=== PATIENT | male | born 1990 | race Caucasian/White ===

== ENCOUNTER 2020-09-18 08:28 | Outpatient (REF) | payer OTHER, SELFPAY ==
--- NOTE | 2020-09-18 | US_ITS ---
EXAMINATION: US ABDOMEN COMPLETE CLINICAL INFORMATION: SALINAS. COMPARISON: Abdominal ultrasound dated 11/08/2019 TECHNIQUE: Real-time imaging of the abdominal viscera. FINDINGS: PANCREAS: Normal. ABDOMINAL AORTA: The proximal, mid and distal segments are normal in caliber. INFERIOR VENA CAVA: Visualized portions are normal. LIVER: The liver is normal in size. The liver contour is normal. Slight increased liver echogenicity noted. No focal hepatic lesion. There is no intrahepatic biliary duct dilatation seen. GALLBLADDER: The gallbladder is physiologically distended without evidence of stones, sludge, polyps, wall thickening, or pericholecystic fluid. There is mild adenomyomatosis. COMMON BILE DUCT: Normal in caliber measuring 0.5 cm in diameter. RIGHT KIDNEY: Normal. No hydronephrosis. No renal calculi or focal parenchymal lesions. The kidney measures 12.2 cm in maximum dimension. LEFT KIDNEY: Normal. No hydronephrosis. No renal calculi or focal parenchymal lesions. The kidney measures 12.7 cm in maximum dimension. SPLEEN: The spleen measures 14.8 cm in maximum dimension. There is mild splenomegaly. FREE FLUID: None. IMPRESSION: Fatty infiltration of liver without any focal lesion or hepatomegaly. Suspect adenomyomatosis of gallbladder wall. Mild splenomegaly. No major change compared to previous study 11/08/2019.
== END 2020-09-18 08:29 | disposition home or self-care (01) ==
LOC: HO.HMGCX 08:28
PROVIDERS: PCP Internal Medicine; Visit Provider Nurse Practitioner
DX: K75.81 Nonalcoholic steatohepatitis (NASH) (principal)
CPT/HCPCS: 76700

== ENCOUNTER 2020-12-14 07:10 | Outpatient (REF) | payer OTHER, SELFPAY ==
[2020-12-14 11:52] LABS: Hematocrit 50.8 % (42-52); Hemoglobin 17.8 g/dl (14.0-18.0); Mean Corpuscular Hemoglobin 30.3 pg (27.0-33.0); Mean Corpuscular Volume 86.4 fL (80-98); Mean Platelet Volume 11.6 fL (9.4-12.4); Platelet Count 190 X10*3/uL (160-400); Red Blood Count 5.88 X10*6/uL (4.60-5.80); White Blood Count 6.4 X10*3/uL (4.8-10.8)
[2020-12-14 12:11] LABS: Alanine Aminotransferase 61 U/L (0-40); Albumin Level 4.4 g/dL (3.5-5.0); Alkaline Phosphatase 112 U/L (39-117); Anion Gap 15 (12-20); Aspartate Amino Transferase 29 U/L (5-37); Bilirubin Total 0.8 mg/dL (0.0-1.0); Blood Urea Nitrogen 16 mg/dL (9-16); Calcium 9.2 mg/dL (8.4-10.2); Carbon Dioxide 28 mmol/L (22-29); Chloride 102 mmol/L (96-108); Cholesterol 136 mg/dL; Estimated Glomerular Filt Rate > 60; Glucose Fasting 90 mg/dL (60-99); HDL Cholesterol 35 mg/dL; LDL Cholesterol Calculated 77 mg/dl; Potassium 4.4 mmol/l (3.3-5.1); Sodium 141 mmol/L (135-145); Total Protein 6.9 g/dL (6.5-8.0); Triglycerides 121 mg/dL
[2020-12-14 14:06] LABS: Glucose Urine UA NEG (NEG); Leukocyte Esterase Urine NEG (NEG); Nitrite Urine NEG (NEG); Specific Gravity - Urine >= 1.030 (1.005-1.025); Urine Blood NEG (NEG); Urine Ketones NEG (NEG); Urine Protein NEG (NEG-TRACE)
[2020-12-14 14:19] LABS: Appearance Urine CLEAR; Color Urine YELLOW
== END 2020-12-14 07:11 | disposition home or self-care (01) ==
LOC: HO.HMGCLDS 07:10
PROVIDERS: PCP Internal Medicine; Visit Provider Internal Medicine
DX: I10 Essential (primary) hypertension (principal); E55.9 Vitamin D deficiency, unspecified
CPT/HCPCS: 36415; 80053; 80061; 81003; 85027

== ENCOUNTER 2021-02-06 08:31 | Outpatient (REF) | payer OTHER, SELFPAY ==
[2021-02-06 11:43] LABS: Alanine Aminotransferase 55 U/L (0-40); Albumin Level 4.3 g/dL (3.5-5.0); Alkaline Phosphatase 114 U/L (39-117); Anion Gap 11 (12-20); Aspartate Amino Transferase 26 U/L (5-37); Bilirubin Total 0.8 mg/dL (0.0-1.0); Blood Urea Nitrogen 19 mg/dL (9-16); Carbon Dioxide 30 mmol/L (22-29); Chloride 103 mmol/L (96-108); Estimated Glomerular Filt Rate > 60; Glucose Fasting 138 mg/dL (60-99); Potassium 4.3 mmol/L (3.3-5.1); Sodium 140 mmol/L (135-145); Total Protein 6.6 g/dL (6.5-8.0)
[2021-02-11 16:07] LABS: Testosterone, Free 65.2 pg/mL (35.0-155.0); Testosterone, Total 263 ng/dL (250-1100)
== END 2021-02-06 08:32 | disposition home or self-care (01) ==
LOC: HO.HMGCLDS 08:31
PROVIDERS: PCP Internal Medicine; Visit Provider Internal Medicine
DX: Z00.00 Encounter for general adult medical examination without abnormal findings (principal); L65.9 Nonscarring hair loss, unspecified
CPT/HCPCS: 36415; 80053; 84402; 84403

== ENCOUNTER → 2021-02-11 11:04 | Outpatient (BNVA) | payer OTHER, SELFPAY | PROVIDERS: PCP Internal Medicine; Visit Provider Nurse Practitioner ==

== ENCOUNTER 2021-02-13 08:31 | Outpatient (REF) | payer OTHER, SELFPAY ==
[2021-02-13 11:19] LABS: Estimated Average Glucose 91 mg/dL; Hemoglobin A1c % 4.8 %
[2021-02-13 11:43] LABS: Anion Gap 11 (12-20); Blood Urea Nitrogen 15 mg/dL (9-16); Carbon Dioxide 30 mmol/L (22-29); Chloride 102 mmol/L (96-108); Estimated Glomerular Filt Rate > 60; Glucose Fasting 83 mg/dL (60-99); Potassium 4.4 mmol/L (3.3-5.1); Sodium 139 mmol/L (135-145)
[2021-02-15 12:21] LABS: Alpha Fetoprotein 1.2 ng/mL (<6.1)
== END 2021-02-13 08:32 | disposition home or self-care (01) ==
LOC: HO.HMGCLDS 08:31
PROVIDERS: Nurse Practitioner; PCP Internal Medicine; Visit Provider Internal Medicine
DX: K75.81 Nonalcoholic steatohepatitis (NASH) (principal); R73.9 Hyperglycemia, unspecified
CPT/HCPCS: 36415; 80048; 82105; 83036

== ENCOUNTER 2021-02-27 08:22 | Outpatient (REF) | payer OTHER, SELFPAY ==
--- NOTE | ~2021-02-27 | US_ITS ---
EXAMINATION: US ABDOMEN LIMITED CLINICAL INFORMATION: Nonalcoholic steatohepatitis. COMPARISON: Ultrasound abdomen complete 09/18/2020 and 11/08/2019. TECHNIQUE: Real-time imaging of the right upper quadrant abdominal viscera. FINDINGS: PANCREAS: Not well visualized due to bowel gas. LIVER: The liver is normal in size. The liver contour is normal. Liver echotexture is increased probably representing fatty infiltration. There is a hypoechoic area adjacent to the gallbladder, characteristic location of focal fatty sparing. No other focal hepatic lesion. There is no intrahepatic biliary duct dilatation seen. GALLBLADDER: Normal. The gallbladder is physiologically distended without evidence of stones, sludge, polyps, wall thickening or pericholecystic fluid. COMMON BILE DUCT: Normal in caliber measuring 0.5 cm in diameter. RIGHT KIDNEY: Normal. No hydronephrosis. No renal calculi or focal parenchymal lesions. The kidney measures 11.7 cm in maximum dimension. FREE FLUID: None. US/US abdomen limited IMPRESSION: Echogenic liver suggestive of fatty infiltration. Nonvisualization of the pancreas.
== END 2021-02-27 08:23 | disposition home or self-care (01) ==
LOC: HO.US 08:22
PROVIDERS: PCP Internal Medicine; Visit Provider Nurse Practitioner
DX: K75.81 Nonalcoholic steatohepatitis (NASH) (principal)
CPT/HCPCS: 76705

== ENCOUNTER 2021-06-27 07:06 | Outpatient (REF) | payer OTHER, SELFPAY ==
[2021-06-27 11:52] LABS: Hematocrit 48.9 % (42-52); Hemoglobin 16.7 g/dl (14.0-18.0); Mean Corpuscular HGB Conc 34.2 g/dl (31.0-36.0); Mean Corpuscular Hemoglobin 29.3 pg (27.0-33.0); Mean Corpuscular Volume 85.9 fL (80-98); Mean Platelet Volume 11.5 fL (9.4-12.4); Platelet Count 163 X10*3/uL (160-400); Red Blood Count 5.69 X10*6/uL (4.60-5.80); Red Cell Distribution Width 13.2 % (11.0-16.0); White Blood Count 5.7 X10*3/uL (4.8-10.8)
[2021-06-27 12:05] LABS: Alanine Aminotransferase 70 U/L (0-40); Albumin Level 4.2 g/dL (3.5-5.0); Alkaline Phosphatase 116 U/L (39-117); Anion Gap 12 (12-20); Aspartate Amino Transferase 34 U/L (5-37); Bilirubin Total 0.6 mg/dL (0.0-1.0); Blood Urea Nitrogen 14 mg/dL (9-16); Calcium 9.1 mg/dL (8.4-10.2); Carbon Dioxide 28 mmol/L (22-29); Chloride 105 mmol/L (96-108); Cholesterol 123 mg/dL; Estimated Glomerular Filt Rate > 60; Glucose Fasting 99 mg/dL (60-99); HDL Cholesterol 31 mg/dL; LDL Cholesterol Calculated 64 mg/dl; Potassium 4.4 mmol/L (3.3-5.1); Sodium 141 mmol/L (135-145); Total Protein 6.5 g/dL (6.5-8.0); Triglycerides 141 mg/dL
== END 2021-06-27 07:07 | disposition home or self-care (01) ==
LOC: HO.HMGCLDS 07:06
PROVIDERS: PCP Internal Medicine; Visit Provider Internal Medicine
DX: Z00.00 Encounter for general adult medical examination without abnormal findings (principal); K75.81 Nonalcoholic steatohepatitis (NASH)
CPT/HCPCS: 36415; 80053; 80061; 85027

== ENCOUNTER → 2021-08-19 08:42 | Outpatient (BNVA) | payer OTHER, SELFPAY | PROVIDERS: PCP Internal Medicine; Visit Provider Nurse Practitioner ==

== ENCOUNTER 2021-09-03 08:40 | Outpatient (REF) | payer OTHER, SELFPAY ==
--- NOTE | ~2021-09-03 | US_ITS ---
EXAMINATION: US ABDOMEN LIMITED CLINICAL INFORMATION: Nonalcoholic steatohepatitis. COMPARISON: Limited abdominal ultrasound 02/27/2021. Complete abdominal ultrasound 09/18/2020. TECHNIQUE: Real-time imaging of the right upper quadrant abdominal viscera. FINDINGS: PANCREAS: Not well visualized due to bowel gas. LIVER: The liver is normal in size. The liver contour is normal. Liver echotexture is increased probably representing fatty infiltration. There are small hypoechoic areas adjacent to the gallbladder, characteristic location of focal fatty sparing. No other focal hepatic lesion. There is no intrahepatic biliary duct dilatation seen. GALLBLADDER: There is adenomyomatosis of the gallbladder wall. No gallstones are seen. The gallbladder is normal in size. COMMON BILE DUCT: Normal in caliber measuring 0.4 cm in diameter. RIGHT KIDNEY: Normal. No hydronephrosis. No renal calculi or focal parenchymal lesions. The kidney measures 11.1 cm in maximum dimension. FREE FLUID: None. US/US abdomen limited IMPRESSION: Echogenic liver probably representing fatty infiltration. Adenomyomatosis of the gallbladder wall. Limited visualization of the pancreas.
== END 2021-09-03 08:41 | disposition home or self-care (01) ==
LOC: HO.US 08:40
PROVIDERS: PCP Internal Medicine; Visit Provider Nurse Practitioner
DX: E66.3 Overweight (principal); K75.81 Nonalcoholic steatohepatitis (NASH); D13.5 Benign neoplasm of extrahepatic bile ducts
CPT/HCPCS: 76705

== ENCOUNTER 2022-01-07 07:52 | Outpatient (REF) | payer OTHER, SELFPAY ==
[2022-01-07 11:45] LABS: Estimated Average Glucose 103 mg/dL; Hemoglobin A1c % 5.2 %
[2022-01-07 12:06] LABS: TSH reflex Free T4 2.69 uIU/mL (0.32-4.0)
[2022-01-07 12:07] LABS: Alanine Aminotransferase 96 U/L (0-40); Albumin Level 4.3 g/dL (3.5-5.0); Alkaline Phosphatase 106 U/L (39-117); Anion Gap 12 (12-20); Aspartate Amino Transferase 41 U/L (5-37); Blood Urea Nitrogen 17 mg/dL (9-16); Calcium 9.7 mg/dL (8.4-10.2); Carbon Dioxide 28 mmol/L (22-29); Chloride 106 mmol/L (96-108); Cholesterol 140 mg/dL; Estimated Glomerular Filt Rate > 60; Glucose Fasting 103 mg/dL (60-99); HDL Cholesterol 31 mg/dL; LDL Cholesterol Calculated 86 mg/dl; Potassium 4.8 mmol/L (3.3-5.1); Sodium 141 mmol/L (135-145); Triglycerides 117 mg/dL
[2022-01-09 03:17] LABS: Prolactin 8.4 ng/mL (2.0-18.0)
[2022-01-13 15:55] LABS: Testosterone, Free 73.2 pg/mL (35.0-155.0); Testosterone, Total 274 ng/dL (250-1100)
== END 2022-01-07 07:53 | disposition home or self-care (01) ==
LOC: HO.HMGCLDS 07:52
PROVIDERS: Visit Provider Internal Medicine
DX: Z00.00 Encounter for general adult medical examination without abnormal findings (principal); I10 Essential (primary) hypertension; N52.9 Male erectile dysfunction, unspecified; R73.9 Hyperglycemia, unspecified
CPT/HCPCS: 36415; 80053; 80061; 83036; 84146; 84402; 84403; 84443

== ENCOUNTER → 2022-02-20 08:37 | Outpatient (BNVA) | payer OTHER, SELFPAY | PROVIDERS: PCP Internal Medicine; Visit Provider Nurse Practitioner | DX: K75.81 Nonalcoholic steatohepatitis (NASH) (principal) | CPT/HCPCS: 99212 ==

== ENCOUNTER 2022-04-16 09:01 | Outpatient (REF) | payer OTHER, SELFPAY ==
--- NOTE | ~2022-04-16 | XR_ITS ---
EXAMINATION: XR thoracic spine 2V CLINICAL INFORMATION: Reason for Exam M54.50 - Low back pain, unspecified COMPARISON: None TECHNIQUE: 3 views of the thoracic spine XR/XR thoracic spine 2V FINDINGS/IMPRESSION: * Vertebral body heights and alignment are maintained without evidence of acute fracture. * Disc space heights are maintained without significant degenerative disc disease.
--- NOTE | ~2022-04-16 | XR_ITS ---
EXAMINATION: XR lumbar spine 2-3V CLINICAL INFORMATION: Reason for Exam M54.50 - Low back pain, unspecified COMPARISON: None TECHNIQUE: 3 views of the lumbar spine XR/XR lumbar spine 2-3V FINDINGS/IMPRESSION: * Vertebral body heights and alignment are maintained without evidence of acute fracture. * Mild degenerative disc disease at the thoracolumbar junction with borderline loss of disc space height and degenerative endplate spurring.
== END 2022-04-16 09:02 | disposition home or self-care (01) ==
LOC: HO.HMGCX 09:01
PROVIDERS: PCP Internal Medicine; Visit Provider Internal Medicine
DX: M54.50 Low back pain, unspecified (principal); M54.9 Dorsalgia, unspecified
CPT/HCPCS: 72070; 72100

== ENCOUNTER → 2022-05-20 13:18 | Outpatient (BNVA) | payer OTHER, SELFPAY | PROVIDERS: PCP Internal Medicine; Visit Provider Dietitian, Registered | DX: E66.9 Obesity, unspecified (principal); Z68.37 Body mass index [BMI] 37.0-37.9, adult | CPT/HCPCS: 97802 ==

== ENCOUNTER → 2022-08-19 12:56 | Outpatient (BNVA) | payer OTHER, SELFPAY | PROVIDERS: PCP Internal Medicine; Visit Provider Dietitian, Registered | DX: E66.9 Obesity, unspecified (principal); Z68.34 Body mass index [BMI] 34.0-34.9, adult; Z71.3 Dietary counseling and surveillance | CPT/HCPCS: 97803 ==

== ENCOUNTER 2022-08-26 08:01 | Outpatient (REF) | payer OTHER, SELFPAY ==
[2022-08-26 11:54] LABS: Alanine Aminotransferase 61 U/L (0-40); Albumin Level 4.4 g/dL (3.5-5.0); Alkaline Phosphatase 108 U/L (39-117); Aspartate Amino Transferase 28 U/L (5-37); Bilirubin Direct 0.3 mg/dL (0.0-0.5); Bilirubin Total 0.6 mg/dL (0.0-1.0); C Reactive Protein 0.24 mg/dL (< or = 0.50); Gamma Glutamyl Transpeptidase 68 U/L (11-51); Total Protein 6.6 g/dL (6.5-8.0); Uric Acid 7.1 mg/dL (3.4-7.0)
[2022-08-26 12:09] LABS: Rheumatoid Factor < 15.0 IU/mL (<15.0)
[2022-08-26 12:13] LABS: Ferritin 71 ng/mL (20-250)
[2022-08-26 12:14] LABS: Erythrocyte Sedimentation Rate 2 MM/HR (0-15)
[2022-08-29 12:51] LABS: Anti Nuclear Antibody Screen POSITIVE (NEGATIVE)
[2022-08-29 13:56] LABS: Alpha Fetoprotein 1.5 ng/mL (<6.1)
[2022-08-29 17:57] LABS: Cyclic Citrullinated Peptide <16 UNITS
== END 2022-08-26 08:02 | disposition home or self-care (01) ==
LOC: HO.HMGCLDS 08:01
PROVIDERS: PCP Internal Medicine; Visit Provider Nurse Practitioner
DX: K75.81 Nonalcoholic steatohepatitis (NASH) (principal); M25.50 Pain in unspecified joint; Z82.61 Family history of arthritis
CPT/HCPCS: 36415; 80076; 82105; 82728; 82977; 84550; 85652; 86038; 86039; 86140; 86200; 86431

== ENCOUNTER 2022-10-14 08:17 | Outpatient (REF) | payer OTHER, SELFPAY ==
--- NOTE | ~2022-10-14 | US_ITS ---
EXAMINATION: US ABDOMEN LIMITED WITH LIVER ELASTOGRAPHY CLINICAL INFORMATION: SALINAS. COMPARISON: None. TECHNIQUE: Real-time imaging of the abdominal viscera. Noninvasive ultrasound liver fibrosis assessment is performed using Sonny ElastPQ point quantification shear wave elastography (2D-SWE) with a C5-2 MHz transducer. Multiple elastography samples are obtained. FINDINGS: PANCREAS: The visualized pancreatic body is normal in appearance. The remainder of the pancreas is obscured from visualization by the overlying bowel gas. LIVER: The liver demonstrates normal size, contour and increased echogenicity. There is focal fatty sparing near the gallbladder. No solid lesions seen. There is no intrahepatic nor extrahepatic ductal dilatation. The right lobe measures 14.9 cm in length. The left lobe measures 9.5 cm in length. Portal flow is hepatopedal. Shear wave liver elastography median stiffness is 1.82 m/s (reference: normal median stiffness is 1.3 m/s or less). IQR/median stiffness to assess sampling precision is 0.11 (reference: good quality data set is IQR/median stiffness of 0.15 or less). GALLBLADDER: There is nonmobile echogenic area along the inner gallbladder wall likely adenomyomatosis. No echogenic stones or wall thickening seen. COMMON BILE DUCT: Normal in caliber measuring 0.3 cm in diameter. RIGHT KIDNEY: Normal. No hydronephrosis. No renal calculi or focal parenchymal lesions. The kidney measures 11.1 cm in maximum dimension. FREE FLUID: None. US/US abdomen santos w elastography IMPRESSION: 1. Hepatic steatosis with focal area of fatty sparing near the gallbladder. 2. Liver elastography: Median liver stiffness measures 1.82 m/s which corresponds to cACLD (suggestive). REFERENCE: Society of Radiologists in Ultrasound Liver Stiffness Thresholds (2020): LIVER STIFFNESS THRESHOLDS: *Liver Stiffness equal or less than 1.3 m/s: High probability of being normal. *Liver Stiffness less than 1.7 m/s: In the absence of other known clinical signs, rules out compensated advanced chronic liver disease. *Liver Stiffness 1.7-2.1 m/s: Suggestive of compensated advanced chronic liver disease but need further test for confirmation. *Liver Stiffness over 2.1 m/s: Rules in compensated advanced chronic liver disease. *Liver Stiffness over 2.4 m/s: Suggestive of clinically significant portal hypertension. QUALITY OF DATA SET: *IQR/Median value equal or less than 0.15 implies a quality data set. *IQR/Median value over 0.15 implies a poor quality data set. SIGNIFICANT CHANGE FROM PRIOR EXAM: Significant change if liver stiffness measurement is 10% or greater from prior exam. OTHER CONSIDERATIONS: The stage of liver fibrosis may be overestimated in the setting of acute hepatitis, liver inflammation, elevated liver function tests, hepatic vascular congestion, obstructive cholestasis, non-fasting state, and infiltrative diseases such as amyloidosis and lymphoma. In some patients with NAFLD, the liver stiffness thresholds for compensated advanced chronic liver disease may be lower. In causes other than viral hepatitis and NAFLD, liver stiffness thresholds are not well established.
== END 2022-10-14 08:18 | disposition home or self-care (01) ==
LOC: HO.US 08:17
PROVIDERS: Visit Provider Nurse Practitioner
DX: K75.81 Nonalcoholic steatohepatitis (NASH) (principal)
CPT/HCPCS: 76705; 76981

== ENCOUNTER 2022-12-23 07:50 | Outpatient (REF) | payer OTHER, SELFPAY ==
[2022-12-23 11:57] LABS: Hematocrit 47.8 % (42.0-52.0); Hemoglobin 16.7 g/dl (14.0-18.0); Mean Corpuscular HGB Conc 34.9 g/dl (31.0-36.0); Mean Platelet Volume 11.4 fL (9.4-12.4); Platelet Count 183 X10*3/uL (160-400); Red Blood Count 5.56 X10*6/uL (4.60-5.80); Red Cell Distribution Width 13.9 % (11.0-16.0); White Blood Count 5.8 X10*3/uL (4.8-10.8)
[2022-12-23 12:22] LABS: Alanine Aminotransferase 91 U/L (0-40); Albumin Level 4.2 g/dL (3.5-5.0); Alkaline Phosphatase 118 U/L (39-117); Anion Gap 13 (12-20); Aspartate Amino Transferase 40 U/L (5-37); Bilirubin Total 0.9 mg/dL (0.0-1.0); Blood Urea Nitrogen 16 mg/dL (9-16); Calcium 9.7 mg/dL (8.4-10.2); Carbon Dioxide 26 mmol/L (22-29); Chloride 105 mmol/L (96-108); Cholesterol 125 mg/dL; Estimated Glomerular Filt Rate > 60; Glucose Fasting 103 mg/dL (60-99); HDL Cholesterol 31 mg/dL; LDL Cholesterol Calculated 69 mg/dl; Potassium 4.4 mmol/L (3.3-5.1); Sodium 140 mmol/L (135-145); Total Protein 6.6 g/dL (6.5-8.0); Triglycerides 127 mg/dL
== END 2022-12-23 07:51 | disposition home or self-care (01) ==
LOC: HO.HMGCLDS 07:50
PROVIDERS: PCP Internal Medicine; Visit Provider Internal Medicine
DX: Z00.00 Encounter for general adult medical examination without abnormal findings (principal); K75.81 Nonalcoholic steatohepatitis (NASH); R73.9 Hyperglycemia, unspecified; I10 Essential (primary) hypertension
CPT/HCPCS: 36415; 80053; 80061; 85027

== ENCOUNTER → 2023-01-21 08:16 | Outpatient (BNVA) | payer OTHER, SELFPAY | PROVIDERS: PCP Nurse Practitioner Family; Referring Provider Nurse Practitioner Family; Visit Provider Nurse Practitioner | DX: Z13.89 Encounter for screening for other disorder (principal) ==

== ENCOUNTER 2023-01-23 10:48 | Outpatient (REF) | payer OTHER, SELFPAY ==
[2023-01-23 14:33] LABS: Gamma Glutamyl Transpeptidase 128 U/L (11-51); Uric Acid 5.2 mg/dL (3.4-7.0)
[2023-01-23 14:42] LABS: Ferritin 110 ng/mL (20-250)
[2023-01-26 14:08] LABS: Alpha Fetoprotein 1.3 ng/mL (<6.1)
== END 2023-01-23 10:49 | disposition home or self-care (01) ==
LOC: HO.HMGCLDS 10:48
PROVIDERS: PCP Nurse Practitioner Family; Visit Provider Nurse Practitioner
DX: K75.81 Nonalcoholic steatohepatitis (NASH) (principal); R73.01 Impaired fasting glucose; E79.0 Hyperuricemia without signs of inflammatory arthritis and tophaceous disease
CPT/HCPCS: 36415; 82105; 82728; 82977; 84550

== ENCOUNTER 2023-02-26 08:29 | Outpatient (REF) | payer OTHER, SELFPAY ==
--- NOTE | ~2023-02-26 | US_ITS ---
EXAMINATION: US ABDOMEN LIMITED CLINICAL INFORMATION: Nonalcoholic steatohepatitis. COMPARISON: Limited abdominal ultrasound with elastography 10/14/2022. Limited abdominal ultrasound 09/03/2021. TECHNIQUE: Real-time imaging of the right upper quadrant abdominal viscera. FINDINGS: PANCREAS: Normal. LIVER: The liver is normal in size. The liver contour is normal. There is diffuse increased liver parenchymal echogenicity. No focal hepatic lesion. There is no intrahepatic biliary duct dilatation seen. GALLBLADDER: Normal. The gallbladder is physiologically distended without evidence of stones, sludge, polyps, wall thickening or pericholecystic fluid. COMMON BILE DUCT: Normal in caliber measuring 0.4 cm in diameter. RIGHT KIDNEY: Normal. No hydronephrosis. No renal calculi or focal parenchymal lesions. The kidney measures 11.3 cm in maximum dimension. FREE FLUID: None. US/US abdomen limited IMPRESSION: There is generalized increase in hepatic echotexture, consistent with fatty infiltration or hepatocellular disease. Please correlate clinically. Provided history of nonalcoholic steatohepatitis noted. No focal hepatic mass or intrahepatic biliary dilatation is seen.
== END 2023-02-26 08:30 | disposition home or self-care (01) ==
LOC: HO.HMGCX 08:29
PROVIDERS: PCP Nurse Practitioner Family; Visit Provider Nurse Practitioner
DX: K75.81 Nonalcoholic steatohepatitis (NASH) (principal); R73.01 Impaired fasting glucose
CPT/HCPCS: 76705

== ENCOUNTER → 2023-03-02 09:01 | Outpatient (BNVA) | payer OTHER, SELFPAY | PROVIDERS: PCP Nurse Practitioner Family; Visit Provider Dietitian, Registered | DX: E66.9 Obesity, unspecified (principal); Z71.3 Dietary counseling and surveillance | CPT/HCPCS: 97803 ==

== ENCOUNTER → 2023-03-10 13:16 | Outpatient (BNVA) | payer OTHER, SELFPAY | PROVIDERS: PCP Nurse Practitioner Family; Visit Provider Student in an Organized Health Care Education/Training Program | DX: Z13.89 Encounter for screening for other disorder (principal) ==

== ENCOUNTER 2023-03-16 08:35 | Outpatient (REF) | payer OTHER, SELFPAY ==
--- NOTE | ~2023-03-16 | XR_ITS ---
EXAMINATION: XR HAND WRIST, RIGHT XR HAND WRIST, LEFT CLINICAL INFORMATION: L40.50 - Arthropathic psoriasis, unspecified COMPARISON: None TECHNIQUE: Each hand and wrist are imaged in 3 large [id number] images. There are a total of 6 views, 3 on each side. FINDINGS: Right: Normal bony mineralization. No periarticular demineralization or appreciable focal soft tissue swelling. No fracture or dislocation or destructive process. There is slight negative ulnar variance. The carpus shows no joint narrowing or erosive change or chondrocalcinosis. The MCP and interphalangeal joints are unremarkable. Left: Normal bony mineralization. No periarticular demineralization or appreciable focal soft tissue swelling. No fracture or dislocation or destructive process. There is mild negative ulnar variance. The carpus shows no joint narrowing or erosive change or chondrocalcinosis. The MCP and interphalangeal joints are unremarkable. XR/XR hand wrist RT IMPRESSION: -No joint narrowing or erosive changes.
--- NOTE | ~2023-03-16 | XR_ITS ---
EXAMINATION: XR SACROILIAC JOINTS CLINICAL INFORMATION: L40.50 - Arthropathic psoriasis, unspecified COMPARISON: Lumbar spine radiographs 04/16/2022. TECHNIQUE: 3 views of the sacroiliac joints FINDINGS: The SI joints show no ankylosis, definite erosive changes, or subchondral sclerosis. No diastases. No spondylolysis lumbosacral junction. The pubis and hips are unremarkable. XR/XR sacroiliac joint min 3V IMPRESSION: Unremarkable SI joints.
--- NOTE | ~2023-03-16 | XR_ITS ---
EXAMINATION: XR HAND WRIST, RIGHT XR HAND WRIST, LEFT CLINICAL INFORMATION: L40.50 - Arthropathic psoriasis, unspecified COMPARISON: None TECHNIQUE: Each hand and wrist are imaged in 3 large [id number] images. There are a total of 6 views, 3 on each side. FINDINGS: Right: Normal bony mineralization. No periarticular demineralization or appreciable focal soft tissue swelling. No fracture or dislocation or destructive process. There is slight negative ulnar variance. The carpus shows no joint narrowing or erosive change or chondrocalcinosis. The MCP and interphalangeal joints are unremarkable. Left: Normal bony mineralization. No periarticular demineralization or appreciable focal soft tissue swelling. No fracture or dislocation or destructive process. There is mild negative ulnar variance. The carpus shows no joint narrowing or erosive change or chondrocalcinosis. The MCP and interphalangeal joints are unremarkable. XR/XR hand wrist LT IMPRESSION: -No joint narrowing or erosive changes.
== END 2023-03-16 08:36 | disposition home or self-care (01) ==
LOC: HO.HMGCX 08:35
PROVIDERS: PCP Nurse Practitioner Family; Visit Provider Student in an Organized Health Care Education/Training Program
DX: L40.50 Arthropathic psoriasis, unspecified (principal)
CPT/HCPCS: 72202; 73110; 73130

== ENCOUNTER 2023-03-17 08:52 | Outpatient (REF) | payer OTHER, SELFPAY ==
[2023-03-17 11:07] LABS: MANUAL DIFF FLAG NO
[2023-03-17 11:36] LABS: Basophils Percent Auto 0.1 % (0-2); Eosinophils Absolute Auto 0.1 X10*3/uL (0.0-0.4); Eosinophils Percent Auto 0.5 % (0-4); Hematocrit 49.9 % (42.0-52.0); Hemoglobin 17.5 g/dl (14.0-18.0); Imm Gran Abs Auto 0.04 X10*3/uL (0.00-0.03); Imm Gran Pct Auto 0.4 % (0.0-0.4); Lymphocytes Absolute Auto 2.9 X10*3/uL (1.2-4.9); Lymphocytes Percent Auto 27.5 % (20-40); Mean Corpuscular HGB Conc 35.1 g/dl (31.0-36.0); Mean Corpuscular Hemoglobin 30.1 pg (27.0-33.0); Mean Corpuscular Volume 85.7 fL (80.0-98.0); Mean Platelet Volume 11.4 fL (9.4-12.4); Monocytes Absolute Auto 0.5 X10*3/uL (0.1-1.2); Monocytes Percent Auto 4.3 % (2-11); Neutrophils Percent Auto 67.2 % (45-73); Platelet Count 206 X10*3/uL (160-400); Red Blood Count 5.82 X10*6/uL (4.60-5.80); Red Cell Distribution Width 13.2 % (11.0-16.0); White Blood Count 10.4 X10*3/uL (4.8-10.8)
[2023-03-17 11:46] LABS: Alanine Aminotransferase 58 U/L (0-40); Albumin Level 4.3 g/dL (3.5-5.0); Alkaline Phosphatase 115 U/L (39-117); Anion Gap 12 (12-20); Aspartate Amino Transferase 22 U/L (5-37); Bilirubin Total 1.2 mg/dL (0.0-1.0); Blood Urea Nitrogen 14 mg/dL (9-16); C Reactive Protein 0.24 mg/dL (< or = 0.50); Calcium 9.2 mg/dL (8.4-10.2); Carbon Dioxide 26 mmol/L (22-29); Chloride 106 mmol/L (96-108); Estimated Glomerular Filt Rate > 60; Glucose Random 156 mg/dL (60-115); Potassium 4.1 mmol/L (3.3-5.1); Sodium 140 mmol/L (135-145); Total Protein 6.5 g/dL (6.5-8.0)
[2023-03-17 12:10] LABS: Erythrocyte Sedimentation Rate 1 MM/HR (0-15)
[2023-03-18 07:20] LABS: HBS Num1 1.04 mIU/mL (0-7.99); HBsAGNum1 0.39 S/CO (0.00-0.99); Hepatitis A Antibody IgM 0.19 Index (0-0.79); Hepatitis B Core Antibody Nonreactive (Nonreactive); Hepatitis B Surface Antigen Negative (Negative); ~HepC Num1 0.32 S/CO (0.00-0.79); ~Hepatitis A Antibody IgM Nonreactive (Nonreactive); ~Hepatitis B Surface Antibody NONREACTIVE (Nonreactive); ~Hepatitis C Antibody Nonreactive (Nonreactive)
[2023-03-19 13:43] LABS: Prot Elec - Alpha1 0.2 g/dL (0.2-0.3); Prot Elec - Alpha2 0.5 g/dL (0.5-0.9); Prot Elec - Beta 1 0.4 g/dL (0.4-0.6); Prot Elec - Beta 2 0.3 g/dL (0.2-0.5); Prot Elec - Gamma 0.9 g/dL (0.8-1.7); Prot Elec - Total Protein 6.4 g/dL (6.1-8.1)
[2023-03-19 15:34] LABS: IgA 120 mg/dL (47-310); IgG 1027 mg/dL (600-1640); IgM 51 mg/dL (50-300)
[2023-03-19 19:53] LABS: TS Negative Control Passed; TS Panel A 1; TS Panel B 0; TS Positive Control Passed; TSpotTB Negative (Negative)
== END 2023-03-17 08:53 | disposition home or self-care (01) ==
LOC: HO.HMGCLDS 08:52
PROVIDERS: PCP Nurse Practitioner Family; Visit Provider Student in an Organized Health Care Education/Training Program
DX: L40.50 Arthropathic psoriasis, unspecified (principal); Z11.7 Encounter for testing for latent tuberculosis infection; Z11.59 Encounter for screening for other viral diseases; Z72.89 Other problems related to lifestyle
CPT/HCPCS: 36415; 80053; 82784; 84165; 85025; 85652; 86140; 86334; 86481; 86704; 86706; 86709; 86803; 87340

== ENCOUNTER → 2023-04-13 09:08 | Outpatient (BNVA) | payer OTHER, SELFPAY | PROVIDERS: PCP Nurse Practitioner Family; Visit Provider Dietitian, Registered | DX: E66.9 Obesity, unspecified (principal); Z68.37 Body mass index [BMI] 37.0-37.9, adult; Z71.3 Dietary counseling and surveillance | CPT/HCPCS: 97803 ==

== ENCOUNTER 2023-06-25 09:20 | Outpatient (AMB) | payer OTHER, SELFPAY ==
--- NOTE | 2023-06-25 09:28 | A.OFFVIS_ITS ---
Intake Vital Signs 06/25/23 09:31 Height 6 ft 4 in Weight 312 lb BMI 38.0 BP 132/84 Blood Pressure Location Rt brachial Position Sitting Pulse 91 Pulse Source Pulse Oximeter Pulse Oximetry (%) 98 Oxygen Delivery Method Room Air Intake Visit Reasons: [id number] Intake Note: Patient presents for evaluation for polyneuropathy Allergies acetaminophen [ACETAMINOPHEN] Allergy (Severe, Verified 06/25/23 09:34) HIVES, SWOLLEN LIPS Sulfa (Sulfonamide Antibiotics) [SULFA (SULFONAMIDE ANTIBIOTICS)] Allergy (Intermediate, Verified 06/25/23 09:34) RASH chlorthalidone Adverse Reaction (Unknown, Verified 06/25/23 09:34) impotence Medication List - Last Reconciled 06/25/23 by Tanika Burkett MD allopurinol 300 mg PO DAILY apremilast (Otezla) 30 mg PO BID ibuprofen 600 mg PO Q6H PRN losartan 100 mg PO DAILY tadalafil 10 mg PO DAILY PRN triamcinolone acetonide 0.025% 1 appl topical BID HPI HPI Comments History of Present Illness Details 33y/o male for psoriatic arthritis comes for evaluation of neuropathy. In PAri2022 he was diagnosed with Psoriasis. He reports sensory symptoms in his legs since childhood with worsening in the past 5 years. The symptoms are mostly at night and while driving or at rest. He describes the sensation as tingling, vibration , inability to sit still, feels like band around his feet, cramps. He usually feel better if he walks arou nd or rubs his legs or move his legs walks around . His sleep is disrupted because of these symptoms. when he wakes up in the middle of the night he also feels his arms and shoulders have discomfort as well.He also has leg jerks at night. He has snoring, excessive daytime fatigue.He had home sleep test in 2018 and was inconclusive.He gained 40 lbs since then . He has family h/o Crohns disease [facility] Medical History (Updated 06/25/23 @ 09:59 by Tanika Burkett MD) Alopecia Annual physical exam Depression Erectile dysfunction HTN (hypertension) Hypersomnia Lower back pain Mid back pain on right side Nocturnal leg cramps Overweight Snoring Vitamin D deficiency Surgical History History of wisdom tooth extraction Family History Father Diverticulitis Arthritis Mother Bipolar disorder HTN (hypertension) Maternal Grandmother No problems noted. Maternal Grandfather Stroke Unknown family medical history Paternal Grandmother No problems noted. Paternal Grandfather Unknown family medical history Brother No problems noted. 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/hazards: No Cognitive needs: No Hearing needs: No Vision needs: Yes Review of Systems Const Reports fatigue and Reports weight gain ENT Reports tinnitus Musc Reports arthralgias, Reports joint swelling and Reports stiffness Skin/Breast Reports alopecia and Reports rash Endo Reports fatigue Physical Exam Vital Signs: Last Vital Signs Pulse 91 06/25/23 09:31 BP 132/84 06/25/23 09:31 Pulse Ox 98 06/25/23 09:31 Oxygen Delivery Method Room Air 06/25/23 09:31 BMI result Body Mass Index 38.0 Assessment & Plan Assessment & Plan (1) Restless legs syndrome (RLS): Code(s): G25.81 - Restless legs syndrome (2) Snoring: Code(s): R06.83 - Snoring (3) Hypersomnia: Code(s): G47.10 - Hypersomnia, unspecified (4) Nocturnal leg cramps: Code(s): G47.62 - Sleep related leg cramps Plan I will evaluate him with home sleep test to r/o sleep apnea. Check his thyroid levels, Vit B 12 and Vit D levels to r/o reversible causes of RLS I will trial him on ropinirole XR 2mg qhs and will consider EMG Orders: Orders TSH reflex Free T4 Today G62.9 - Polyneuropathy, unspecified Vitamin B12 and Folate Today G62.9 - Polyneuropathy, unspecified Vitamin D 25-OH (D2 and D3) Today G62.9 - Polyneuropathy, unspecified RT home sleep study Today G47.10 - Hypersomnia, unspecified, G47.62 - Sleep related leg cramps, G62.9 - Polyneuropathy, unspecified, R06.83 - Snoring Medications: New ropinirole ER 2 mg PO BEDTIME 30 tabs 6RF Coding Level of Care Code New Pt Level 4 (72148) Diagnoses Restless legs syndrome (RLS) G25.81 Snoring R06.83 Hypersomnia G47.10 Nocturnal leg cramps G47.62
[2023-06-25 09:31] VITALS: BP 132/84; PULSE 91; O2SAT 98; BMI 38.0
== END 2023-06-25 10:00 | disposition home or self-care (01) ==
PROVIDERS: Visit Provider Psychiatry & Neurology Neurology
DX: G25.81 Restless legs syndrome (principal); R06.83 Snoring; G47.10 Hypersomnia, unspecified; G47.62 Sleep related leg cramps
CPT/HCPCS: 99204

== ENCOUNTER → 2023-06-25 09:20 | Outpatient (BNVA) | payer OTHER, SELFPAY | PROVIDERS: Visit Provider Psychiatry & Neurology Neurology ==

== ENCOUNTER 2023-07-10 08:07 | Outpatient (REF) | payer OTHER, SELFPAY ==
[2023-07-10 13:34] LABS: TSH reflex Free T4 2.58 uIU/mL (0.32-4.0)
[2023-07-10 13:52] LABS: Folate 8.2 ng/mL (> or = 4.0); Vitamin B12 1063 pg/mL (200-900)
[2023-07-15 14:34] LABS: Vitamin D 25-OH, D2 <4 ng/mL; Vitamin D 25-OH, D3 28 ng/mL; Vitamin D 25-OH, Total 28 ng/mL (30-100)
== END 2023-07-10 08:08 | disposition home or self-care (01) ==
LOC: HO.HMGCLDS 08:07
PROVIDERS: Psychiatry & Neurology Neurology; PCP Nurse Practitioner Family; Visit Provider Nurse Practitioner Family
DX: G62.9 Polyneuropathy, unspecified (principal)
CPT/HCPCS: 36415; 82306; 82607; 82746; 84443

== ENCOUNTER 2023-07-21 07:55 | Outpatient (AMB) | payer OTHER, SELFPAY ==
--- NOTE | 2023-07-21 08:06 | A.OFFVIS_ITS ---
Intake Vital Signs 07/21/23 08:08 Height 6 ft 4 in Weight 311 lb 11.738 oz BMI 37.9 BP 141/74 H Blood Pressure Location Lt brachial Position Sitting Pulse 85 Intake Visit Reasons: 6 month fu Intake Note: Cheko presents in office as a est.patient for a 6month f/u PT CC: pt reports having Diarrhea pt denies any other GI Issues Barrel Bung Remover And Dumper Required: No Accompanied by: Self / Same As Patient Allergies acetaminophen [ACETAMINOPHEN] Allergy (Severe, Verified 07/21/23 08:09) HIVES, SWOLLEN LIPS Sulfa (Sulfonamide Antibiotics) [SULFA (SULFONAMIDE ANTIBIOTICS)] Allergy (Intermediate, Verified 07/21/23 08:09) RASH chlorthalidone Adverse Reaction (Unknown, Verified 07/21/23 08:09) impotence HPI 6 month fu HPI Details Assessment & Plan (1) SALINAS (nonalcoholic steatohepatitis): ?Comment: BASELINE LABS:? 05/2018 liver functions normal, 06/2018 autoimmune workup and hepatitis screening negative, initial alpha fetoprotein 1.1, 2. Elevated bilirubin - R17, Gilbert's syndrome, direct bili is normal CURRENT LABS 12/23/22 Plt Count 183 Total Bilirubin 0.9 AST 40 H ALT 91 H Alkaline Phosphatase 118 H 12/23/22 Fasting Glucose 103 H US OF THE ABD 10/16/22 IMPRESSION: 1. Hepatic steatosis with focal area of fatty sparing near the gallbladder. ? 2. Liver elastography: Median liver stiffness measures 1.82 m/s? which corresponds to cACLD (suggestive). ?Code(s): K75.81 - Nonalcoholic steatohepatitis (SALINAS) ?Plan: His wt is down 2 lbs! He has been really trying to walk every day and track his calories to 1600/day. We discuss the rising blood glucose and the risk of diabetes. He continues on the allopurinol and has a rheum appt in February. He may be looking for a new PCP due to Staff changes in scheduling issues at his current office. He is agreeable to having labs today including AFP and uric acid.? He has an upcoming appointment in February with Rheumatology for his joint aches and pains.? Again, his father has a history of psoriatic arthritis. ROV 6 mos. (2) Overweight: ?Code(s): E66.3 - Overweight (3) Impaired fasting glucose: ?Code(s): R73.01 - Impaired fasting glucose (4) Elevated uric acid in blood: ?Code(s): E79.0 - Hyperuricemia without signs of inflammatory arthritis and tophaceous disease ? ? ? Orders: Orders Alpha Fetoprotein Today K75.81 - Nonalcoho lic steatohepatiti s (SALINAS), R73.01 - Impaired fasting glucose ? Ferritin Today K75.81 - Nonalcoho lic steatohepatiti s (SALINAS), R73.01 - Impaired fasting glucose ? Gamma Glutamyl Tra nspeptidase Today K75.81 - Nonalcoho lic steatohepatiti s (SALINAS), R73.01 - Impaired fasting glucose ? Uric Acid Today E79.0 - Hyperurice randolph without signs of inflammatory ar thritis and tophac eous disease ? US abdomen limited Today K75.81 - Nonalcoho lic steatohepatiti s (SALINAS), R73.01 - Impaired fasting glucose ? LABS: not obtained (?? lab error as orders are missing) ULTRASOUND OF THE ABDOMEN 03/03/23? IMPRESSION: There is generalized increase in hepatic echotexture, consistent with fatty infiltration or hepatocellular disease. Please correlate clinically. Provided history of nonalcoholic steatohepatitis noted. No focal hepatic mass or intrahepatic biliary dilatation is seen. ? 03/03/23? TODAY'S VISIT It was decided that he has psoriatic arthritis and he was started on Otezla. His hands are hurting worse. He does experience diarrhea with the medication, dick because he had a gap in insurance and missed some dosing. He was started on ropinerole for RLS by neurology and now he is sleeping better. He has an upcoming sleep study. He admits he is snacking more r/t s/e of above and has gained some weight. Willing to repeat labs, re ordered. I encouraged him to keep his eye on the long-term goal of controlling his weight as he ages to best protect his liver. I understand he is going through a lot of changes and adjustments with the medications and he is eating more carbs because he finds it is settling to his stomach. We discussed options such as perhaps taking care its with him to snack on to keep some fiber in his stomach to see if this will be helpful. ROV 6 mos. PFSH Medical History Alopecia Annual physical exam Depression Erectile dysfunction HTN (hypertension) Hypersomnia Lower back pain Mid back pain on right side Nocturnal leg cramps Overweight Snoring Vitamin D deficiency Surgical History History of wisdom tooth extraction Family History Father Diverticulitis Arthritis Mother Bipolar disorder HTN (hypertension) Maternal Grandmother No problems noted. Maternal Grandfather Stroke Unknown family medical history Paternal Grandmother No problems noted. Paternal Grandfather Unknown family medical history Brother No problems noted. 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/hazards: No Cognitive needs: No Hearing needs: No Vision needs: Yes Review of Systems Const Denies fatigue, Denies fever(s), Denies night sweats, Denies poor appetite, Reports weight gain and Denies weight loss Eyes Details: glasses Reports requires corrective lenses ENT Reports Normal hearing present, Denies dental pain, Denies dysphagia, Denies hearing loss, Denies mouth pain, Denies odynophagia, Denies throat swelling, Denies tongue swelling and Reports other (Dentition adequate) Card Reports no additional complaints Resp Reports no additional complaints GI Denies abdominal pain, Denies melena, Denies bloating, Denies hematochezia, Denies constipation, Denies GI cramping, Denies dysphagia, Denies excessive flatus, Denies early satiety, Denies heartburn, Reports diarrhea, Reports nausea, Denies odynophagia, Denies vomiting and Denies hematemesis Musc Reports arthralgias and Reports joint swelling Skin/Breast Denies pruritus, Denies lesions, Denies rash and Denies jaundice Neuro Reports Normal hearing present and Denies Abnormal speech present Endo Denies fatigue Aller/Immun Denies throat swelling and Denies tongue swelling Physical Exam Vital Signs: Last Vital Signs Pulse 85 07/21/23 08:08 BP 141/74 H 07/21/23 08:08 BMI result Body Mass Index 37.9 Const General: cooperative, no acute distress, well developed and well groomed Nutritional Appearance: well nourished and obese centrally obese Orientation/consciousness: oriented to person, oriented to place and oriented to time Limitations: No language barrier HEENT Head: Yes normocephalic and Yes atraumatic Eyes General: appearance normal, both eyes and all related structures Pupils: Equal, round and reactive pupils present Neck Neck: Yes normal visual inspection and Yes no lymphadenopathy Thyroid: Thyroid normal Resp Effort & Inspection: normal respiratory effort and able to speak in complete s entences Auscultation: clear to auscultation bilaterally Cardio Rate: regular rate Rhythm: regular rhythm Heart sounds: Normal, physiologic split S2 sound present Peripheral pulses: radial pulses present and posterior tibial pulses present GI Inspection: No distended, No Abdominal panniculus present and Yes obesity Palpation (GI): Soft to palpation, nontender, no guarding, not rigid and No hepatosplenomegaly present Percussion: Yes normal to percussion Auscultation: normal bowel sounds Rectal Exam - Male: Yes deferred Skin Other: New colorful tattoo left upper arm General skin exam: no rashes or lesions noted, turgor normal, skin not dry, no jaundice, No spider nevi and no striae Rashes: no rashes Nails: normal Neuro General: oriented to person, oriented to place and oriented to time Cranial nerves: Yes Equal, round and reactive pupils present and Yes Normal hearing present Speech: No Abnormal speech present Extrem General: Yes normal to inspection, No clubbing, No cyanosis and No edema Psych Appearance: grossly normal and well kempt Mental Status: mental status grossly normal Speech and movement: Normal speech and movement present Affect: normal affect Attitude: cooperative Thought process: Normal thought process present and not confabulating Thought content: Normal thought content present Insight: Good insight present (Psych) Judgement: Good judgement present (Psych) Assessment & Plan Assessment & Plan (1) SALINAS (nonalcoholic steatohepatitis): Comment: BASELINE LABS: 05/2018 liver functions normal, 06/2018 autoimmune workup and hepatitis screening negative, initial alpha fetoprotein 1.1, 2. Elevated bilirubin - R17, Gilbert's syndrome, direct bili is normal CURRENT LABS 12/23/22 Plt Count 183 Total Bilirubin 0.9 AST 40 H ALT 91 H Alkaline Phosphatase 118 H 12/23/22 Fasting Glucose 103 H US OF THE ABD 10/16/22 IMPRESSION: 1. Hepatic steatosis with focal area of fatty sparing near the gallbladder. ? 2. Liver elastography: Median liver stiffness measures 1.82 m/s? which corresponds to cACLD (suggestive). Code(s): K75.81 - Nonalcoholic steatohepatitis (SALINAS) Plan: It was decided that he has psoriatic arthritis and he was started on Otezla. His hands are hurting worse. He does experience diarrhea with the medication, dick because he had a gap in insurance and missed some dosing. He was started on ropinerole for RLS by neurology and now he is sleeping better. He has an upcoming sleep study. He admits he is snacking more r/t s/e of above and has gained some weight. Willing to repeat labs, re ordered. I encouraged him to keep his eye on the long-term goal of controlling his weight as he ages to best protect his liver. I understand he is going through a lot of changes and adjustments with the medications and he is eating more carbs because he finds it is settling to his stomach. We discussed options such as perhaps taking care its with him to snack on to keep some fiber in his stomach to see if this will be helpful. ROV 6 mos. (2) Transaminitis: Code(s): R74.01 - Elevation of levels of liver transaminase levels (3) Gout: Code(s): M10.9 - Gout, unspecified Orders: Orders Ferritin Today R74.01 - Elevation of levels of liver transaminase levels Gamma Glutamyl Transpeptidase Today R74.01 - Elevation of levels of liver transaminase levels Uric Acid Today M10.9 - Gout, unspecified Coding Level of Care Code Est Pt Level 3 (46723) Diagnoses SALINAS (nonalcoholic steatohepatitis) K75.81 Transaminitis R74.01 Gout M10.9
[2023-07-21 08:08] VITALS: BP 141/74; PULSE 85; BMI 37.9
== END 2023-07-21 08:31 | disposition home or self-care (01) ==
PROVIDERS: Visit Provider Nurse Practitioner
DX: K75.81 Nonalcoholic steatohepatitis (NASH) (principal); R74.01 Elevation of levels of liver transaminase levels; M10.9 Gout, unspecified
CPT/HCPCS: 99213

== ENCOUNTER → 2023-07-21 07:55 | Outpatient (BNVA) | payer OTHER, SELFPAY | PROVIDERS: Visit Provider Nurse Practitioner ==

== ENCOUNTER 2023-07-23 11:35 | Outpatient (AMB) | payer OTHER, SELFPAY ==
[2023-07-23 11:37] VITALS: BP 136/72; PULSE 101; TEMP 36.7; O2SAT 97; BMI 37.7
--- NOTE | 2023-07-23 11:37 | MHC.OFFVIS ---
Intake Vital Signs 07/23/23 11:37 Height 6 ft 4 in Weight 309 lb 15.519 oz BMI 37.7 BP 136/72 Blood Pressure Location Rt brachial Position Sitting Pulse 101 H Pulse Source Pulse Oximeter Temp 98.1 F Temp Source Skin Pulse Oximetry (%) 97 Intake Visit Reasons: PsA Intake Note: Pt seen today for PsA follow up. Direct Chill Caster Required: No Accompanied by: Self / Same As Patient Allergies acetaminophen [ACETAMINOPHEN] Allergy (Severe, Verified 07/23/23 11:42) HIVES, SWOLLEN LIPS Sulfa (Sulfonamide Antibiotics) [SULFA (SULFONAMIDE ANTIBIOTICS)] Allergy (Intermediate, Verified 07/23/23 11:42) RASH chlorthalidone Adverse Reaction (Unknown, Verified 07/23/23 11:42) impotence Medication List - Last Reconciled 07/23/23 by Isidra Rivera MD allopurinol 300 mg PO DAILY apremilast (Otezla) 30 mg PO BID ibuprofen 600 mg PO Q6H PRN levocetirizine (Xyzal) 5 mg PO DAILY losartan 100 mg PO DAILY ropinirole ER 2 mg PO BEDTIME tadalafil 10 mg PO DAILY PRN HPI HPI Comments History of Present Illness Details This is a 33-year-old male with psoriatic arthritis who returns for follow-up. Patient took the Otezla consistently for 2 months, then there was a gap in his insurance for about 2 weeks then resumed Otezla. He states that he does not feel any difference with regards to his joint and muscle pain. He mentions however that the Otezla causes GI upset and intermittent diarrhea. Feels about the same otherwise. States that he was recently started on ropinirole for restless leg syndrome which is helping. Initial history: This is a 33-year-old male with past medical history of natural is referred for evaluation of psoriatic arthritis. Patient's father has psoriatic arthritis. Patient states that over the last year he has noticed pain swelling and stiffness of his hands, fingers, wrists, toes. He can no longer wear his ring. He currently has a rubbery ring. States that Aleve provides moderate relief. He also brought paraffin wax machine and using it provides temporary relief. He is unaware of a history of psoriasis. He is on allopurinol prescribed by GI for SALINAS. is not for gout. He states that his fingers change color to pale white and sometimes to red in the cold. He has mid back pain. Sometimes wakes him up from sleep. Improves with adjusting his position. [facility] Medical History Alopecia Annual physical exam Depression Erectile dysfunction HTN (hypertension) Hypersomnia Lower back pain Mid back pain on right side Nocturnal leg cramps Overweight Snoring Vitamin D deficiency Surgical History History of wisdom tooth extraction Family History Father Diverticulitis Arthritis Mother Bipolar disorder HTN (hypertension) Maternal Grandmother No problems noted. Maternal Grandfather Stroke Unknown family medical history Paternal Grandmother No problems noted. Paternal Grandfather Unknown family medical history Brother No problems noted. 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/hazards: No Cognitive needs: No Hearing needs: No Vision needs: Yes Review of Systems GI Reports dyspepsia and Reports diarrhea Musc Reports arthralgias Physical Exam Vital Signs: Last Vital Signs Temp 98.1 F 07/23/23 11:37 Pulse 101 H 07/23/23 11:37 BP 136/72 07/23/23 11:37 Pulse Ox 97 07/23/23 11:37 BMI result Body Mass Index 37.7 Const General: cooperative and healthy appearing Nutritional Appearance: obese morbidly obese Orientation/consciousness: patient oriented x3 Limitations: no limitations HEENT Head: Yes normocephalic and Yes atraumatic Resp Effort & Inspection: normal respiratory effort and able to speak in complete sentences Neuro General: patient oriented x3 Extrem Other: Bilateral wrist pain with full flexion and extension with no tenderness or swelling Right hand diffuse 2nd through 5th MCP tenderness Tender PIPs bilaterally Left hand 4th and 5th MCP tenderness Multiple fibromyalgia tender points No nail pitting Varicose veins both legs Assessment & Plan Assessment & Plan (1) Psoriatic arthritis: Code(s): L40.50 - Arthropathic psoriasis, unspecified Plan: This is a 33-year-old male with psoriatic arthritis who presents for follow-up. Patient took Otezla for the last 2-3 months without much improvement but caused GI upset and intermittent diarrhea. Upon evaluation I do not see any swollen or tender joints. He has multiple fibromyalgia tender points. Labs showed normal inflammatory markers, x-rays are unremarkable. I believe patient's symptoms are likely more attributed to fibromyalgia rather than inflammatory arthritis. Discontinue Otezla. Patient might still develop overt psoriatic arthritis down the road. Will continue to follow him. Discussed management of fibromyalgia with patient. Is a noninflammatory, non-autoimmune central afferent processing disorder leading to a diffuse pain syndrome. Patient follows up regularly with a psychotherapist. I suggested evaluation by psychiatrist. Patient is scheduled for a sleep study evaluate for obstructive sleep apnea. He was evaluated by Neurology and was started on ropinirole for restless leg syndrome. Try to follow sleep hygiene practices. Discuss CBT for sleep with psychotherapist. Patient recently started an exercise program that includes body weight exercises 4 days a week which is helping his symptoms. Advised patient to remain consistent with physical exercise. Follow-up in 9 months Plan I spent 28 minutes reviewing patient's chart, evaluating patient, counseling patient and documenting in the chart Medications: Discontinued apremilast (Otezla) Discontinued Reason: Doctor's Order 30 mg PO BID 60 tabs 2RF Coding Level of Care Code Est Pt Level 4 (41926) Diagnoses Psoriatic arthritis L40.50
== END 2023-07-23 12:06 | disposition home or self-care (01) ==
PROVIDERS: PCP Nurse Practitioner Family; Visit Provider Student in an Organized Health Care Education/Training Program
DX: L40.50 Arthropathic psoriasis, unspecified (principal)
CPT/HCPCS: 99214

== ENCOUNTER → 2023-07-23 11:35 | Outpatient (BNVA) | payer OTHER, SELFPAY | PROVIDERS: Visit Provider Student in an Organized Health Care Education/Training Program ==

== ENCOUNTER 2023-07-27 08:53 | Outpatient (AMB) | payer OTHER, SELFPAY ==
[2023-07-27 09:09] VITALS: BMI 38.0
--- NOTE | 2023-07-27 09:09 | A.OFFVIS_ITS ---
Intake VS Expanded 07/27/23 09:09 Height 6 ft 4 in Weight 311 lb 15.265 oz BMI 38.0 Intake Visit Reasons: Obesity Allergies acetaminophen [ACETAMINOPHEN] Allergy (Severe, Verified 07/23/23 11:42) HIVES, SWOLLEN LIPS Sulfa (Sulfonamide Antibiotics) [SULFA (SULFONAMIDE ANTIBIOTICS)] Allergy (Intermediate, Verified 07/23/23 11:42) RASH chlorthalidone Adverse Reaction (Unknown, Verified 07/23/23 11:42) impotence HPI Nutrition Presentation Details Pt presents for MNT for obesity. Pt has hx of psoriatic arthritis, see radio mechanic. Pt reports working on reducing on processed meats. Today will review reducing foods that can increase inflammation Most Recent Diabetes Results: Creatinine 1.05 mg/dL (0.5-1.4) 03/17/23 Blood Urea Nitrogen 14 mg/dL (9-16) 03/17/23 Sodium 140 mmol/L (135-145) 03/17/23 Potassium 4.1 mmol/L (3.3-5.1) 03/17/23 Chloride 106 mmol/L (96-108) 03/17/23 Carbon Dioxide 26 mmol/L (22-29) 03/17/23 Calcium 9.2 mg/dL (8.4-10.2) 03/17/23 AST 22 U/L (5-37) 03/17/23 ALT 58 U/L (0-40) H 03/17/23 Total Protein 6.5 g/dL (6.5-8.0) 03/17/23 Albumin 4.3 g/dL (3.5-5.0) 03/17/23 [facility] Medical History Alopecia Annual physical exam Depression Erectile dysfunction HTN (hypertension) Hypersomnia Lower back pain Mid back pain on right side Nocturnal leg cramps Overweight Snoring Vitamin D deficiency Surgical History History of wisdom tooth extraction Family History Father Diverticulitis Arthritis Mother Bipolar disorder HTN (hypertension) Maternal Grandmother No problems noted. Maternal Grandfather Stroke Unknown family medical history Paternal Grandmother No problems noted. Paternal Grandfather Unknown family medical history Brother No problems noted. 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 Pt's set goal (Date: 05/20/22 ): reduce calories by 500 per day (from high fat foods and reducing portion of starches in the evening) at follow up (Date:03/02/23 ): Per Pt met 100% (reports calories range from 0509-5426 as per recorded on phone rasta) Used wt : 140 kg Est kcal as per MSJ: 2927-500 = 2427 (40% carb, 30% fat/prot) Est fluid needs: 3500 ml/d (25 ml/kg bw) Rec fiber: increase to 8-10 g per day and gradually increase to 35 g or as tolerated Rec Na: < 2000 mg /d Educate patient on: (R= Reviewed, V = verbalizes understanding N/R= Needs review N/A= not applicable) * Food sources of carbohydrates and serving adequate serving sizes : R V * Difference between complex carbohydrates and simple carbohydrates, role of fiber: R V * Differences between fats (MUFA/PUFA/saturated fats, trans fats) and food sources of various fats: V * Food sources of sodium and salt and healthy modifications for heart health and kidney health: N/R * Vitamins and minerals: N/R * How to interpret food labels: R V * Healthy Plate method concept: R V * Physical activity: benefits and precaution: R V * REVIEWED: measuring food portions, reducing calories from empty calorie foods (those higher in fat/sugars) * Discuss following gluten free diet and reducing food coloring to lessen inflammation Patient Instructions: Continue working on choosing low fat choices, reduce foods with artificial colors, re try gluten free meal planing -see ideas keep with physical activity as tolerated goal 150 min per week keep hydrated by having water with meals/snacks Coding Level of Care Code Nutr Indiv Subseq (61544) Diagnoses Obesity (BMI 30-39.9) E66.9 Time Spent (min) 30
== END 2023-07-27 09:35 | disposition home or self-care (01) ==
PROVIDERS: PCP Nurse Practitioner Family; Visit Provider Dietitian, Registered
DX: E66.9 Obesity, unspecified (principal)

== ENCOUNTER → 2023-07-27 13:01 | Outpatient (REF) | payer OTHER, SELFPAY | LOC: HO.SL 13:01 | PROVIDERS: PCP Nurse Practitioner Family; Visit Provider Psychiatry & Neurology Neurology | DX: G47.10 Hypersomnia, unspecified (principal); G47.62 Sleep related leg cramps; G62.9 Polyneuropathy, unspecified; R06.83 Snoring; E66.9 Obesity, unspecified; Z13.6 Encounter for screening for cardiovascular disorders | CPT/HCPCS: 95806; 97803 ==

== ENCOUNTER → 2023-07-27 13:19 | Outpatient (BNV) | payer OTHER, SELFPAY | PROVIDERS: PCP Nurse Practitioner Family; Visit Provider Psychiatry & Neurology Neurology | DX: R06.83 Snoring (principal) | CPT/HCPCS: 95806 ==

== ENCOUNTER 2023-07-31 08:02 | Outpatient (REF) | payer OTHER, SELFPAY ==
[2023-07-31 12:25] LABS: Ferritin 61 ng/mL (20-250); Gamma Glutamyl Transpeptidase 74 U/L (11-51); Uric Acid 4.4 mg/dL (3.4-7.0)
== END 2023-07-31 08:03 | disposition home or self-care (01) ==
LOC: HO.HMGCLDS 08:02
PROVIDERS: PCP Nurse Practitioner Family; Visit Provider Nurse Practitioner
DX: R74.01 Elevation of levels of liver transaminase levels (principal); M10.9 Gout, unspecified
CPT/HCPCS: 36415; 82728; 82977; 84550

== ENCOUNTER → 2023-08-21 19:30 | Outpatient (REF) | payer OTHER, SELFPAY | LOC: HO.SL 19:30 | PROVIDERS: PCP Nurse Practitioner Family; Visit Provider Psychiatry & Neurology Neurology | DX: G47.33 Obstructive sleep apnea (adult) (pediatric) (principal); G47.10 Hypersomnia, unspecified; R06.83 Snoring | CPT/HCPCS: 95810 ==

== ENCOUNTER → 2023-08-21 21:57 | Outpatient (BNV) | payer OTHER, SELFPAY | PROVIDERS: PCP Nurse Practitioner Family; Visit Provider Psychiatry & Neurology Neurology | DX: R06.83 Snoring (principal) | CPT/HCPCS: 95810 ==

== ENCOUNTER 2023-12-02 08:57 | Outpatient (AMB) | payer OTHER, SELFPAY ==
--- NOTE | 2023-12-02 09:07 | MHC.OFFVIS ---
Intake Vital Signs 12/02/23 09:08 Height 6 ft 4 in Weight 319 lb 8 oz BMI 38.9 BP 138/88 Blood Pressure Location Lt brachial Position Sitting Respiration 17 Pulse 105 H Pulse Source Pulse Oximeter Pulse Oximetry (%) 98 Oxygen Delivery Method Room Air Intake Visit Reasons: 4m follow up Polyneuropathy-Confirmed Intake Note: Pt presents for 4 month follow up polyneuropathy. Slide Machine Tender Required: No Allergies acetaminophen [ACETAMINOPHEN] Allergy (Severe, Verified 12/02/23 09:08) HIVES, SWOLLEN LIPS Sulfa (Sulfonamide Antibiotics) [SULFA (SULFONAMIDE ANTIBIOTICS)] Allergy (Intermediate, Verified 12/02/23 09:08) RASH chlorthalidone Adverse Reaction (Unknown, Verified 12/02/23 09:08) impotence Medication List - Last Reconciled 12/02/23 by Tanika Burkett MD allopurinol 300 mg PO DAILY ibuprofen 600 mg PO Q6H PRN levocetirizine (Xyzal) 5 mg PO DAILY losartan 100 mg PO DAILY ropinirole ER 2 mg PO BEDTIME tadalafil 10 mg PO DAILY PRN HPI HPI Comments History of Present Illness Details 33y/o male comes for follow up . He is doing well on ropinirole XR 2mg qhs He had a sleep study which was c/w sleep apnea AHI 9 REM AHI 30 O2 etta 81%.He is on AUtoPAP 5-20 cm and is having difficulty using it . He is using nasal pillows as he has a cornejo and the full face or nasal mask lange snot fit right. He feels it is hard to exhale and wakes up a lot. [facility] Medical History (Updated 12/02/23 @ 09:24 by Tanika Burkett MD) ELINA on CPAP Nocturnal leg cramps Hypersomnia Snoring Mid back pain on right side Lower back pain Erectile dysfunction Overweight Alopecia Annual physical exam HTN (hypertension) Vitamin D deficiency Depression Surgical History History of wisdom tooth extraction Family History Father Diverticulitis Arthritis Mother Bipolar disorder HTN (hypertension) Maternal Grandmother No problems noted. Maternal Grandfather Stroke Unknown family medical history Paternal Grandmother No problems noted. Paternal Grandfather Unknown family medical history Brother No problems noted. 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/hazards: No Cognitive needs: No Hearing needs: No Vision needs: Yes Questionnaire Restless Legs Rating Scale Overall, how would you rate the RLS discomfort in your legs or arms?: Moderate Overall, how would you rate the need to move around because of your RLS symptoms?: Moderate Overall, how much relief of your RLS arm or leg discomfort do you get from moving around?: Moderate Relief Overall, how severe is your sleep disturbance from your RLS symptoms?: Moderate How severe is your tiredness or sleepiness from your RLS symptoms?: Moderate Overall, how severe is your RLS as a whole?: Moderate How often do you get RLS symptoms?: Severe (This means 4 to 5 days a week.) When you have RLS symptoms, how severe are they on an average day?: Moderate (This means 1 to 3 hour per 24 hour day.) Overall, how severe is the impact of your RLS symptoms on your ability to carry out your daily affairs, for example carrying out a satisfactory family, home, social, school, or work life?: Moderate How severe is your mood disturbance from your RLS symptoms-for example angry, depressed, sad, anxious, or irritable?: None Total Score: 19 Rate your symptoms severity for the preceding week overall.: Mild Physical Exam Vital Signs: Last Vital Signs Pulse 105 H 12/02/23 09:08 Resp 17 12/02/23 09:08 BP 138/88 12/02/23 09:08 Pulse Ox 98 12/02/23 09:08 Oxygen Delivery Method Room Air 12/02/23 09:08 BMI result Body Mass Index 38.9 Const General: cooperative and healthy appearing Nutritional Appearance: obese morbidly obese Orientation/consciousness: oriented to person and patient oriented x3 Limitations: no limitations HEENT Head: Yes normocephalic and Yes atraumatic Neuro General: oriented to person, patient oriented x3, gait normal, moves all extremities and no focal motor deficits Assessment & Plan Assessment & Plan (1) Restless legs syndrome (RLS): Code(s): G25.81 - Restless legs syndrome (2) ELINA on CPAP: Code(s): G47.33 - Obstructive sleep apnea (adult) (pediatric) Plan Continue ropinirole XR 2mg qhs I will trial him on gabapentin 300mg qhs to help with RLS and arousals Medications: New gabapentin 300 mg PO BEDTIME 30 caps 6RF Coding Level of Care Code Est Pt Level 4 (73816) Diagnoses Restless legs syndrome (RLS) G25.81 ELINA on CPAP G47.33
[2023-12-02 09:08] VITALS: BP 138/88; PULSE 105; RESP 17; O2SAT 98; BMI 38.9
== END 2023-12-02 09:29 | disposition home or self-care (01) ==
PROVIDERS: PCP Nurse Practitioner Family; Visit Provider Psychiatry & Neurology Neurology
DX: G25.81 Restless legs syndrome (principal); G47.33 Obstructive sleep apnea (adult) (pediatric)
CPT/HCPCS: 99214

== ENCOUNTER → 2023-12-02 08:57 | Outpatient (BNVA) | payer OTHER, SELFPAY | PROVIDERS: PCP Nurse Practitioner Family; Visit Provider Psychiatry & Neurology Neurology | DX: G62.9 Polyneuropathy, unspecified (principal); R06.83 Snoring; G47.10 Hypersomnia, unspecified; G47.62 Sleep related leg cramps ==

== ENCOUNTER 2023-12-23 07:51 | Outpatient (REF) | payer OTHER, SELFPAY ==
[2023-12-23 11:15] LABS: MANUAL DIFF FLAG NO
[2023-12-23 11:17] LABS: Appearance Urine Clear; Color Urine Yellow; Glucose Urine UA Negative (Negative); Leukocyte Esterase Urine Negative (Negative); Nitrite Urine Negative (Negative); PH 5.5 (5.0-9.0); Specific Gravity - Urine 1.015 (1.005-1.025); Urine Blood Negative (Negative); Urine Ketones Negative (Negative); Urine Protein Negative (Neg-Trace)
[2023-12-23 11:27] LABS: Basophils Percent Auto 0.1 % (0-2); Eosinophils Absolute Auto 0.1 X10*3/uL (0.0-0.4); Eosinophils Percent Auto 1.5 % (0-4); Hematocrit 48.6 % (42.0-52.0); Hemoglobin 17.1 g/dl (14.0-18.0); Imm Gran Abs Auto 0.03 X10*3/uL (0.00-0.03); Imm Gran Pct Auto 0.4 % (0.0-0.4); Lymphocytes Absolute Auto 2.6 X10*3/uL (1.2-4.9); Lymphocytes Percent Auto 33.7 % (20-40); Mean Corpuscular HGB Conc 35.2 g/dl (31.0-36.0); Mean Corpuscular Hemoglobin 30.5 pg (27.0-33.0); Mean Corpuscular Volume 86.6 fL (80.0-98.0); Mean Platelet Volume 11.5 fL (9.4-12.4); Monocytes Absolute Auto 0.5 X10*3/uL (0.1-1.2); Monocytes Percent Auto 6.6 % (2-11); Neutrophils Absolute Auto 4.5 x10*3/uL (2.0-8.3); Neutrophils Percent Auto 57.7 % (45-73); Platelet Count 186 X10*3/uL (160-400); Red Blood Count 5.61 X10*6/uL (4.60-5.80); Red Cell Distribution Width 13.1 % (11.0-16.0); White Blood Count 7.8 X10*3/uL (4.8-10.8)
[2023-12-23 12:09] LABS: Alanine Aminotransferase 133 U/L (0-40); Albumin Level 4.2 g/dL (3.5-5.0); Alkaline Phosphatase 112 U/L (39-117); Anion Gap 10 (12-20); Aspartate Amino Transferase 60 U/L (5-37); Bilirubin Total 0.9 mg/dL (0.0-1.0); Blood Urea Nitrogen 20 mg/dL (9-16); Calcium 9.6 mg/dL (8.4-10.2); Carbon Dioxide 27 mmol/L (22-29); Chloride 103 mmol/L (96-108); Cholesterol 142 mg/dL (<200); Estimated Glomerular Filt Rate > 60; Glucose Fasting 107 mg/dL (60-99); HDL Cholesterol 38 mg/dL (>40); LDL Cholesterol Calculated 77 mg/dL (<100); Potassium 4.3 mmol/L (3.3-5.1); Sodium 136 mmol/L (135-145); Total Protein 6.8 g/dL (6.5-8.0); Triglycerides 138 mg/dL (<150)
[2023-12-23 12:28] LABS: TSH reflex Free T4 2.42 uIU/mL (0.32-4.0)
== END 2023-12-23 07:52 | disposition home or self-care (01) ==
LOC: HO.HMGCLDS 07:51
PROVIDERS: PCP Nurse Practitioner Family; Visit Provider Nurse Practitioner Family
DX: I10 Essential (primary) hypertension (principal); E79.0 Hyperuricemia without signs of inflammatory arthritis and tophaceous disease
CPT/HCPCS: 36415; 80053; 80061; 81003; 84443; 85025

== ENCOUNTER 2023-12-30 07:56 | Outpatient (AMB) | payer OTHER, SELFPAY ==
[2023-12-30 08:01] VITALS: BP 130/88; PULSE 85; O2SAT 98; BMI 39.0
--- NOTE | 2023-12-30 08:01 | MHC.PC.OV ---
Vital Signs 12/30/23 08:01 Height 6 ft 4 in Weight 320 lb 8 oz BMI 39.0 BP 130/88 Blood Pressure Location Lt brachial Position Sitting Pulse 85 Pulse Source Pulse Oximeter Pulse Oximetry (%) 98 Oxygen Delivery Method Room Air Intake Visit Reasons: PE Intake Note: Pt is here for his Annual PE Allergies acetaminophen [ACETAMINOPHEN] Allergy (Severe, Verified 12/30/23 08:04) HIVES, SWOLLEN LIPS Sulfa (Sulfonamide Antibiotics) [SULFA (SULFONAMIDE ANTIBIOTICS)] Allergy (Intermediate, Verified 12/30/23 08:04) RASH chlorthalidone Adverse Reaction (Unknown, Verified 12/30/23 08:04) impotence Tobacco use date assessed: 12/30/23 Dental Screening Dental Screen Date: 12/30/23 Did you have a dental visit in the last 12 months?: Yes Did you have a dental problem in the last 6 months where you did not have access to dental care?: No Was dental information given to patient?: Patient has dentist HPI PE HPI Details Pt is here for a PE. Will order labs. pt uses a CPAP. pt follows up with gastro as well. ED reported, will check T levels and refer to urology. [facility], [facility] Medical History ELINA on CPAP Nocturnal leg cramps Hypersomnia Snoring Mid back pain on right side Lower back pain Erectile dysfunction Overweight Alopecia Annual physical exam HTN (hypertension) Vitamin D deficiency Depression Surgical History History of wisdom tooth extraction Family History Father Diverticulitis Arthritis Mother Bipolar disorder HTN (hypertension) Maternal Grandmother No problems noted. Maternal Grandfather Stroke Unknown family medical history Paternal Grandmother No problems noted. Paternal Grandfather Unknown family medical history Brother No problems noted. Maternal Aunt Multiple sclerosis Social History Housing: House Alcohol intake: current Alcohol intake frequency: a few times a week Patient Tobacco Use Status: Never used Tobacco e-Cigarette/Vaping Use: Never Used service: No Current occupational status: employed Current occupation: Current occupational exposures/hazards: No Cognitive needs: No Hearing needs: No Vision needs: Yes Questionnaire PHQ-9 Over the last 2 weeks, how often have you been bothered by any of the following problems? 1. Little interest or pleasure in doing things: several days 2. Feeling down, depressed, or hopeless: several days 3. Trouble falling or staying asleep, or sleeping too much: nearly every day 4. Feeling tired or having little energy: nearly every day 5. Poor appetite or overeating: several days 6. Feeling bad about yourself - or that you are a failure or have let yourself or your family down: several days 7. Trouble concentrating on things, such as reading the newspaper or watching television: more than half the days 8. Moving or speaking so slowly that other people could have noticed. Or the opposite - being so fidgety or restless that you have been moving around a lot more than usual: not at all 9. Thoughts that you would be better off or of hurting yourself in some way: not at all Total score: 12 Depression Screening Interpretation: Positive (pt has a therapist) Depression Screening Follow-up: Existing condition and In treatment Depression Screening Done: Yes 04382 - PHQ-9 Billing: Yes Source: Developed by Drs. Seamus Dickerson, Tiana Balbuena, Aki Prater and colleagues, with an educational perico from [employer]. Thrive Questionnaire Date Thrive assessed: 12/30/23 I am a: Patient What is your living situation today?: I have a steady place to live Within the past 12 months, did the food you bought not last and you didn't have the money to get more?: Never true Within the past 12 months, did you worry whether your food would run out before you got money to buy more?: Never true Do you have trouble getting transportation to medical appointments?: No Do you have trouble paying your heating and electricity bill?: No Do you have trouble taking care of your child, family member or friend?: No Do you have trouble with day-to-day activities such as bathing, preparing meals, shopping, managing finances, etc.?: No Are you currently unemployed and looking for a job?: No Are you interested in more education?: No Currently or been in a relationship where the following occur: no concerns reported THRIVE Score: 0 AUDIT C Alcohol Use Questionnaire (AUDIT-C) 1. How often do you have a drink containing alcohol?: 2-4 times a month 2. How many drinks containing alcohol do you have on a typical day when you are drinking?: 1 or 2 3. How often do you have six or more drinks on one occasion?: Never Total Score: 2 Score Reviewed/Action Taken: Yes RANDY-7 AMB Questionnaire RANDY-7 Date RANDY - 7 assessed: 12/30/23 Feeling nervous, anxious, or on edge: 1 = Several days Not being able to stop or control worryin = Not at all Worrying too much about different things: 1 = Several days Trouble relaxin = More than half the days Being so restless that it is hard to sit still: 1 = Several days Becoming easily annoyed or irritable: 0 = Not at all Feeling afraid as if something awful might happen: 0 = Not at all Total RANDY-7 score (0-4 normal; 5-9 mild; 10-14 moderate; 15-21 severe): 5 Source: Developed by Drs. Seamus Dickerson, Tiana Balbuena, Aki Prater and colleagues, with an educational perico from [employer]. RANDY-7 Assessment Billing RANDY-7 Assessment Tool: RANDY-7 Assessment 25144 Review of Systems Const Denies chills and Denies fever(s) Eyes Denies blurry vision ENT Denies vertigo, Denies dizziness and Denies sore throat Card Denies chest pain at rest, Denies chest pain with activity, Denies diaphoresis, Denies dyspnea and Denies dyspnea on exertion Resp Denies cough, Denies dyspnea, Denies dyspnea on exertion and Denies wheezing GI Denies abdominal pain, Denies melena, Denies hematochezia, Denies constipation, Denies diarrhea and Denies loose stools Denies hematuria Musc Denies numbness and Denies tingling Skin/Breast Denies lesions Neuro Denies vertigo, Denies dizziness, Denies numbness and Denies tingling Psych Denies anxiety, Denies depression, Denies homicidal ideation, Denies suicidal ideation and Denies other (substance abuse) Aller/Immun Denies wheezing Physical exam (Primary Care) Vital Signs: Last Vital Signs Pulse 85 01/31/24 08:01 BP 130/88 12/30/23 08:01 Pulse Ox 98 12/30/23 08:01 Oxygen Delivery Method Room Air 12/30/23 08:01 BMI result Body Mass Index 39.0 Tobacco/Smoking Status: Tobacco use Status Tobacco use date assessed 12/30/23 12/30/23 08:07 Patient Tobacco Use Status Never used Tobacco 12/30/23 08:07 e-Cigarette/Vaping Use Never Used 12/30/23 08:07 PHQ-9: PHQ-9 Score PHQ-9: Total score 12 12/30/23 08:12 Depression Screening Interpretation: Positive (pt has a therapist) Depression Screening Follow-up: Existing condition and In treatment Thrive Assessment: Date of Thrive Assessment Date Thrive assessed 12/30/23 12/30/23 08:09 Currently or been in a relationship where the following occur: no concerns reported Const General: cooperative Nutritional Appearance: obese Orientation/consciousness: patient oriented x3 HENMT Head: Yes normal to inspection, Yes normocephalic and Yes atraumatic Ears: TM's normal bilaterally Eyes General: appearance normal, both eyes and all related structures Alignment and Position: alignment normal and position normal Neck Neck: Yes normal visual inspection and Yes no lymphadenopathy Thyroid: Thyroid normal Resp Effort & Inspection: normal respiratory effort Auscultation: clear to auscultation bilaterally Cardio Rate: regular rate Rhythm: regular rhythm Heart sounds: S1 normal heart sound present, S2 normal heart sound present and no murmurs GI Palpation (GI): Soft to palpation and nontender Auscultation: normal bowel sounds Male General Exam: Yes normal external exam Penis: normal penis Scrotum: scrotum normal, testes descended bilaterally and no inguinal hernias Testes: no testicular mass Skin Other: left lower extrem varicose veins noted Rashes: no rashes Neuro General: patient oriented x3, moves all extremities, no focal motor deficits and deep tendon reflexes 2+ bilaterally Romberg Test: Negative Psych Appearance: grossly normal Mental Status: mental status grossly normal Speech and movement: Normal speech and movement present Affect: normal affect Attitude: cooperative Thought process: Normal thought process present Thought content: Normal thought content present Insight: Good insight present (Psych) Judgement: Good judgement present (Psych) Assessment and Plan Assessment & Plan (1) Annual physical exam: Code(s): Z00.00 - Encounter for general adult medical examination without abnormal findings Plan: Labs ordered (2) Erectile dysfunction: Code(s): N52.9 - Male erectile dysfunction, unspecified Plan: Checking T levels, referred to urology Plan The patient agreed to the use of a durable medical equipment technician for this encounter. Scribed for KENYETTA Paris- by Anika Leiva durable medical equipment technician, on 12/30/2023 at 08:15 EST. Orders: Orders UA CC w/rflx Micro + Cult Today Z00.00 - Encounter for general adult medical examination without abnormal findings Lutenizing Hormone Today N52.9 - Male erectile dysfunction, unspecified Follicle Stimulating Hormone Today N52.9 - Male erectile dysfunction, unspecified Complete Blood Count Auto Diff Today Z00.00 - Encounter for general adult medical examination without abnormal findings Comprehensive [place]. Panel Fast Today Z00.00 - Encounter for general adult medical examination without abnormal findings TSH reflex Free T4 Today Z00.00 - Encounter for general adult medical examination without abnormal findings Lipid Panel Today Z00.00 - Encounter for general adult medical examination without abnormal findings Testosterone, Free/Total Today N52.9 - Male erectile dysfunction, unspecified Referrals Urology Referral N52.9 - Male erectile dysfunction, unspecified Coding Level of Care Code Est Pt Prev Care 18-39y(82702) Diagnoses Annual physical exam Z00.00 Erectile dysfunction N52.9 Additional Codes RANDY-7 Assessment Billing - RANDY-7 Assessment Tool: RANDY-7 Assessment 58013 ([id number])
== END 2023-12-30 08:29 | disposition home or self-care (01) ==
PROVIDERS: Visit Provider Nurse Practitioner Family
DX: Z00.00 Encounter for general adult medical examination without abnormal findings (principal); N52.9 Male erectile dysfunction, unspecified
CPT/HCPCS: 99395

== ENCOUNTER 2024-01-28 13:00 | Outpatient (AMB) | payer OTHER, SELFPAY ==
--- NOTE | 2024-01-28 13:02 | A.OFFVIS_ITS ---
Intake Vital Signs 01/28/24 13:07 Height 6 ft 4 in Weight 315 lb BMI 38.3 BP 137/82 Blood Pressure Location Lt brachial Position Sitting Pulse 98 Intake Visit Reasons: 6 month follow up Intake Note: Cheko presents in the office as a 6 month follow up. CC: He states that he is feeling good and not having any concerns just to go over lab results. Public Health Teacher Required: No Allergies acetaminophen [ACETAMINOPHEN] Allergy (Severe, Verified 01/28/24 13:07) HIVES, SWOLLEN LIPS Sulfa (Sulfonamide Antibiotics) [SULFA (SULFONAMIDE ANTIBIOTICS)] Allergy (Intermediate, Verified 01/28/24 13:07) RASH chlorthalidone Adverse Reaction (Unknown, Verified 01/28/24 13:07) impotence HPI 6 month follow up HPI Details Assessment & Plan (1) SALINAS (nonalcoholic steatohepatitis): Comment: BASELINE LABS: 05/2018 liver functions normal, 06/2018 autoimmune workup and hepatitis screening negative, initial alpha fetoprotein 1.1, 2. Elevated bilirubin - R17, Gilbert's s yndrome, direct bili is normal CURRENT LABS 12/23/22 Plt Count 183 Total Bilirubin 0.9 AST 40 H ALT 91 H Alkaline Phosphatase 118 H 12/23/22 Fasting Glucose 103 H US OF THE ABD 10/16/22 IMPRESSION: 1. Hepatic steatosis with focal area of fatty sparing near the gallbladder. ? 2. Liver elastography: Median liver stif fness measures 1.82 m/s? which corresponds to cACLD (suggestive). Code(s): K75.81 - Nonalcoholic steatohepatitis (SALINAS) Plan: It was decided that he has psoriatic arthritis and he was started on Otezla. His hands are hurting worse. He does experience diarrhea with the medication, dick because he had a gap in insurance and missed some dosing. He was started on ropinerole for RLS by neurology and now he is sleeping better. [facility]. He admits he is snacking more r/t s/e of above and has gained some weight. Willing to repeat labs, re ordered. I encouraged him to keep his eye on the long-term goal of controlling his weight as he ages to best protect his liver. I understand he is going through a lot of changes and adjustments with the medications and he is eating more carbs because he finds it is settling to his stomach. We discussed options such as perhaps taking care its with him to snack on to keep some fiber in his stomach to see if this will be helpful. ROV 6 mos. (2) Transaminitis: Code(s): R74.01 - Elevation of levels of liver transaminase levels (3) Gout: Code(s): M10.9 - Gout, unspecified Orders: Orders Ferritin Today R74.01 - Elevation of levels of live r transaminase lev els Gamma Glutamyl Tra nspeptidase Today R74.01 - Elevation of levels of live r transaminase lev els Uric Acid Today M10.9 - Gout, unsp ecified LABS: Laboratory Tests 07/31/23 12/23/23 08:08 07:55 Ferritin 61 Total Bilirubin 0.9 GGT 74 H AST 60 H ALT 133 H Alkaline Phosphata se 112 TSH 2.42 Laboratory Tests 07/31/23 08:08 Uric Acid 4.4 TODAY'S VISIT He is avoiding gluten as this seem to be helping his joints. His wt has been stable after a period of gain, and this despite dieting which has been frustrating for him. Trans are up from last measure, but GGT trending down. Ferritin is normal, so doubt hemachromatosis. His TSH is creeping up, so this may bear watching. Him mother had thyroid disease. He continues to struggle to lose weight. He now is experimenting with CPAP, but he seems to wake up with if off and does not remember taking it off. He has had an improvement in sleep with the ropinerol for RLS. He continues on alopurinol. Ordering US as this is overdue. ROV 6 mos. [facility] Medical History ELINA on CPAP Nocturnal leg cramps Hypersomnia Snoring Mid back pain on right side Lower back pain Erectile dysfunction Overweight Alopecia Annual physical exam HTN (hypertension) Vitamin D deficiency Depression Surgical History History of wisdom tooth extraction Family History Father Diverticulitis Arthritis Mother Bipolar disorder HTN (hypertension) Maternal Grandmother No problems noted. Maternal Grandfather Stroke Unknown family medical history Paternal Grandmother No problems noted. Paternal Grandfather Unknown family medical history Brother No problems noted. 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/hazards: No Cognitive needs: No Hearing needs: No Vision needs: Yes Review of Systems Const Denies fatigue, Denies fever(s), Denies night sweats, Denies poor appetite and Denies weight loss Eyes Details: glasses Reports requires corrective lenses ENT Reports Normal hearing present, Denies dental pain, Denies dysphagia, Denies hearing loss, Denies mouth pain, Denies odynophagia, Denies throat swelling, Denies tongue swelling and Reports other (Dentition adequate) Card Reports no additional complaints Resp Reports no additional complaints GI Details: Denies abdominal pain, Denies melena, Denies bloating, Denies hematochezia, Denies constipation, Denies GI cramping, Denies dysphagia, Denies excessive flatus, Denies early satiety, Denies heartburn, Denies diarrhea, Denies nausea, Denies odynophagia, Denies vomiting and Denies hematemesis Skin/Breast Denies pruritus, Denies lesions, Denies rash and Denies jaundice Neuro Reports Normal hearing present and Denies Abnormal speech present Endo Denies fatigue Aller/Immun Denies throat swelling and Denies tongue swelling Physical Exam Vital Signs: Last Vital Signs Pulse 98 01/28/24 13:07 BP 137/82 01/28/24 13:07 BMI result Body Mass Index 38.3 Const General: cooperative, no acute distress, well developed and well groomed Nutritional Appearance: well nourished and obese Orientation/consciousness: oriented to person, oriented to place and oriented to time Limitations: No language barrier HEENT Head: Yes normocephalic and Yes atraumatic Eyes General: appearance normal, both eyes and all related structures Pupils: Equal, round and reactive pupils present Neck Neck: Yes normal visual inspection and Yes no lymphadenopathy Thyroid: Thyroid normal Resp Effort & Inspection: normal respiratory effort and able to speak in complete sentences Auscultation: clear to auscultation bilaterally Cardio Rate: regular rate Rhythm: regular rhythm Heart sounds: Normal, physiologic split S2 sound present Peripheral pulses: radial pulses present and posterior tibial pulses present GI Inspection: No distended, No Abdominal panniculus present and Yes obesity Palpation (GI): Soft to palpation, nontender, no guarding, not rigid and No hepatosplenomegaly present Percussion: Yes normal to percussion Auscultation: normal bowel sounds Rectal Exam - Male: Yes deferred Skin General skin exam: no rashes or lesions noted, turgor normal, skin not dry, no jaundice, No spider nevi and no striae Rashes: no rashes Nails: normal Neuro General: oriented to person, oriented to place and oriented to time Cranial nerves: Yes Equal, round and reactive pupils present and Yes Normal hearing present Speech: No Abnormal speech present Extrem General: Yes normal to inspection, No clubbing, No cyanosis and No edema Psych Appearance: grossly normal and well kempt Mental Status: mental status grossly normal Speech and movement: Normal speech and movement present Affect: normal affect Attitude: cooperative Thought process: Normal thought process present and not confabulating Thought content: Normal thought content present Insight: Good insight present (Psych) Judgement: Good judgement present (Psych) Assessment & Plan Assessment & Plan (1) Gout: Code(s): M10.9 - Gout, unspecified (2) SALINAS (nonalcoholic steatohepatitis): Comment: BASELINE LABS: 05/2018 liver functions normal, 06/2018 autoimmune workup and hepatitis screening negative, initial alpha fetoprotein 1.1, 2. Elevated bilirubin - R17, Gilbert's syndrome, direct bili is normal CURRENT LABS 12/23/22 Plt Count 183 Total Bilirubin 0.9 AST 40 H ALT 91 H Alkaline Phosphatase 118 H 12/23/22 Fasting Glucose 103 H US OF THE ABD 10/16/22 IMPRESSION: 1. Hepatic steatosis with focal area of fatty sparing near the gallbladder. ? 2. Liver elastography: Median liver stiffness measures 1.82 m/s? which corresponds to cACLD (suggestive). Code(s): K75.81 - Nonalcoholic steatohepatitis (SALINAS) Plan He is avoiding gluten as this seem to be helping his joints. His wt has been stable after a period of gain, and this despite dieting which has been frustrating for him. Trans are up from last measure, but GGT trending down. Ferritin is normal, so doubt hemachromatosis. His TSH is creeping up, so this may bear watching. Him mother had thyroid disease. He continues to struggle to lose weight. He now is experimenting with CPAP, but he seems to wake up with if off and does not remember taking it off. He has had an improvement in sleep with the ropinerol for RLS. He continues on alopurinol. Ordering US as this is overdue. ROV 6 mos. Orders: Orders US abdomen complete Today K75.81 - Nonalcoholic steatohepatitis (SALINAS) Coding Level of Care Code Est Pt Level 3 (01152) Diagnoses Gout M10.9 SALINAS (nonalcoholic steatohepatitis) K75.81
[2024-01-28 13:07] VITALS: BP 137/82; PULSE 98; BMI 38.3
== END 2024-01-28 13:41 | disposition home or self-care (01) ==
PROVIDERS: PCP Nurse Practitioner Family; Visit Provider Nurse Practitioner
DX: M10.9 Gout, unspecified (principal); K75.81 Nonalcoholic steatohepatitis (NASH)
CPT/HCPCS: 99213

== ENCOUNTER → 2024-01-28 13:00 | Outpatient (BNVA) | payer OTHER, SELFPAY | PROVIDERS: PCP Nurse Practitioner Family; Visit Provider Nurse Practitioner | DX: E66.9 Obesity, unspecified (principal); Z68.39 Body mass index [BMI] 39.0-39.9, adult; Z71.3 Dietary counseling and surveillance; M10.9 Gout, unspecified; K75.81 Nonalcoholic steatohepatitis (NASH) | CPT/HCPCS: 97803 ==

== ENCOUNTER 2024-01-28 13:45 | Outpatient (AMB) | payer OTHER, SELFPAY ==
[2024-01-28 13:59] VITALS: BMI 39.5
--- NOTE | 2024-01-28 13:59 | A.OFFVIS_ITS ---
Intake VS Expanded 01/28/24 13:59 Height 6 ft 4 in Weight 324 lb 8.327 oz BMI 39.5 Intake Visit Reasons: Obesity Allergies acetaminophen [ACETAMINOPHEN] Allergy (Severe, Verified 01/28/24 13:07) HIVES, SWOLLEN LIPS Sulfa (Sulfonamide Antibiotics) [SULFA (SULFONAMIDE ANTIBIOTICS)] Allergy (Intermediate, Verified 01/28/24 13:07) RASH chlorthalidone Adverse Reaction (Unknown, Verified 01/28/24 13:07) impotence HPI Nutrition Presentation Details Pt presents for MNT for obesity. Pt has hx of SALINAS, IFG Pt reports choosing gluten free foods related to inflammation and reports noticing improvement, not following gluten free diet 100% of the time but reports noticing improvements thus far. Pt also reports keeping track of calories but not losing weight and become frustrated, today will discuss distribution of calories and accuracy in portion sizes Most Recent Diabetes Results: Cholesterol 142 mg/dL (<200) 12/23/23 HDL Cholesterol 38 mg/dL (>40) L 12/23/23 Triglycerides 138 mg/dL (<150) 12/23/23 Creatinine 1.03 mg/dL (0.5-1.4) 12/23/23 Blood Urea Nitrogen 20 mg/dL (9-16) H 12/23/23 Sodium 136 mmol/L (135-145) 12/23/23 Potassium 4.3 mmol/L (3.3-5.1) 12/23/23 Chloride 103 mmol/L (96-108) 12/23/23 Carbon Dioxide 27 mmol/L (22-29) 12/23/23 Calcium 9.6 mg/dL (8.4-10.2) 12/23/23 AST 60 U/L (5-37) H 12/23/23 ALT 133 U/L (0-40) H 12/23/23 Total Protein 6.8 g/dL (6.5-8.0) 12/23/23 Albumin 4.2 g/dL (3.5-5.0) 12/23/23 [facility] Medical History ELINA on CPAP Nocturnal leg cramps Hypersomnia Snoring Mid back pain on right side Lower back pain Erectile dysfunction Overweight Alopecia Annual physical exam HTN (hypertension) Vitamin D deficiency Depression Surgical History History of wisdom tooth extraction Family History Father Diverticulitis Arthritis Mother Bipolar disorder HTN (hypertension) Maternal Grandmother No problems noted. Maternal Grandfather Stroke Unknown family medical history Paternal Grandmother No problems noted. Paternal Grandfather Unknown family medical history Brother No problems noted. 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/hazards: No Cognitive needs: No Hearing needs: No Vision needs: Yes Assessment & Plan Assessment & Plan (1) Obesity (BMI 30-39.9): Code(s): E66.9 - Obesity, unspecified Plan: Used wt : 140 kg, 147 kg ( 12/2023) Est kcal as per MSJ: 2927-500 = 2427 (40% carb, 30% fat/prot) Est fluid needs: 3500 ml/d (25 ml/kg bw) Rec fiber: increase to 8-10 g per day and gradually increase to 35 g or as tolerated Rec Na: < 2000 mg /d Educate patient on: (R= Reviewed, V = verbalizes understanding N/R= Needs review N/A= not applicable) * Food sources of carbohydrates and serving adequate serving sizes : R V * Difference between complex carbohydrates and simple carbohydrates, role of fiber: R V * Differences between fats (MUFA/PUFA/saturated fats, trans fats) and food sources of various fats: V * Food sources of sodium and salt and healthy modifications for heart health and kidney health: N/R * Vitamins and minerals: N/R * How to interpret food labels: R V * Healthy Plate method concept: R V * Physical activity: benefits and precaution: R V * REVIEWED: measuring food portions, reducing calories from empty calorie foods (those higher in fat/sugars) * Discuss following gluten free diet and reducing food coloring to lessen inflammation * choosing meal replacement once a day consistently to promote weight loss Patient Instructions: Distribute your calorie to 40% carb, 30% prot/30% fat Measure your food portion sizes for accuracy, keep in mind ingredients with calories added to the foods (butter, oils, olives, dips, as example, beverages Engage in walking consistently 30 minutes at least 3 times a week Coding Level of Care Code Nutr Indiv Subseq (02318) Diagnoses Obesity (BMI 30-39.9) E66.9 Time Spent (min) 30
== END 2024-01-28 14:24 | disposition home or self-care (01) ==
PROVIDERS: PCP Nurse Practitioner Family; Visit Provider Dietitian, Registered
DX: E66.9 Obesity, unspecified (principal)

== ENCOUNTER 2024-02-11 08:52 | Outpatient (AMB) | payer OTHER, SELFPAY ==
--- NOTE | 2024-02-11 08:58 | MHC.OFFVIS ---
Intake Vital Signs 02/11/24 08:59 Height 6 ft 4 in Weight 325 lb BMI 39.6 BP 118/82 Blood Pressure Location Rt brachial Position Sitting Respiration 16 Pulse 83 Pulse Source Pulse Oximeter Pulse Oximetry (%) 98 Oxygen Delivery Method Room Air Intake Visit Reasons: Follow up-conf Intake Note: Pt presents for a 2 month follow up for ELINA. 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 Allergies acetaminophen [ACETAMINOPHEN] Allergy (Severe, Verified 02/11/24 08:58) HIVES, SWOLLEN LIPS Sulfa (Sulfonamide Antibiotics) [SULFA (SULFONAMIDE ANTIBIOTICS)] Allergy (Intermediate, Verified 02/11/24 08:58) RASH chlorthalidone Adverse Reaction (Unknown, Verified 02/11/24 08:58) impotence Medication List - Last Reconciled 02/11/24 by Tanika Burkett MD albuterol sulfate 90 mcg/actuation inhalation allopurinol 300 mg PO DAILY gabapentin 300 mg PO BEDTIME ibuprofen 600 mg PO Q6H PRN levocetirizine (Xyzal) 5 mg PO DAILY losartan 100 mg PO DAILY ropinirole ER 2 mg PO BEDTIME tadalafil 10 mg PO DAILY PRN HPI HPI Comments History of Present Illness Details 33y/o male comes for follow up . He is doing well on ropinirole XR 2mg qhs and gabapentin 300mg qhs . sometime she wakes up groggy so takes gabapentin only on weekends . He had a sleep study which was c/w sleep apnea AHI 9 REM AHI 30 O2 etta 81%.He is on AUtoPAP 5-20 cm and is having some difficulty His average use has been 2.4 hrs He is using nasal pillows as he has a cornejo and the full face or nasal mask does not fit right. [facility] Medical History ELINA on CPAP Nocturnal leg cramps Hypersomnia Snoring Mid back pain on right side Lower back pain Erectile dysfunction Overweight Alopecia Annual physical exam HTN (hypertension) Vitamin D deficiency Depression Surgical History History of wisdom tooth extraction Family History Father Diverticulitis Arthritis Mother Bipolar disorder HTN (hypertension) Maternal Grandmother No problems noted. Maternal Grandfather Stroke Unknown family medical history Paternal Grandmother No problems noted. Paternal Grandfather Unknown family medical history Brother No problems noted. 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/hazards: No Cognitive needs: No Hearing needs: No Vision needs: Yes Physical Exam Vital Signs: Last Vital Signs Pulse 83 02/11/24 08:59 Resp 16 02/11/24 08:59 BP 118/82 02/11/24 08:59 Pulse Ox 98 02/11/24 08:59 Oxygen Delivery Method Room Air 02/11/24 08:59 BMI result Body Mass Index 39.6 Const General: cooperative and healthy appearing Nutritional Appearance: obese morbidly obese Orientation/consciousness: oriented to person and patient oriented x3 Limitations: no limitations HEENT Head: Yes normocephalic and Yes atraumatic Neuro General: oriented to person, patient oriented x3, gait normal, moves all extremities and no focal motor deficits Assessment & Plan Assessment & Plan (1) Restless legs syndrome (RLS): Code(s): G25.81 - Restless legs syndrome (2) ELINA on CPAP: Code(s): G47.33 - Obstructive sleep apnea (adult) (pediatric) Plan Continue ropinirole XR 2mg qhs change gabapentin 100mg 1-3 caps qhs CPAP compliance stressed Medications: Changed From gabapentin 300 mg PO BEDTIME 30 caps 6RF To gabapentin 300 mg (3 x 100 mg) PO BEDTIME 90 caps 6RF Coding Level of Care Code Est Pt Level 4 (54568) Diagnoses Restless legs syndrome (RLS) G25.81 ELINA on CPAP G47.33
[2024-02-11 08:59] VITALS: BP 118/82; PULSE 83; RESP 16; O2SAT 98; BMI 39.6
== END 2024-02-11 09:28 | disposition home or self-care (01) ==
PROVIDERS: PCP Nurse Practitioner Family; Visit Provider Psychiatry & Neurology Neurology
DX: G25.81 Restless legs syndrome (principal); G47.33 Obstructive sleep apnea (adult) (pediatric)
CPT/HCPCS: 99214

== ENCOUNTER → 2024-02-11 08:52 | Outpatient (BNVA) | payer OTHER, SELFPAY | PROVIDERS: PCP Nurse Practitioner Family; Visit Provider Psychiatry & Neurology Neurology ==

== ENCOUNTER 2024-02-17 08:23 | Outpatient (REF) | payer OTHER, SELFPAY ==
--- NOTE | ~2024-02-17 | US_ITS ---
EXAMINATION: US ABDOMEN COMPLETE CLINICAL INFORMATION: Nonalcoholic steatohepatitis. COMPARISON: Limited abdominal ultrasound 02/26/2023. Limited abdominal ultrasound with elastography 10/14/2022. TECHNIQUE: Real-time imaging of the abdominal viscera. Today's examination is mildly limited secondary to overlying bowel gas. FINDINGS: PANCREAS: Visualized portions of pancreas are normal in appearance. ABDOMINAL AORTA: The proximal, mid, and distal segments are normal in caliber. INFERIOR VENA CAVA: Visualized portions are normal. LIVER: The liver is normal in size. The liver contour is normal. Diffusely increased echogenicity of the liver. No focal hepatic lesion. There is no intrahepatic biliary duct dilatation seen. GALLBLADDER: The gallbladder is physiologically distended. No gallstones are identified. Small echogenic foci are noted along the gallbladder wall most suggestive of adenomyomatosis. No definitive gallstones identified. Negative sonographic Cintron's sign. COMMON BILE DUCT: Normal in caliber measuring 0.3 cm in diameter. RIGHT KIDNEY: Normal. No hydronephrosis. No renal calculi or focal parenchymal lesions. The kidney measures 11.2 cm in maximum dimension. LEFT KIDNEY: Normal. No hydronephrosis. No renal calculi or focal parenchymal lesions. The kidney measures 12.1 cm in maximum dimension. SPLEEN: The spleen measures 13.7 cm in maximum dimension. FREE FLUID: None. US/US abdomen complete IMPRESSION: 1. Diffusely increased echogenicity of the liver. This is a nonspecific finding but most suggestive of hepatic steatosis. Correlation with liver enzymes recommended. 2. Suspected adenomyomatosis of the gallbladder. No definitive gallstones identified. 3. Mild splenomegaly.
== END 2024-02-17 08:24 | disposition home or self-care (01) ==
LOC: HO.US 08:23
PROVIDERS: PCP Nurse Practitioner Family; Visit Provider Nurse Practitioner
DX: K75.81 Nonalcoholic steatohepatitis (NASH) (principal)
CPT/HCPCS: 76700

== ENCOUNTER 2024-02-26 14:20 | Outpatient (AMB) | payer OTHER, SELFPAY ==
--- NOTE | 2024-02-26 15:04 | MHC.OFFVIS ---
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 Required: No Accompanied by: Self / Same As Patient Allergies acetaminophen [ACETAMINOPHEN] Allergy (Severe, Verified 02/26/24 15:19) HIVES, SWOLLEN LIPS Sulfa (Sulfonamide Antibiotics) [SULFA (SULFONAMIDE ANTIBIOTICS)] Allergy (Intermediate, Verified 02/26/24 15:19) RASH chlorthalidone Adverse Reaction (Unknown, Verified 02/26/24 15:19) impotence Medication List - Last Reconciled 02/26/24 by José Mcdonough MD albuterol sulfate 90 mcg/actuation inhalation allopurinol 300 mg PO DAILY gabapentin 300 mg (3 x 100 mg) PO BEDTIME ibuprofen 600 mg PO Q6H PRN levocetirizine (Xyzal) 5 mg PO DAILY losartan 100 mg PO DAILY ropinirole ER 2 mg PO BEDTIME tadalafil 10 mg PO DAILY PRN tadalafil (Cialis) 5 mg PO DAILY HPI HPI Comments History of Present Illness Details Erectile dysfunction, states started about 2 or 3 years ago he was having hair loss was prescribed Proscar Tried sildenafil the headaches is taking tadalafil 10 mg with mild improvement Plan check hormone levels, Cialis 5 mg daily PFSH Medical History ELINA on CPAP Nocturnal leg cramps Hypersomnia Snoring Mid back pain on right side Lower back pain Erectile dysfunction Overweight Alopecia Annual physical exam HTN (hypertension) Vitamin D deficiency Depression Surgical History History of wisdom tooth extraction Family History Father Diverticulitis Arthritis Mother Bipolar disorder HTN (hypertension) Maternal Grandmother No problems noted. Maternal Grandfather Stroke Unknown family medical history Paternal Grandmother No problems noted. Paternal Grandfather Unknown family medical history Brother No problems noted. 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/hazards: No Cognitive needs: No Hearing needs: No Vision needs: Yes Review of Systems Const All systems reviewed & are unremarkable except as noted in HPI and below Reports no additional complaints Eyes Reports no additional complaints ENT Reports no additional complaints Card Reports no additional complaints Resp Reports no additional complaints GI Reports no additional complaints Reports as per HPI Musc Reports no additional complaints Skin/Breast Reports system reviewed and no additional complaints, except as documented Neuro Reports no additional complaints Psych Reports no additional complaints Endo Reports no additional complaints David/Lymph Reports no additional complaints Aller/Immun Reports no additional complaints Physical Exam Const General: healthy appearing, no acute distress and well developed Nutritional Appearance: overweight Orientation/consciousness: patient oriented x3 HEENT Head: Yes normocephalic and Yes atraumatic Eyes Conjunctivae: conjunctivae normal Neck Neck: Yes normal visual inspection Chest Chest palpation & inspection: normal inspection of the chest Resp Effort & Inspection: normal respiratory effort Cardio Rate: regular rate GI Inspection: Yes normal to inspection Skin General skin exam: no rashes or lesions noted Neuro General: patient oriented x3 Extrem General: No pedal edema Psych Appearance: grossly normal Affect: normal affect Results AMB Urinalysis, Automated UA Leukoctes 0 Ben/uL Last Edit by Angela Urias [facility] on 02/26/24 15:21 UA Nitrite Negative Last Edit by Angela Uriaswilda Urias [facility] on 02/26/24 15:21 UA Urobilinogen 0.2 mg/dL Last Edit by Angela Urias [facility] on 02/26/24 15:21 UA Protein 0 mg/dL Last Edit by Angela Urias [facility] on 02/26/24 15:21 UA pH 6.0 Last Edit by Angela Urias [facility] on 02/26/24 15:21 UA Blood 0 Damien/uL Last Edit by Anglea Urias [facility] on 02/26/24 15:21 UA Specific [place] 1.015 Last Edit by Angela Urias [facility] on 02/26/24 15:21 UA Ketone Negative Last Edit by Angeal Urias [facility] on 02/26/24 15:21 UA Bilirubin 0 mg/dL Last Edit by Angela Urias CMA on 02/26/24 15:21 UA Glucose 0 mg/dL Last Edit by Angela Urias CMA on 02/26/24 15:21 Results Reviewed Results Reviewed: Laboratory Last Values Urine pH (Auto) 6.0 02/26/24 15:20 Specific [place] (Auto) 1.015 02/26/24 15:20 Urine Protein (Auto) 0 mg/dL 02/26/24 15:20 Glucose (UA)(Auto) 0 mg/dL 02/26/24 15:20 Urine Ketones (Auto) Negative 02/26/24 15:20 Urine Blood (Auto) 0 Damien/uL 02/26/24 15:20 Urine Nitrite (Auto) Negative 02/26/24 15:20 Urine Bilirubin (Auto) 0 mg/dL 02/26/24 15:20 Urine Urobilinogen (Auto) 0.2 mg/dL 02/26/24 15:20 Leukocyte Esterase (Auto) 0 Ben/uL 02/26/24 15:20 Assessment & Plan Assessment & Plan (1) Overweight: Code(s): E66.3 - Overweight (2) Erectile dysfunction: Code(s): N52.9 - Male erectile dysfunction, unspecified (3) Screening PSA (prostate specific antigen): Code(s): Z12.5 - Encounter for screening for malignant neoplasm of prostate (4) Overweight: Code(s): E66.3 - Overweight (5) Erectile dysfunction: Code(s): N52.9 - Male erectile dysfunction, unspecified Plan check hormone levels, Cialis 5 mg daily Orders: Orders AMB Urinalysis Automated 02/26/24 R33.9 - Retention of urine, unspecified Medications: New tadalafil (Cialis) 5 mg PO DAILY 30 tabs 5RF Patient Instructions: The patient had an opportunity to ask questions regarding treatment plan. All questions were answered. No major barriers to understanding were identified. The patient expressed understanding and agreement with the above treatment plan. The patient is aware they should contact our office by phone for worsening of their current condition or the appearance of new symptoms. Compliance is encouraged with any medications and followup testing that is ordered. It is a privilege to be allowed the opportunity to participate in the urologic care of your patient. If you have any questions or concerns regarding treatment for the above conditions please do not hesitate to contact me. The office telephone contact is [phone]. This note is constructed in part using voice recognition software. While every effort has been made to ensure accuracy real estate manager errors may have been included. Yours sincerely, José Mcdonough MD Coding Level of Care Code New Pt Level 4 (50562) Diagnoses Overweight E66.3 Erectile dysfunction N52.9 Screening PSA (prostate specific antigen) Z12.5
== END 2024-02-26 15:32 | disposition home or self-care (01) ==
PROVIDERS: PCP Nurse Practitioner Family; Visit Provider Urology
DX: E66.3 Overweight (principal); N52.9 Male erectile dysfunction, unspecified; Z12.5 Encounter for screening for malignant neoplasm of prostate
CPT/HCPCS: 99204

== ENCOUNTER → 2024-02-26 14:20 | Outpatient (BNVA) | payer OTHER, SELFPAY | PROVIDERS: PCP Nurse Practitioner Family; Visit Provider Urology | DX: N52.9 Male erectile dysfunction, unspecified (principal); E66.3 Overweight; R33.9 Retention of urine, unspecified | CPT/HCPCS: 81003 ==

== ENCOUNTER 2024-04-11 08:09 | Outpatient (REF) | payer OTHER, SELFPAY ==
[2024-04-11 10:21] LABS: Appearance Urine Clear; Color Urine Yellow; Glucose Urine UA Negative (Negative); Leukocyte Esterase Urine Negative (Negative); Nitrite Urine Negative (Negative); PH 5.5 (5.0-9.0); Specific Gravity - Urine 1.025 (1.005-1.025); Urine Blood Negative (Negative); Urine Ketones Negative (Negative); Urine Protein Negative (Neg-Trace)
[2024-04-11 10:22] LABS: MANUAL DIFF FLAG NO
[2024-04-11 10:31] LABS: Eosinophils Absolute Auto 0.1 X10*3/uL (0.0-0.4); Eosinophils Percent Auto 1.7 % (0-4); Hematocrit 46.5 % (42.0-52.0); Hemoglobin 16.2 g/dl (14.0-18.0); Imm Gran Abs Auto 0.02 X10*3/uL (0.00-0.03); Imm Gran Pct Auto 0.4 % (0.0-0.4); Lymphocytes Absolute Auto 2.1 X10*3/uL (1.2-4.9); Lymphocytes Percent Auto 38.4 % (20-40); Mean Corpuscular HGB Conc 34.8 g/dl (31.0-36.0); Mean Corpuscular Hemoglobin 29.7 pg (27.0-33.0); Mean Corpuscular Volume 85.2 fL (80.0-98.0); Mean Platelet Volume 11.3 fL (9.4-12.4); Monocytes Absolute Auto 0.4 X10*3/uL (0.1-1.2); Monocytes Percent Auto 8.2 % (2-11); Neutrophils Absolute Auto 2.8 x10*3/uL (2.0-8.3); Neutrophils Percent Auto 51.3 % (45-73); Platelet Count 154 X10*3/uL (160-400); Red Blood Count 5.46 X10*6/uL (4.60-5.80); Red Cell Distribution Width 13.2 % (11.0-16.0); White Blood Count 5.4 X10*3/uL (4.8-10.8)
[2024-04-11 11:03] LABS: Alanine Aminotransferase 102 U/L (0-40); Albumin Level 4.2 g/dL (3.5-5.0); Alkaline Phosphatase 104 U/L (39-117); Anion Gap 12 (12-20); Aspartate Amino Transferase 50 U/L (5-37); Bilirubin Total 1.2 mg/dL (0.0-1.0); Blood Urea Nitrogen 18 mg/dL (9-16); Calcium 9.5 mg/dL (8.4-10.2); Carbon Dioxide 26 mmol/L (22-29); Chloride 106 mmol/L (96-108); Cholesterol 116 mg/dL (<200); Estimated Glomerular Filt Rate > 60; Glucose Fasting 103 mg/dL (60-99); HDL Cholesterol 31 mg/dL (>40); LDL Cholesterol Calculated 57 mg/dL (<100); Potassium 4.3 mmol/L (3.3-5.1); Sodium 140 mmol/L (135-145); Total Protein 6.8 g/dL (6.5-8.0); Triglycerides 143 mg/dL (<150)
[2024-04-11 11:10] LABS: TSH reflex Free T4 2.79 uIU/mL (0.32-4.0)
[2024-04-11 11:12] LABS: PSA,Total (Free>4and<10) 0.44 ng/mL (0.00-4.00)
[2024-04-12 10:19] LABS: Follicle Stimulating Hormone 2.1 mIU/mL (1.4-12.8); Lutenizing Hormone 2.8 mIU/mL (1.5-9.3); Prolactin 8.4 ng/mL (2.0-18.0)
[2024-04-16 19:53] LABS: Testosterone, Total 280 ng/dL (250-1100)
== END 2024-04-11 08:10 | disposition home or self-care (01) ==
LOC: HO.HMGCLDS 08:09
PROVIDERS: PCP Nurse Practitioner Family; Referring Provider Urology; Visit Provider Nurse Practitioner Family
DX: Z00.00 Encounter for general adult medical examination without abnormal findings (principal); N52.9 Male erectile dysfunction, unspecified; E66.3 Overweight; Z12.5 Encounter for screening for malignant neoplasm of prostate
CPT/HCPCS: 36415; 80053; 80061; 81003; 83001; 83002; 84146; 84153; 84402; 84403; 84443; 85025

== ENCOUNTER 2024-04-13 09:49 | Outpatient (AMB) | payer OTHER, SELFPAY ==
--- NOTE | 2024-04-13 10:00 | MHC.OFFVIS ---
Vital Signs 04/13/24 10:06 Height 6 ft 4 in Weight 327 lb 9.71 oz BMI 39.9 BP 138/82 Blood Pressure Location Rt brachial Position Sitting Pulse 86 Pulse Source Pulse Oximeter Pulse Oximetry (%) 99 Oxygen Delivery Method Room Air Intake Visit Reasons: FMS Intake Note: Patient last seen 07/23/23 presents today for follow up. Reports gluten free diet has made a positive difference in terms of joint pain/achiness. 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 Required: No Accompanied by: Self / Same As Patient Allergies acetaminophen [ACETAMINOPHEN] Allergy (Severe, Verified 04/13/24 10:08) HIVES, SWOLLEN LIPS Sulfa (Sulfonamide Antibiotics) [SULFA (SULFONAMIDE ANTIBIOTICS)] Allergy (Intermediate, Verified 04/13/24 10:08) RASH chlorthalidone Adverse Reaction (Unknown, Verified 04/13/24 10:08) impotence Medication List - Last Reconciled 04/13/24 by Isidra Rivera MD albuterol sulfate 90 mcg/actuation inhalation allopurinol 300 mg PO DAILY gabapentin 300 mg (3 x 100 mg) PO BEDTIME ibuprofen 600 mg PO Q6H PRN levocetirizine (Xyzal) 5 mg PO DAILY losartan 100 mg PO DAILY ropinirole ER 2 mg PO BEDTIME tadalafil (Cialis) 5 mg PO DAILY HPI Comments Details: This is a 33-year-old male with mild inflammatory arthritis who returns for follow-up. States that since November he has been doing a gluten free diet consistently. Since then he has noticed improved joint pains, stiffness and improved stability. Continues to have very mild intermittent psoriasis. Overall doing very well. Has no complaints today Initial history: This is a 33-year-old male with past medical history of natural is referred for evaluation of psoriatic arthritis. Patient's father has psoriatic arthritis. Patient states that over the last year he has noticed pain swelling and stiffness of his hands, fingers, wrists, toes. He can no longer wear his ring. He currently has a rubbery ring. States that Aleve provides moderate relief. He also brought paraffin wax machine and using it provides temporary relief. He is unaware of a history of psoriasis. He is on allopurinol prescribed by GI for SALINAS. is not for gout. He states that his fingers change color to pale white and sometimes to red in the cold. He has mid back pain. Sometimes wakes him up from sleep. Improves with adjusting his position. [facility] Medical History ELINA on CPAP Nocturnal leg cramps Hypersomnia Snoring Mid back pain on right side Lower back pain Erectile dysfunction Overweight Alopecia Annual physical exam HTN (hypertension) Vitamin D deficiency Depression Surgical History History of wisdom tooth extraction Family History Father Diverticulitis Arthritis Mother Bipolar disorder HTN (hypertension) Maternal Grandmother No problems noted. Maternal Grandfather Stroke Unknown family medical history Paternal Grandmother No problems noted. Paternal Grandfather Unknown family medical history Brother No problems noted. 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/hazards: No Cognitive needs: No Hearing needs: No Vision needs: Yes Review of Systems Musc Denies arthralgias and Denies stiffness Physical Exam Vital Signs: Last Vital Signs Pulse 86 04/13/24 10:06 BP 138/82 04/13/24 10:06 Pulse Ox 99 04/13/24 10:06 Oxygen Delivery Method Room Air 04/13/24 10:06 BMI result Body Mass Index 39.9 Const General: cooperative and healthy appearing Nutritional Appearance: obese morbidly obese Orientation/consciousness: patient oriented x3 Limitations: no limitations HEENT Head: Yes normocephalic and Yes atraumatic Resp Effort & Inspection: normal respiratory effort and able to speak in complete sentences Neuro General: patient oriented x3 Extrem Other: Minimal finger puffiness bilaterally but no tenderness No MCP swelling or tenderness bilaterally Few fibromyalgia tender points No nail pitting Varicose veins both legs Assessment & Plan Assessment & Plan (1) Psoriatic arthritis: Code(s): L40.50 - Arthropathic psoriasis, unspecified Category: Medical Plan: This is a 34-year-old male with mild inflammatory arthritis who presents for follow-up. Has history of psoriasis for many years. There was some suspicion of inflammatory arthritis on previous visits. He took Otezla few months without much improvement and it was discontinued due to GI upset and diarrhea. Over the last 4 months patient has been following a gluten free diet with significantly improved abdominal bloating, joint pains stiffness and has been noticing increased flexibility. He might have an element of gluten sensitivity. Not recall getting an endoscopy. At some point patient can be tested for celiac disease however checking his antibodies while he has on a gluten free diet can be false negative. Since patient is doing well currently off gluten. I do not see a need for further testing. Follow-up as needed Plan I spent 16 minutes reviewing patient's chart, evaluating patient, counseling patient and documenting in the chart Coding Level of Care Code Est Pt Level 3 (47374) Diagnoses Psoriatic arthritis L40.50
[2024-04-13 10:06] VITALS: BP 138/82; PULSE 86; O2SAT 99; BMI 39.9
== END 2024-04-13 10:16 | disposition home or self-care (01) ==
PROVIDERS: PCP Nurse Practitioner Family; Visit Provider Student in an Organized Health Care Education/Training Program
DX: L40.50 Arthropathic psoriasis, unspecified (principal)
CPT/HCPCS: 99213

== ENCOUNTER → 2024-04-13 09:49 | Outpatient (BNVA) | payer OTHER, SELFPAY | PROVIDERS: PCP Nurse Practitioner Family; Visit Provider Student in an Organized Health Care Education/Training Program ==

== ENCOUNTER 2024-04-18 08:19 | Outpatient (AMB) | payer OTHER, SELFPAY ==
--- NOTE | 2024-04-18 08:25 | A.OFFVIS_ITS ---
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 Accompanied by: Self / Same As Patient Allergies acetaminophen [ACETAMINOPHEN] Allergy (Severe, Verified 04/18/24 08:35) HIVES, SWOLLEN LIPS Sulfa (Sulfonamide Antibiotics) [SULFA (SULFONAMIDE ANTIBIOTICS)] Allergy (Intermediate, Verified 04/18/24 08:35) RASH chlorthalidone Adverse Reaction (Unknown, Verified 04/18/24 08:35) impotence Medication List - Last Reconciled 04/18/24 by José Mcdonough MD albuterol sulfate 90 mcg/actuation inhalation allopurinol 300 mg PO DAILY gabapentin 300 mg (3 x 100 mg) PO BEDTIME ibuprofen 600 mg PO Q6H PRN levocetirizine (Xyzal) 5 mg PO DAILY losartan 100 mg PO DAILY ropinirole ER 2 mg PO BEDTIME tadalafil (Cialis) 5 mg PO DAILY HPI Comments Details: 04/18/2024--Sumit is being evaluated for erectile dysfunction. He states that he feels the problem started 2-3 years ago after he has a Proscar for hair loss. He was prescribed Cialis 5 mg daily. He was sent for hormone levels and PSA. I have reviewed results with him. Testosterone level is low normal. The patient states he has been using the Cialis 5 mg daily and has noticeable improvement in erections. He is satisfied with the results. At this time we will not prescribe testosterone replacement. Follow-up in 1 year Labs: PSA-04/11/2024-0.44 ng/mL, FSH 2.1 and LH 2.8, prolactin 8.4 within normal limits Total testosterone 280 ng/dL, free testosterone 58pg/mL. Review of chart: 02/26/2024--Erectile dysfunction, states started about 2 or 3 years ago he was having hair loss was prescribed Proscar Tried sildenafil the headaches is taking tadalafil 10 mg with mild improvement. Plan check hormone levels, Cialis 5 mg daily PFSH Medical History ELINA on CPAP Nocturnal leg cramps Hypersomnia Snoring Mid back pain on right side Lower back pain Erectile dysfunction Overweight Alopecia Annual physical exam HTN (hypertension) Vitamin D deficiency Depression Surgical History History of wisdom tooth extraction Family History (Reviewed 04/18/24 @ 09: by José Mcdonough MD) Father Diverticulitis Arthritis Mother Bipolar disorder HTN (hypertension) Maternal Grandmother No problems noted. Maternal Grandfather Stroke Unknown family medical history Paternal Grandmother No problems noted. Paternal Grandfather Unknown family medical history Brother No problems noted. 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/hazards: No Cognitive needs: No Hearing needs: No Vision needs: Yes Review of Systems Const All systems reviewed & are unremarkable except as noted in HPI and below Reports no additional complaints Eyes Reports no additional complaints ENT Reports no additional complaints Card Reports no additional complaints Resp Reports no additional complaints GI Reports no additional complaints Reports as per HPI Musc Reports no additional complaints Skin/Breast Reports system reviewed and no additional complaints, except as documented Neuro Reports no additional complaints Psych Reports no additional complaints Endo Reports no additional complaints David/Lymph Reports no additional complaints Aller/Immun Reports no additional complaints Assessment & Plan Assessment & Plan (1) Overweight: Code(s): E66.3 - Overweight Category: Medical (2) Erectile dysfunction: Code(s): N52.9 - Male erectile dysfunction, unspecified Category: Medical (3) Screening PSA (prostate specific antigen): Code(s): Z12.5 - Encounter for screening for malignant neoplasm of prostate Category: Medical (4) Overweight: Code(s): E66.3 - Overweight Category: Medical (5) Erectile dysfunction: Code(s): N52.9 - Male erectile dysfunction, unspecified Category: Medical Plan Continue Cialis 5 mg daily. Follow-up in 1 year Patient Instructions: The patient had an opportunity to ask questions regarding treatment plan. The patient expressed understanding and agreement with the above treatment plan. The patient is aware they should contact our office by phone for worsening of their current condition or the appearance of new symptoms. Compliance is encouraged with any medications and followup testing that is ordered. It is a privilege to be allowed the opportunity to participate in the urologic care of your patient. If you have any questions or concerns regarding treatment for the above conditions please do not hesitate to contact me. The office telephone contact is [phone]. This note is constructed in part using voice recognition software. While every effort has been made to ensure accuracy small machine bindery operator errors may have been included. Yours sincerely, José Mcdonough MD Coding Level of Care Code Est Pt Level 3 (04969) Diagnoses Overweight E66.3 Erectile dysfunction N52.9 Screening PSA (prostate specific antigen) Z12.5
== END 2024-04-18 09:23 | disposition home or self-care (01) ==
PROVIDERS: PCP Nurse Practitioner Family; Visit Provider Urology
DX: E66.3 Overweight (principal); N52.9 Male erectile dysfunction, unspecified; Z12.5 Encounter for screening for malignant neoplasm of prostate
CPT/HCPCS: 99213

== ENCOUNTER → 2024-04-18 08:19 | Outpatient (BNVA) | payer OTHER, SELFPAY | PROVIDERS: PCP Nurse Practitioner Family; Visit Provider Urology ==

== ENCOUNTER 2024-08-03 09:40 | Outpatient (AMB) | payer BC, SELFPAY ==
--- NOTE | 2024-08-03 09:43 | MHC.OFFVIS ---
Vital Signs 08/03/24 09:44 Height 6 ft 4 in Weight 320 lb BMI 38.9 BP 140/64 H Blood Pressure Location Lt brachial Position Sitting Pulse 85 Intake Visit Reasons: Follow up 6 months. Intake Note: Patient follow up for GOUT and US results. Patient denies any GI issues just diarrhea on and off. Social Professionals Required: No Accompanied by: Self / Same As Patient Allergies acetaminophen [ACETAMINOPHEN] Allergy (Severe, Verified 08/03/24 09:42) HIVES, SWOLLEN LIPS Sulfa (Sulfonamide Antibiotics) [SULFA (SULFONAMIDE ANTIBIOTICS)] Allergy (Intermediate, Verified 08/03/24 09:42) RASH chlorthalidone Adverse Reaction (Unknown, Verified 08/03/24 09:42) impotence HPI HPI Follow up 6 months.: Details: Assessment & Plan (1) Gout: Code(s): M10.9 - Gout, unspecified (2) SALINAS (nonalcoholic steatohepatitis): Comment: BASELINE LABS: 05/2018 liver functions normal, 06/2018 autoimmune workup and hepatitis screening negative, initial alpha fetoprotein 1.1, 2. Elevated bilirubin - R17, Gilbert's syndrome, direct bili is normal CURRENT LABS 12/23/22 Plt Count 183 Total Bilirubin 0.9 AST 40 H ALT 91 H Alkaline Phosphatase 118 H 12/23/22 Fasting Glucose 103 H US OF THE ABD 10/16/22 IMPRESSION: 1. Hepatic steatosis with focal area of fatty sparing near the gallbladder. ? 2. Liver elastography: Median liver stiffness measures 1.82 m/s? which corresponds to cACLD (suggestive). Code(s): K75.81 - Nonalcoholic steatohepatitis (SALINAS) Plan He is avoiding gluten as this seem to be helping his joints. His wt has been stable after a period of gain, and this despite dieting which has been frustrating for him. Trans are up from last measure, but GGT trending down. Ferritin is normal, so doubt hemachromatosis. His TSH is creeping up, so this may bear watching. Him mother had thyroid disease. He continues to struggle to lose weight. He now is experimenting with CPAP, but he seems to wake up with if off and does not remember taking it off. He has had an improvement in sleep with the ropinerol for RLS. He continues on alopurinol. Ordering US as this is overdue. ROV 6 mos. Orders: Orders US abdomen complete Today K75.81 - Nonalcoholic steatohepatitis (SALINAS) LABS: Laboratory Tests 04/11/24 08:35 WBC 5.4 Hgb 16.2 Hct 46.5 Plt Count 154 L Estimated GFR > 60 Fasting Glucose 103 H Total Bilirubin 1.2 H AST 50 H ALT 102 H Alkaline Phosphatase 104 TSH 2.79 ULTRASOUND OF THE ABDOMEN 02/19/24 FINDINGS: PANCREAS: Visualized portions of pancreas are normal in appearance. ABDOMINAL AORTA: The proximal, mid, and distal segments are normal in caliber. INFERIOR VENA CAVA: Visualized portions are normal. LIVER: The liver is normal in size. The liver contour is normal. Diffusely increased echogenicity of the liver. No focal hepatic lesion. There is no intrahepatic biliary duct dilatation seen. GALLBLADDER: The gallbladder is physiologically distended. No gallstones are identified. Small echogenic foci are noted along the gallbladder wall most suggestive of adenomyomatosis. No definitive gallstones identified. Negative sonographic Cintron's sign. COMMON BILE DUCT: Normal in caliber measuring 0.3 cm in diameter. RIGHT KIDNEY: Normal. No hydronephrosis. No renal calculi or focal parenchymal lesions. The kidney measures 11.2 cm in maximum dimension. LEFT KIDNEY: Normal. No hydronephrosis. No renal calculi or focal parenchymal lesions. The kidney measures 12.1 cm in maximum dimension. SPLEEN: The spleen measures 13.7 cm in maximum dimension. FREE FLUID: None. US/US abdomen complete IMPRESSION: 1. Diffusely increased echogenicity of the liver. This is a nonspecific finding but most suggestive of hepatic steatosis. Correlation with liver enzymes recommended. 2. Suspected adenomyomatosis of the gallbladder. No definitive gallstones identified. 3. Mild splenomegaly. TODAY'S VISIT He continues to do well. Took up Pilates as a form of exercise and is enjoying it. His weight is down a little bit which is good for his overall health in his liver health. He has no new health concerns to report. He is aware that he is due for more screening and will go for the lab work soon and the ultrasound will be scheduled. We review his last labs and ultrasound from January and he was trending down probably reflecting the weight loss and there were no suspicious findings on his ultrasound. Return office visit in 6 months [facility] Medical History (Updated 08/03/24 @ 10:13 by GURWINDER Rodriguez) Annual physical exam ELINA on CPAP Nocturnal leg cramps Hypersomnia Snoring Mid back pain on right side Lower back pain Erectile dysfunction Overweight Alopecia HTN (hypertension) Vitamin D deficiency Depression Surgical History History of wisdom tooth extraction Family History Father Diverticulitis Arthritis Mother Bipolar disorder HTN (hypertension) Maternal Grandmother No problems noted. Maternal Grandfather Stroke Unknown family medical history Paternal Grandmother No problems noted. Paternal Grandfather Unknown family medical history Brother No problems noted. 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/hazards: No Cognitive needs: No Hearing needs: No Vision needs: Yes Review of Systems Const Denies fatigue, Denies fever(s), Denies night sweats, Denies poor appetite and Reports weight loss Eyes Details: glasses Reports requires corrective lenses ENT Reports Normal hearing present, Denies dental pain, Denies dysphagia, Denies hearing loss, Denies mouth pain, Denies odynophagia, Denies throat swelling, Denies tongue swelling and Reports other (Dentition adequate) Card Reports no additional complaints Resp Reports no additional complaints GI Details: Denies abdominal pain, Denies melena, Denies bloating, Denies hematochezia, Denies constipation, Denies GI cramping, Denies dysphagia, Denies excessive flatus, Denies early satiety, Denies heartburn, Denies diarrhea, Denies nausea, Denies odynophagia, Denies vomiting and Denies hematemesis Skin/Breast Denies pruritus, Denies lesions, Denies rash and Denies jaundice Neuro Reports Normal hearing present and Denies Abnormal speech present Endo Denies fatigue Aller/Immun Denies throat swelling and Denies tongue swelling Physical Exam Vital Signs: Last Vital Signs Pulse 85 08/03/24 09:44 BP 140/64 H 08/03/24 09:44 BMI result Body Mass Index 38.9 Const General: cooperative, no acute distress, well developed and well groomed Nutritional Appearance: well nourished and obese Orientation/consciousness: oriented to person, oriented to place and oriented to time Limitations: No language barrier HEENT Head: Yes normocephalic and Yes atraumatic Eyes General: appearance normal, both eyes and all related structures Pupils: Equal, round and reactive pupils present Neck Neck: Yes normal visual inspection and Yes no lymphadenopathy Thyroid: Thyroid normal Resp Effort & Inspection: normal respiratory effort and able to speak in complete sentences Auscultation: clear to auscultation bilaterally Cardio Rate: regular rate Rhythm: regular rhythm Heart sounds: Normal, physiologic split S2 sound present Peripheral pulses: radial pulses present and posterior tibial pulses present GI Inspection: No distended, No Abdominal panniculus present and Yes obesity Palpation (GI): Soft to palpation, nontender, no guarding, not rigid and No hepatosplenomegaly present Percussion: Yes normal to percussion Auscultation: normal bowel sounds Rectal Exam - Male: Yes deferred Skin General skin exam: no rashes or lesions noted, turgor normal, skin not dry, no jaundice, No spider nevi and no striae Rashes: no rashes Nails: normal Neuro General: oriented to person, oriented to place and oriented to time Cranial nerves: Yes Equal, round and reactive pupils present and Yes Normal hearing present Speech: No Abnormal speech present Extrem General: Yes normal to inspection, No clubbing, No cyanosis and No edema Psych Appearance: grossly normal and well kempt Mental Status: mental status grossly normal Speech and movement: Normal speech and movement present Affect: normal affect Attitude: cooperative Thought process: Normal thought process present and not confabulating Thought content: Normal thought content present Insight: Good insight present (Psych) Judgement: Good judgement present (Psych) Assessment & Plan Assessment & Plan (1) SALINAS (nonalcoholic steatohepatitis): Comment: BASELINE LABS: 05/2018 liver functions normal, 06/2018 autoimmune workup and hepatitis screening negative, initial alpha fetoprotein 1.1, 2. Elevated bilirubin - R17, Gilbert's syndrome, direct bili is normal CURRENT LABS 12/23/22 Plt Count 183 Total Bilirubin 0.9 AST 40 H ALT 91 H Alkaline Phosphatase 118 H 12/23/22 Fasting Glucose 103 H US OF THE ABD 10/16/22 IMPRESSION: 1. Hepatic steatosis with focal area of fatty sparing near the gallbladder. ? 2. Liver elastography: Median liver stiffness measures 1.82 m/s? which corresponds to cACLD (suggestive). Code(s): K75.81 - Nonalcoholic steatohepatitis (SALINAS) Category: Medical Plan He continues to do well. Took up Pilates as a form of exercise and is enjoying it. His weight is down a little bit which is good for his overall health in his liver health. He has no new health concerns to report. He is aware that he is due for more screening and will go for the lab work soon and the ultrasound will be scheduled. We review his last labs and ultrasound from January and he was trending down probably reflecting the weight loss and there were no suspicious findings on his ultrasound. Return office visit in 6 months Orders: Orders Comprehensive Met. Panel Today K75.81 - Nonalcoholic steatohepatitis (SALINAS) TSH reflex Free T4 Today K75.81 - Nonalcoholic steatohepatitis (SALINAS) US abdomen complete Today K75.81 - Nonalcoholic steatohepatitis (SALINAS) Coding Level of Care Code Est Pt Level 3 (63397) Diagnoses SALINAS (nonalcoholic steatohepatitis) K75.81
[2024-08-03 09:44] VITALS: BP 140/64; PULSE 85; BMI 38.9
== END 2024-08-03 10:16 | disposition home or self-care (01) ==
PROVIDERS: PCP Nurse Practitioner Family; Visit Provider Nurse Practitioner
DX: K75.81 Nonalcoholic steatohepatitis (NASH) (principal)
CPT/HCPCS: 99213

== ENCOUNTER → 2024-08-03 09:40 | Outpatient (BNVA) | payer SELFPAY | PROVIDERS: PCP Nurse Practitioner Family; Visit Provider Nurse Practitioner ==

== ENCOUNTER 2024-08-09 08:26 | Outpatient (AMB) | payer BC, SELFPAY ==
--- NOTE | 2024-08-09 08:35 | A.OFFVIS_ITS ---
VS Expanded 08/09/24 09:09 Height 6 ft 4 in Weight 318 lb 5.56 oz BMI 38.7 Intake Visit Reasons: Obesity/CONFIRMED Allergies acetaminophen [ACETAMINOPHEN] Allergy (Severe, Verified 08/03/24 09:42) HIVES, SWOLLEN LIPS Sulfa (Sulfonamide Antibiotics) [SULFA (SULFONAMIDE ANTIBIOTICS)] Allergy (Intermediate, Verified 08/03/24 09:42) RASH chlorthalidone Adverse Reaction (Unknown, Verified 08/03/24 09:42) impotence Nutrition Presentation Details: Pt presents for MNT f/u for obesity Pt reports working on keeping track of total caloric intake using phone rasta, measuring portion sizes . Pt reports this is helping him the most. Now working on reducing on snacks and mindful of fats. Reports including fiber in diet via vegetables, fruits and having fiber gummies (3-6 = 5-10 g fiber) fluid: water, electrolytes, diet beverages BS Monitoring Most Recent Diabetes Results: Cholesterol 116 mg/dL (<200) 04/11/24 HDL Cholesterol 31 mg/dL (>40) L 04/11/24 Triglycerides 143 mg/dL (<150) 04/11/24 Creatinine 0.99 mg/dL (0.5-1.4) 04/11/24 Blood Urea Nitrogen 18 mg/dL (9-16) H 04/11/24 Sodium 140 mmol/L (135-145) 04/11/24 Potassium 4.3 mmol/L (3.3-5.1) 04/11/24 Chloride 106 mmol/L (96-108) 04/11/24 Carbon Dioxide 26 mmol/L (22-29) 04/11/24 Calcium 9.5 mg/dL (8.4-10.2) 04/11/24 AST 50 U/L (5-37) H 04/11/24 ALT 102 U/L (0-40) H 04/11/24 Total Protein 6.8 g/dL (6.5-8.0) 04/11/24 Albumin 4.2 g/dL (3.5-5.0) 04/11/24 [facility] Medical History (Updated 08/03/24 @ 10:13 by GURWINDER Rodriguez) Annual physical exam ELINA on CPAP Nocturnal leg cramps Hypersomnia Snoring Mid back pain on right side Lower back pain Erectile dysfunction Overweight Alopecia HTN (hypertension) Vitamin D deficiency Depression Surgical History History of wisdom tooth extraction Family History Father Diverticulitis Arthritis Mother Bipolar disorder HTN (hypertension) Maternal Grandmother No problems noted. Maternal Grandfather Stroke Unknown family medical history Paternal Grandmother No problems noted. Paternal Grandfather Unknown family medical history Brother No problems noted. 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/hazards: No Cognitive needs: No Hearing needs: No Vision needs: Yes Assessment & Plan Assessment & Plan (1) Obesity (BMI 30-39.9): Code(s): E66.9 - Obesity, unspecified Category: Medical Plan: Used wt : 140 kg, 147 kg ( 12/2023), 144 kg (07/2024) Est kcal as per MSJ: 2927-500 = 2427 (40% carb, 30% fat/prot) Est fluid needs: 3500 ml/d (25 ml/kg bw) Rec fiber: increase to 8-10 g per day and gradually increase to 35 g or as tolerated Rec Na: < 2000 mg /d Educate patient on: (R= Reviewed, V = verbalizes understanding N/R= Needs review N/A= not applicable) * Food sources of carbohydrates and serving adequate serving sizes : R V * Difference between complex carbohydrates and simple carbohydrates, role of f iber: R V * Differences between fats (MUFA/PUFA/saturated fats, trans fats) and food sources of various fats: V * Food sources of sodium and salt and healthy modifications for heart health and kidney health: R * Vitamins and minerals: R * How to interpret food labels: R V * Healthy Plate method concept: R V * Physical activity: benefits and precaution: R V * REVIEWED: measuring food portions, reducing calories from empty calorie foods (those higher in fat/sugars)- continue to monitor total caloric intake * REVIEWED: Choosing lower fat food options and lower sodium food options * Discussed following gluten free diet and reducing food coloring to lessen inflammation * choosing meal replacement once a day consistently to promote weight loss Coding Level of Care Code Nutr Indiv Subseq (63861) Diagnoses Obesity (BMI 30-39.9) E66.9 Time Spent (min) 30
[2024-08-09 09:09] VITALS: BMI 38.7
== END 2024-08-09 09:10 | disposition home or self-care (01) ==
PROVIDERS: PCP Nurse Practitioner Family; Visit Provider Dietitian, Registered
DX: E66.9 Obesity, unspecified (principal)

== ENCOUNTER → 2024-08-09 08:26 | Outpatient (BNVA) | payer OTHER, SELFPAY | PROVIDERS: PCP Nurse Practitioner Family; Visit Provider Dietitian, Registered | DX: E66.9 Obesity, unspecified (principal); Z68.38 Body mass index [BMI] 38.0-38.9, adult; Z71.3 Dietary counseling and surveillance | CPT/HCPCS: 97803 ==

== ENCOUNTER 2024-08-22 07:57 | Outpatient (AMB) | payer BC, SELFPAY ==
--- NOTE | 2024-08-22 07:57 | MHC.OFFVIS ---
Vital Signs 08/22/24 07:59 Height 6 ft 4 in Weight 318 lb BMI 38.7 BP 136/76 Blood Pressure Location Rt brachial Position Sitting Respiration 16 Pulse 88 Pulse Source Palpation Pulse Oximetry (%) 96 Oxygen Delivery Method Room Air Intake Visit Reasons: 6 Month F/U Intake Note: Pt presents for 6 month follow up for ELINA. Director Telehealth Required: No Allergies acetaminophen [ACETAMINOPHEN] Allergy (Severe, Verified 08/22/24 07:58) HIVES, SWOLLEN LIPS Sulfa (Sulfonamide Antibiotics) [SULFA (SULFONAMIDE ANTIBIOTICS)] Allergy (Intermediate, Verified 08/22/24 07:58) RASH chlorthalidone Adverse Reaction (Unknown, Verified 08/22/24 07:58) impotence Medication List - Last Reconciled 08/22/24 by Tanika Burkett MD albuterol sulfate 90 mcg/actuation inhalation allopurinol 300 mg PO DAILY gabapentin 300 mg (3 x 100 mg) PO BEDTIME ibuprofen 600 mg PO Q6H PRN levocetirizine (Xyzal) 5 mg PO DAILY losartan 100 mg PO DAILY ropinirole ER 2 mg PO BEDTIME tadalafil (Cialis) 5 mg PO DAILY HPI Comments Details: 34y/o male comes for follow up . He is doing well on ropinirole XR 2mg qhs and gabapentin 300mg qhs . He had a sleep study which was c/w sleep apnea AHI 9 REM AHI 30 O2 etta 81%.He is on AUtoPAP 5-20 cm and is having some difficulty His average use has been 1.5 hrs Usage 57% AHI less than 1 he says his mask falls off and he lange snot put it on and on some days he sleep before he can put on his CPAP. He is using nasal pillows as he has a cornejo and the full face or nasal mask does not fit right. [facility] Medical History Annual physical exam ELINA on CPAP Nocturnal leg cramps Hypersomnia Snoring Mid back pain on right side Lower back pain Erectile dysfunction Overweight Alopecia HTN (hypertension) Vitamin D deficiency Depression Surgical History History of wisdom tooth extraction Family History Father Diverticulitis Arthritis Mother Bipolar disorder HTN (hypertension) Maternal Grandmother No problems noted. Maternal Grandfather Stroke Unknown family medical history Paternal Grandmother No problems noted. Paternal Grandfather Unknown family medical history Brother No problems noted. 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/hazards: No Cognitive needs: No Hearing needs: No Vision needs: Yes Physical Exam Vital Signs: Last Vital Signs Pulse 88 08/22/24 07:59 Resp 16 08/22/24 07:59 BP 136/76 08/22/24 07:59 Pulse Ox 96 08/22/24 07:59 Oxygen Delivery Method Room Air 08/22/24 07:59 BMI result Body Mass Index 38.7 Const General: cooperative and healthy appearing Nutritional Appearance: obese morbidly obese Orientation/consciousness: oriented to person and patient oriented x3 Limitations: no limitations HEENT Head: Yes normocephalic and Yes atraumatic Neuro General: oriented to person, patient oriented x3, gait normal, moves all extremities and no focal motor deficits Assessment & Plan Assessment & Plan (1) Restless legs syndrome (RLS): Code(s): G25.81 - Restless legs syndrome Category: Medical (2) ELINA on CPAP: Code(s): G47.33 - Obstructive sleep apnea (adult) (pediatric) Category: Medical Plan Continue ropinirole XR 2mg qhs change gabapentin 100mg 1-3 caps qhs CPAP compliance stressed will refer to sleep dentistry for oral device He would be a good candidate for [facility] . will consider during next visit Orders: Referrals Dentistry Referral G47.33 - Obstructive sleep apnea (adult) (pediatric) Medications: Refilled gabapentin 300 mg (3 x 100 mg) PO BEDTIME 90 caps 6RF ropinirole ER 2 mg PO BEDTIME 30 tabs 6RF Coding Level of Care Code Est Pt Level 4 (58470) Diagnoses Restless legs syndrome (RLS) G25.81 ELINA on CPAP G47.33
[2024-08-22 07:59] VITALS: BP 136/76; PULSE 88; RESP 16; O2SAT 96; BMI 38.7
== END 2024-08-22 08:16 | disposition home or self-care (01) ==
PROVIDERS: PCP Nurse Practitioner Family; Visit Provider Psychiatry & Neurology Neurology
DX: G25.81 Restless legs syndrome (principal); G47.33 Obstructive sleep apnea (adult) (pediatric)
CPT/HCPCS: 99214

== ENCOUNTER → 2024-08-22 07:57 | Outpatient (BNVA) | payer BC, SELFPAY | PROVIDERS: PCP Nurse Practitioner Family; Visit Provider Psychiatry & Neurology Neurology ==

== ENCOUNTER 2024-08-30 07:32 | Outpatient (REF) | payer BC, SELFPAY ==
[2024-08-30 10:38] LABS: Alanine Aminotransferase 97 U/L (0-40); Albumin Level 4.2 g/dL (3.5-5.0); Alkaline Phosphatase 119 U/L (39-117); Anion Gap 10 (12-20); Aspartate Amino Transferase 45 U/L (5-37); Bilirubin Total 0.8 mg/dL (0.0-1.0); Blood Urea Nitrogen 15 mg/dL (9-16); Calcium 9.4 mg/dL (8.4-10.2); Carbon Dioxide 28 mmol/L (22-29); Chloride 106 mmol/L (96-108); Estimated Glomerular Filt Rate > 60; Glucose Random 114 mg/dL (60-115); Potassium 4.4 mmol/L (3.3-5.1); Sodium 140 mmol/L (135-145); Total Protein 6.7 g/dL (6.5-8.0)
[2024-08-30 10:39] LABS: TSH reflex Free T4 1.94 uIU/mL (0.32-4.0)
== END 2024-08-30 07:33 | disposition home or self-care (01) ==
LOC: HO.HMGCLDS 07:32
PROVIDERS: PCP Nurse Practitioner Family; Visit Provider Nurse Practitioner
DX: K75.81 Nonalcoholic steatohepatitis (NASH) (principal)
CPT/HCPCS: 36415; 80053; 84443

== ENCOUNTER 2024-08-31 08:23 | Outpatient (REF) | payer BC, SELFPAY ==
--- NOTE | ~2024-08-31 | US_ITS ---
EXAMINATION: US ABDOMEN COMPLETE CLINICAL INFORMATION: Nonalcoholic steatohepatitis. COMPARISON: Ultrasound abdomen complete 02/17/2024. Limited abdominal ultrasound 02/26/2023. TECHNIQUE: Real-time imaging of the abdominal viscera. FINDINGS: PANCREAS: The visualized pancreas appears unremarkable but the pancreatic tail is obscured by bowel gas. ABDOMINAL AORTA: The proximal, mid, and distal segments are normal in caliber. INFERIOR VENA CAVA: Visualized portions are normal. LIVER: Liver is enlarged measuring over 17.5 cm in greatest length and demonstrates increased echogenicity consistent with hepatic steatosis. The liver contour is normal. No focal hepatic lesion. There is no intrahepatic biliary duct dilatation seen. GALLBLADDER: The gallbladder is physiologically distended without evidence of stones, sludge, polyps, wall thickening or pericholecystic fluid. There is some comet-tail shadowing with findings consistent with adenomyomatosis. COMMON BILE DUCT: Normal in caliber measuring 0.3 cm in diameter. RIGHT KIDNEY: Normal. No hydronephrosis. No renal calculi or focal parenchymal lesions. The kidney measures 12.2 cm in maximum dimension. LEFT KIDNEY: Normal. No hydronephrosis. No renal calculi or focal parenchymal lesions. The kidney measures 12.1 cm in maximum dimension. SPLEEN: The spleen is enlarged measuring 15.5 cm in maximum dimension. FREE FLUID: None. US/US abdomen complete IMPRESSION: 1. Enlarged fatty liver with splenomegaly. 2. Adenomyomatosis of the gallbladder. Electronically signed by: Gabriel Hickey MD 10/07/2024 04:48 PM [facility]
== END 2024-08-31 08:24 | disposition home or self-care (01) ==
LOC: HO.HMGCX 08:23
PROVIDERS: PCP Nurse Practitioner Family; Visit Provider Nurse Practitioner
DX: K75.81 Nonalcoholic steatohepatitis (NASH) (principal)
CPT/HCPCS: 76700

== ENCOUNTER 2025-01-11 08:16 | Outpatient (REF) | payer BC, SELFPAY ==
[2025-01-11 10:41] LABS: MANUAL DIFF FLAG NO
[2025-01-11 10:43] LABS: Color Urine Yellow; Glucose Urine UA Negative (Negative); Leukocyte Esterase Urine Negative (Negative); Nitrite Urine Negative (Negative); Specific Gravity - Urine 1.015 (1.005-1.025); Urine Blood Negative (Negative); Urine Ketones Negative (Negative); Urine Protein Negative (Neg-Trace)
[2025-01-11 10:44] LABS: Appearance Urine Clear
[2025-01-11 10:58] LABS: Basophils Percent Auto 0.1 % (0-2); Eosinophils Absolute Auto 0.2 X10*3/uL (0.0-0.4); Eosinophils Percent Auto 2.2 % (0-4); Imm Gran Abs Auto 0.02 X10*3/uL (0.00-0.03); Imm Gran Pct Auto 0.3 % (0.0-0.4); Lymphocytes Absolute Auto 2.4 X10*3/uL (1.2-4.9); Lymphocytes Percent Auto 36.2 % (20-40); Mean Corpuscular HGB Conc 34.7 g/dl (31.0-36.0); Mean Corpuscular Hemoglobin 29.7 pg (27.0-33.0); Mean Corpuscular Volume 85.5 fL (80.0-98.0); Monocytes Absolute Auto 0.5 X10*3/uL (0.1-1.2); Monocytes Percent Auto 7.6 % (2-11); Neutrophils Absolute Auto 3.6 x10*3/uL (2.0-8.3); Neutrophils Percent Auto 53.6 % (45-73); Platelet Count 201 X10*3/uL (160-400); Red Blood Count 5.73 X10*6/uL (4.60-5.80); Red Cell Distribution Width 12.9 % (11.0-16.0); White Blood Count 6.7 X10*3/uL (4.8-10.8)
[2025-01-11 11:30] LABS: Alanine Aminotransferase 62 U/L (0-40); Albumin Level 4.3 g/dL (3.5-5.0); Alkaline Phosphatase 112 U/L (39-117); Anion Gap 10 (12-20); Aspartate Amino Transferase 39 U/L (5-37); Bilirubin Total 0.8 mg/dL (0.0-1.0); Blood Urea Nitrogen 18 mg/dL (9-16); Calcium 9.1 mg/dL (8.4-10.2); Carbon Dioxide 27 mmol/L (22-29); Chloride 105 mmol/L (96-108); Cholesterol 145 mg/dL (<200); Estimated Glomerular Filt Rate > 60; Glucose Fasting 101 mg/dL (60-99); HDL Cholesterol 31 mg/dL (>40); LDL Cholesterol Calculated 87 mg/dL (<100); Potassium 4.4 mmol/L (3.3-5.1); Sodium 138 mmol/L (135-145); Total Protein 7.1 g/dL (6.5-8.0); Triglycerides 136 mg/dL (<150)
[2025-01-11 11:31] LABS: TSH reflex Free T4 2.47 uIU/mL (0.32-4.0)
== END 2025-01-11 08:17 | disposition home or self-care (01) ==
LOC: HO.HMGCLDS 08:16
PROVIDERS: PCP Nurse Practitioner Family; Visit Provider Nurse Practitioner Family
DX: Z00.00 Encounter for general adult medical examination without abnormal findings (principal); Z13.6 Encounter for screening for cardiovascular disorders
CPT/HCPCS: 36415; 80053; 80061; 81003; 82306; 84443; 85025

== ENCOUNTER 2025-01-19 10:49 | Outpatient (AMB) | payer BC, SELFPAY ==
[2025-01-19 10:50] VITALS: BP 126/80; PULSE 86; O2SAT 98; BMI 40.7
--- NOTE | 2025-01-19 10:50 | A.OFFPC_ITS ---
Vital Signs 01/19/25 10:50 Height 6 ft 4 in Weight 334 lb BMI 40.7 BP 126/80 Blood Pressure Location Rt brachial Position Sitting Pulse 86 Pulse Source Pulse Oximeter Pulse Oximetry (%) 98 Intake Visit Reasons: PE Accompanied by: Self / Same As Patient Allergies acetaminophen [ACETAMINOPHEN] Allergy (Severe, Verified 01/19/25 10:50) HIVES, SWOLLEN LIPS Sulfa (Sulfonamide Antibiotics) [SULFA (SULFONAMIDE ANTIBIOTICS)] Allergy (Intermediate, Verified 01/19/25 10:50) RASH chlorthalidone Adverse Reaction (Unknown, Verified 01/19/25 10:50) impotence Medication List - Last Reconciled 01/19/25 by ANAMIKA KeatingP- albuterol sulfate 90 mcg/actuation inhalation allopurinol 300 mg PO DAILY gabapentin 300 mg (3 x 100 mg) PO BEDTIME ibuprofen 600 mg PO Q6H PRN levocetirizine (Xyzal) 5 mg PO DAILY losartan 100 mg PO DAILY ropinirole ER 2 mg PO BEDTIME tadalafil (Cialis) 5 mg PO DAILY Tobacco use date assessed: 01/19/25 Dental Screening Dental Screen Date: 01/19/25 Did you have a dental visit in the last 12 months?: Yes Did you have a dental problem in the last 6 months where you did not have access to dental care?: No Was dental information given to patient?: Patient has dentist HPI PE HPI Details Chief Complaint The patient requests removal of an irritated skin tag. History of Present Illness The patient is a 34-year-old male presenting with a request for the removal of a skin tag in the right inguinal fold. The skin tag is located where his groin region meets the thigh and causes irritation. He denies any chest pain, shortness of breath, anxiety, depression, suicidal ideation, homicidal ideation, or abdominal pain. His liver enzymes are trending in the right direction as he is actively working on his diet and exercise regimen. Previous labs have been completed. Social History - The patient is making efforts toward d ietary changes and increased physical activity as part of his weight management plan. Health Maintenance - Discussion on lifestyle modifications including diet and exercise - Plan to enroll the patient in medical weight management Review of Systems - Cardiovascular: Denies chest pain - Respiratory: Denies shortness of breat h - Psychiatric: Denies anxiety, depressio n, suicidal ideation, and homicidal landon ation - Gastrointestinal: Denies abdominal vi n Physical Exam General: Cooperative, healthy appearing, comfortable, no acute distress and well developed Orientation: Patient oriented x3 Limitations: No limitations Head: Normal to inspection Ears: Hearing grossly normal bilaterally Nose: Normal external nose present Face and sinus: Normal facial exam Eyes: Appearance normal, both eyes and all related structures Neck: Normal visual inspection and Yes full ROM Respiratory: Normal respiratory effort and able to speak in complete sentences. Clear to auscultation bilaterally Cardiovascular: Regular rate and rhythm. Normal S1 and S2 GI: Normal to inspection. Soft to palpation and nontender Skin: No rashes or lesions noted, but a skin tag present in the right inguinal fold/crease region Neuro: Patient oriented x3 Extremities: Normal to inspection Results - Labs: Liver enzymes are improving Plan - Remove the skin tag located in the rig ht inguinal fold - Plan for follow-up in one year for a p hysical examination - Engage the patient in medical weight m anagement program Discussion Notes I discussed with the patient the procedure for removing the skin tag in the right inguinal fold. We reviewed the minor risks and benefits associated with the procedure, and the patient expressed understanding and consented to proceed. I also provided guidance on lifestyle improvements, emphasizing dietary and exercise modifications, and discussed plans to involve him in medical weight management. A follow-up physical exam is scheduled for one year, and I indicated that laboratories show progress in his liver enzyme levels. Patient Instructions - Follow through with the removal of the skin tag today - Continue with dietary and exercise mod ifications as discussed - Participate in a medical weight manage ment program - Return for a follow-up physical examin ation in one year - Monitor for any significant changes in health and return sooner if necessary [facility] Medical History (Updated 01/19/25 @ 11:37 by Gerald Dunaway [facility]) Annual physical exam ELINA on CPAP Nocturnal leg cramps Hypersomnia Snoring Mid back pain on right side Lower back pain Erectile dysfunction Overweight Alopecia HTN (hypertension) Vitamin D deficiency Depression Surgical History History of wisdom tooth extraction Family History Father Diverticulitis Arthritis Mother Bipolar disorder HTN (hypertension) Maternal Grandmother No problems noted. Maternal Grandfather Stroke Unknown family medical history Paternal Grandmother No problems noted. Paternal Grandfather Unknown family medical history Brother No problems noted. 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 1. Little interest or pleasure in doing things: several days 2. Feeling down, depressed, or hopeless: several days 3. Trouble falling or staying asleep, or sleeping too much: several days 4. Feeling tired or having little energy: more than half the days 5. Poor appetite or overeating: several days 6. Feeling bad about yourself - or that you are a failure or have let yourself or your family down: several days 7. Trouble concentrating on things, such as reading the newspaper or watching television: several days 8. Moving or speaking so slowly that other people could have noticed. Or the opposite - being so fidgety or restless that you have been moving around a lot more than usual: several days 9. Thoughts that you would be better off or of hurting yourself in some way: not at all Total score: 9 Depression Screening Interpretation: Positive Depression Screening Done: Yes 27852 - PHQ-9 Billing: Yes Source: Developed by Drs. Seamus Dickerson, Tiana Balbuena, Aki Prater and colleagues, with an educational perico from [employer]. Thrive Questionnaire Date Thrive assessed: 01/19/25 I am a: Patient What is your living situation today?: I have a steady place to live Within the past 12 months, did the food you bought not last and you didn't have the money to get more?: Never true Within the past 12 months, did you worry whether your food would run out before you got money to buy more?: Never true Do you have trouble paying for medicines?: No Do you have trouble getting transportation to medical appointments?: No Do you have trouble paying your heating and electricity bill?: No Do you have trouble taking care of your child, family member or friend?: No Do you have trouble with day-to-day activities such as bathing, preparing meals, shopping, managing finances, etc.?: No Are you currently unemployed and looking for a job?: No Are you interested in more education?: No Please select the resources that you would like help with: None Currently or been in a relationship where the following occur: No concerns reported THRIVE Score: 0 AUDIT C Alcohol Use Questionnaire (AUDIT-C) 1. How often do you have a drink containing alcohol?: 2-4 times a month 2. How many drinks containing alcohol do you have on a typical day when you are drinking?: 1 or 2 3. How often do you have six or more drinks on one occasion?: Never Total Score: 2 Score Reviewed/Action Taken: Yes RANDY-7 AMB Questionnaire RANDY-7 Date RANDY - 7 assessed: 01/19/25 Feeling nervous, anxious, or on edge: 1 = Several days Not being able to stop or control worryin = Several days Worrying too much about different things: 1 = Several days Trouble relaxin = Several days Being so restless that it is hard to sit still: 1 = Several days Becoming easily annoyed or irritable: 1 = Several days Feeling afraid as if something awful might happen: 0 = Not at all Total RANDY-7 score (0-4 normal; 5-9 mild; 10-14 moderate; 15-21 severe): 6 Source: Developed by Drs. Seamus Dickerson, Tiana Balbuena, Aki Prater and colleagues, with an educational perico from [employer]. RANDY-7 Assessment Billing RANDY-7 Assessment Tool: RANDY-7 Assessment 37090 Physical exam (Primary Care) Vital Signs: Last Vital Signs Pulse 86 01/19/25 10:50 BP 126/80 01/19/25 10:50 Pulse Ox 98 01/19/25 10:50 BMI result Body Mass Index 40.7 Tobacco/Smoking Status: Tobacco use Status Tobacco use date assessed 01/19/25 01/19/25 10:52 Patient Tobacco Use Status Never used Tobacco 01/19/25 10:52 e-Cigarette/Vaping Use Never Used 01/19/25 10:52 PHQ-9: PHQ-9 Score PHQ-9: Total score 9 01/19/25 10:52 Depression Screening Interpretation: Positive Thrive Assessment: Date of Thrive Assessment Date Thrive assessed 01/19/25 01/19/25 10:52 Currently or been in a relationship where the following occur: No concerns reported Office Procedures Skin Tag Removal Skin tag removal performed by: Gerald Dunaway Informed consent given: Yes Consent signed: No Location: inguinal crease Preparation: alcohol and iodine Hemostasis: pressure Patient tolerated procedure: well Complications: No Additional details: pt educated on monitoring for any s/s of infection, pt tolerated the procedure very well Coding Level of Care Code Est Pt Prev Care 18-39y(56991) Diagnoses Overweight E66.3 Annual physical exam Z00.00 Skin tag L91.8 Additional Codes RANDY-7 Assessment Billing - RANDY-7 Assessment Tool: RANDY-7 Assessment 33797 ([id number]) PHQ-9 - 42549 - PHQ-9 Billing: Yes ([id number]) Assessment & Plan Assessment & Plan (1) Overweight: Code(s): E66.3 - Overweight Category: Medical (2) Annual physical exam: Code(s): Z00.00 - Encounter for general adult medical examination without abnormal findings Category: Medical (3) Skin tag: Code(s): L91.8 - Other hypertrophic disorders of the skin Category: Medical Plan . Orders: Referrals Medical Weight Management Referral E66.3 - Overweight
== END 2025-01-19 11:34 | disposition home or self-care (01) ==
PROVIDERS: PCP Nurse Practitioner Family; Visit Provider Nurse Practitioner Family
DX: E66.3 Overweight (principal); Z00.00 Encounter for general adult medical examination without abnormal findings; L91.8 Other hypertrophic disorders of the skin

== ENCOUNTER → 2025-01-19 10:49 | Outpatient (BNVA) | payer BC, SELFPAY | PROVIDERS: PCP Nurse Practitioner Family; Visit Provider Nurse Practitioner Family | DX: Z00.00 Encounter for general adult medical examination without abnormal findings (principal); E66.3 Overweight; Z68.41 Body mass index [BMI] 40.0-44.9, adult; L91.8 Other hypertrophic disorders of the skin | CPT/HCPCS: 96127 ==

== ENCOUNTER 2025-02-01 09:57 | Outpatient (AMB) | payer BC, SELFPAY ==
--- NOTE | 2025-02-01 11:11 | A.OFFVIS_ITS ---
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 [facility] *SEE COMMENTS* Allergies acetaminophen [ACETAMINOPHEN] Allergy (Severe, Verified 02/01/25 11:11) HIVES, SWOLLEN LIPS Sulfa (Sulfonamide Antibiotics) [SULFA (SULFONAMIDE ANTIBIOTICS)] Allergy (Intermediate, Verified 02/01/25 11:11) RASH chlorthalidone Adverse Reaction (Unknown, Verified 02/01/25 11:11) impotence Medication List - Last Reconciled 02/01/25 by Min Mobley MD albuterol sulfate 90 mcg/actuation inhalation allopurinol 300 mg PO DAILY ibuprofen 600 mg PO Q6H PRN levocetirizine (Xyzal) 5 mg PO DAILY losartan 100 mg PO DAILY ropinirole ER 2 mg PO BEDTIME tadalafil (Cialis) 5 mg PO DAILY HPI HPI 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 [facility] *SEE COMMENTS*: Details: Start time: 10.55am, End time: 11.55am ?I spent 50 minutes speaking with the patient on the phone plus an additional 10 minutes reviewing and updating records for a total of 60 minutes HPI Comments Details: Previous weight loss efforts: [facility] [place] (lost 25lbs) Wakes up: 6.45am, Sleeps: 10pm Breakfast: 8am (Premier preamade protein shake, or cereal) Lunch: 11-12pm (Pure or Roberts or Fit Crunch protein bar, or beef jerky) Dinner: 6pm (chicken tenders, turkey, sausages, beef with vegetables) Snacks: 2-3pm (chips, crackers, fruits), Exercise: Has home [employer] Fluids: Coffee (3-4 cups/day with skim milk and Stevia), tea: (3 cups per day with honey), soda: Coke zero, juice: rarely, ETOH: 1-2 drinks per week PFSH Medical History (Updated 02/01/25 @ 11:17 by Min Mobley MD) Anxiety DJD (degenerative joint disease) Hyperuricemia Morbid obesity Annual physical exam ELINA on CPAP Nocturnal leg cramps Hypersomnia Snoring Mid back pain on right side Lower back pain Erectile dysfunction Overweight Alopecia HTN (hypertension) Vitamin D deficiency Depression Surgical History History of wisdom tooth extraction Family History (Updated 02/01/25 @ 08:15 by Tonie Dozier [facility]) Father Diverticulitis Arthritis Mother Bipolar disorder HTN (hypertension) Maternal Grandmother No problems noted. Maternal Grandfather Stroke Unknown family medical history Paternal Grandmother Stroke Paternal Grandfather Unknown family medical history Brother No problems noted. 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/hazards: No Cognitive needs: No Hearing needs: No Vision needs: Yes Telehealth Telehealth Telehealth Platform: Telephone Location of provider rendering services: practice address Location of patient: address on file Patient Identification confirmed using: Name, : Yes Telehealth method: voice only Patient verbally consented to treatment: Yes Patient verbally consented to billing insurance company: Yes Patient informed of any privacy concerns related to visit: Yes Minutes spent on Phone/Video with Pt.: 60 Assessment & Plan Assessment & Plan (1) Morbid obesity: Code(s): E66.01 - Morbid (severe) obesity due to excess calories Category: Medical Plan: 1. You will receive a link of our software rasta to generate an individualized nutritional and exercise plan specific for you. Please send me a screenshot of the plans you will generate Meal to include lean meat (beef, fish, pork, turkey, chicken), or luxembourgish yogurt, or egg whites, or beans with a salad with olive oil and fruits (berries, pears, apples, kiwi). Avoid salt, breads, potatoes, rice, pasta, desserts. ?2. If you choose shakes, each shake would be drunk slowly, like coffee in a period of 2 hours. ?3. If you choose bars, cut each bar in 4 pieces and eat each piece in 30min ?to make each bar last 2 hours. ?4. I emphasized the importance of measuring accurately the food portion and measure it when serving the food in plate ?5. The meal portions include a specific number of forks of meat and salad. You always eat the meat portion but you can replace up to half of salad/vegetables portion with rice, potatoes or pasta, or a fruit ?if you like. The less you do it the better weight loss will be. ?6. One full-size fork is what it can be scooped on the fork without falling aside and not what can be bit with the fork. Use regular forks like those you find in a typical restaurant. ?7.? Please buy the body composition scale we discussed and send me weight measurements as soon as possible and then once a week. Always include your diet and exercise plan. ?8. Goal is to lose at least 1.5-2lbs per week ?9. Goal to lose at least 10% of your weight, which is about 34lbs. Minimum weight goal: 303lbs before surgery 10. Please follow the diet plan exactly without any change. If you don't like something about the plan or you feel hungry you need to communicate with me so I can help you revise the plan through the rasta. You should not change the plan yourself.
== END 2025-02-01 11:55 | disposition home or self-care (01) ==
LOC: HO.HBS 09:57
PROVIDERS: PCP Nurse Practitioner Family; Visit Provider Surgery
DX: E66.01 Morbid (severe) obesity due to excess calories (principal)
CPT/HCPCS: 99205

== ENCOUNTER 2025-02-06 08:30 | Outpatient (AMB) | payer BC, SELFPAY ==
--- NOTE | 2025-02-06 08:37 | A.OFFVIS_ITS ---
VS Expanded 02/06/25 08:38 02/06/25 08:49 Height 6 ft 4 in 6 ft 4 in Weight 324 lb 8.327 oz 324 lb BMI 39.5 39.4 Intake Visit Reasons: obesity Allergies acetaminophen [ACETAMINOPHEN] Allergy (Severe, Verified 02/01/25 11:11) HIVES, SWOLLEN LIPS Sulfa (Sulfonamide Antibiotics) [SULFA (SULFONAMIDE ANTIBIOTICS)] Allergy (Intermediate, Verified 02/01/25 11:11) RASH chlorthalidone Adverse Reaction (Unknown, Verified 02/01/25 11:11) impotence Nutrition Presentation Details: Pt presents for 6 m MNT f/u for obesity Pt reports following meal replacement diet rx by weight management program , to reset , started it last week 2 prot shakes, 1/2 protein bar and 1 meal consisting of 6 oz protein/non starchy veg Drinks 16-24 oz of water + tea/coffee denies constipation /diarrhea Reports taking a daily multivitamin Pros: structured meal pattern challenges: eating slowly/weekend routine BS Monitoring Most Recent Diabetes Results: Cholesterol 145 mg/dL (<200) 01/11/25 HDL Cholesterol 31 mg/dL (>40) L 01/11/25 Triglycerides 136 mg/dL (<150) 01/11/25 Creatinine 1.12 mg/dL (0.5-1.4) 01/11/25 Blood Urea Nitrogen 18 mg/dL (9-16) H 01/11/25 Sodium 138 mmol/L (135-145) 01/11/25 Potassium 4.4 mmol/L (3.3-5.1) 01/11/25 Chloride 105 mmol/L (96-108) 01/11/25 Carbon Dioxide 27 mmol/L (22-29) 01/11/25 Calcium 9.1 mg/dL (8.4-10.2) 01/11/25 AST 39 U/L (5-37) H 01/11/25 ALT 62 U/L (0-40) H 01/11/25 Total Protein 7.1 g/dL (6.5-8.0) 01/11/25 Albumin 4.3 g/dL (3.5-5.0) 01/11/25 IYC-Xqrrrec-Mh.Jeor Equation Height: 6 ft 4 in Weight: 324 lb Resting Metabolic Rate: 2502.55 Calculated Activity Level: Sedentary Calories Needed to Maintain Weight: 3003.06 [facility] Medical History (Updated 02/01/25 @ 11:17 by Min Mobley MD) Anxiety DJD (degenerative joint disease) Hyperuricemia Morbid obesity Annual physical exam ELINA on CPAP Nocturnal leg cramps Hypersomnia Snoring Mid back pain on right side Lower back pain Erectile dysfunction Overweight Alopecia HTN (hypertension) Vitamin D deficiency Depression Surgical History History of wisdom tooth extraction Family History (Updated 02/01/25 @ 08:15 by Tonie Dozier [facility]) Father Diverticulitis Arthritis Mother Bipolar disorder HTN (hypertension) Maternal Grandmother No problems noted. Maternal Grandfather Stroke Unknown family medical history Paternal Grandmother Stroke Paternal Grandfather Unknown family medical history Brother No problems noted. 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/hazards: No Cognitive needs: No Hearing needs: No Vision needs: Yes Assessment & Plan Assessment & Plan (1) Obesity (BMI 30-39.9): Code(s): E66.9 - Obesity, unspecified Category: Medical Plan: Used wt : 140 kg, 147 kg ( 12/2023), 144 kg (07/2024), 147 kg (01/2025 Est kcal as per MSJ: 2500- 3000 (40% carb, 30% fat/prot) Est fluid needs: 3500 ml/d (25 ml/kg bw) Rec fiber: increase to 8-10 g per day and gradually increase to 35 g or as tolerated Rec Na: < 2000 mg /d Educate patient on: (R= Reviewed, V = verbalizes understanding N/R= Needs review N/A= not applicable) * Food sources of carbohydrates and serving adequate serving sizes : R V * Difference between complex carbohydrates and simple carbohydrates, role of fiber: R V * Differences between fats (MUFA/PUFA/saturated fats, trans fats) and food sources of various fats: V * Food sources of sodium and salt and healthy modifications for heart health and kidney health: R * Vitamins and minerals: R * How to interpret food labels: R V * Healthy Plate method concept: R V * Physical activity: benefits and precaution: R V * REVIEWED: measuring food portions, reducing calories from empty calorie foods (those higher in fat/sugars)- continue to monitor total caloric intake * REVIEWED: Choosing lower fat food options , difference between calories from fat in foods/food portions * Discussed following gluten free diet and reducing food coloring to lessen inflammation * choosing meal replacement once a day consistently to promote weight loss: R Patient Instructions: Choose lean proteins sources of foods, reducing on total fat intake (have fish at least twice a week) Coding Level of Care Code Nutr Indiv Subseq (60202) Diagnoses Obesity (BMI 30-39.9) E66.9 Time Spent (min) 30
[2025-02-06 08:38] VITALS: BMI 39.5
--- OUTSIDE RECORDS SUMMARY | 2025-02-06 08:44 | XMS_ITS | Encounter Summary ---
Author Organization [facility] Address [address] [place] [address] Care Team Providers Care Director Of Security Name Role Phone Ekta Luevano Md, MD Primary Care Provider Unavailable Encounter Details Date Type Department Care Team Description 02/12/2018 Transfer Records Medical Records [address] [place] [id number] Abstract, Provider Social History Tobacco Use Types Packs/Day Years Used Date Smoking Tobacco: Never Smokeless Tobacco: Never Alcohol Use Standard Drinks/Week Comments Yes 2 (1 standard drink = 0.6 oz pur e alcohol) Sex Assigned at Date Recorded Not on file documented as of this encounter Plan of Treatment Not on file documented as of this encounter Visit Diagnoses Not on filedocumented in this encounter Care Teams Director Of Security Relationship Specialty Start Date End Date Ekta Luevano MD, MD PCP - General Internal Medicine 01/26/18 documented as of this encounter
--- OUTSIDE RECORDS SUMMARY | 2025-02-06 08:44 | XMS_ITS | Encounter Summary ---
Author Organization [facility] Address [address] [place] [address] Care Team Providers Care Trimming Inspector Name Role Phone Ekta Luevano Md, MD Primary Care Provider Unavailable Encounter Details Date Type Department Care Team Description 02/16/2018 Release of Information Medical Records [address] [place] [id number] Abstract, Provider Social History Tobacco Use Types [...] on filedocumented in this encounter Care Teams Trimming Inspector Relationship Specialty Start Date End Date Ekta Luevano MD, MD PCP - General Internal Medicine 01/26/18 documented as of this encounter
[2025-02-06 08:49] VITALS: BMI 39.4
== END 2025-02-06 09:04 | disposition home or self-care (01) ==
PROVIDERS: PCP Nurse Practitioner Family; Visit Provider Dietitian, Registered
DX: E66.9 Obesity, unspecified (principal)

== ENCOUNTER → 2025-02-06 08:30 | Outpatient (BNVA) | payer BC, SELFPAY | PROVIDERS: PCP Nurse Practitioner Family; Visit Provider Dietitian, Registered | DX: E66.9 Obesity, unspecified (principal); Z68.39 Body mass index [BMI] 39.0-39.9, adult; Z71.3 Dietary counseling and surveillance | CPT/HCPCS: 97803 ==

== ENCOUNTER 2025-03-23 07:56 | Outpatient (AMB) | payer BC, SELFPAY ==
--- OUTSIDE RECORDS SUMMARY | 2025-03-23 08:01 | XMS_ITS | Clinical Summary ---
Author Organization [facility] Address [address] [place] [address] Care Team Providers Care Perlite Grinder Name Role Phone Ekta Luevano Md, MD Primary Care Provider Unavailable Allergies Active Allergy Reactions Severity Noted Date Comments Sulfa Drugs 02/11/2018 Medications Medication Sig Dispensed Refills Start Date End Date Status Cetirizine HCl 10 MG Cap Take 10 mg by mouth daily. 0 Active LOSARTAN POTASSIUM OR Take 10 mg by mouth daily. 0 Active Active Problems Problem Noted Date ELINA (obstructive sleep apnea) 09/08/2018 Pneumonia due to infectious organism Gastroesophageal reflux disease without esophagitis 02/11/2018 Social History Tobacco Use Types Packs/Day Years Used Date Smoking Tobacco: Never Smokeless Tobacco: Never Alcohol Use Standard Drinks/Week Comments Yes 2 (1 standard drink = 0.6 oz pur e alcohol) Sex Assigned at Date Recorded Not on file Last Filed Vital Signs Vital Sign Reading Time Taken Comments Blood Pressure 122/70 03/11/2019 8:30 AM EDT Pulse 82 03/11/2019 8:30 AM EDT Temperature - - Respiratory Rate 16 03/11/2019 8:30 AM EDT Oxygen Saturation 97% 03/11/2019 8:30 AM EDT Inhaled Oxygen Concentration - - Weight 119.7 kg (264 lb) 03/11/2019 8:30 AM EDT Height 193 cm (6' 4 ) 03/11/2019 8:30 AM EDT Body Mass Index 32.14 03/11/2019 8:30 AM EDT Plan of Treatment Health Maintenance Due Date Last Done Comments Covid-19 Vaccine (#1) 1988 BASELINE HEALTH EXAM 18-39 2007 DTAP/TDAP/TD (1 - Tdap) 2007 CHOLESTEROL SCREENING 2008 BMI CHECK/ADVISE 11/30/2024 INFLUENZA (Season Ended) 2025 PNEUMOCOCCAL VACCINE FOR HIGH RISK PATIENTS (#1) 03/07 Care Teams Perlite Grinder Relationship Specialty Start Date End Date Ekta Luevano MD, MD PCP - General Internal Medicine 01/26/18
--- OUTSIDE RECORDS SUMMARY | 2025-03-23 08:01 | XMS_ITS | Encounter Summary ---
Author Organization [facility] Address [address] [place] [address] Care Team Providers Care Sample Maker Original Name Role Phone Ekta Luevano Md, MD Primary Care Provider Unavailable Encounter Details Date Type Department Care Team Description 02/12/2018 Transfer Records Medical Records [address] [place] [id number] Abstract, Provider Social History Tobacco Use Types [...] on filedocumented in this encounter Care Teams Sample Maker Original Relationship Specialty Start Date End Date Ekta Luevano MD, MD PCP - General Internal Medicine 01/26/18 documented as of this encounter
[2025-03-23 08:02] VITALS: BP 128/76; PULSE 78; O2SAT 98; BMI 39.6
--- NOTE | 2025-03-23 08:02 | MHC.OFFVIS ---
Vital Signs 03/23/25 08:02 Height 6 ft 4 in Weight 325 lb 4 oz BMI 39.6 BP 128/76 Blood Pressure Location Rt brachial Position Sitting Pulse 78 Pulse Source Pulse Oximeter Pulse Oximetry (%) 98 Oxygen Delivery Method Room Air Intake Visit Reasons: Follow Up 6mo Intake Note: Patient presents follow up ELINA. Dentistry consult in chart. Not using CPAP. Allergies acetaminophen [ACETAMINOPHEN] Allergy (Severe, Verified 03/23/25 08:05) HIVES, SWOLLEN LIPS Sulfa (Sulfonamide Antibiotics) [SULFA (SULFONAMIDE ANTIBIOTICS)] Allergy (Intermediate, Verified 03/23/25 08:05) RASH chlorthalidone Adverse Reaction (Unknown, Verified 03/23/25 08:05) impotence HPI Comments Details: 35 y/o male with HTN and NAFLD is here for a follow up of ELINA. HST was c/w sleep apnea AHI 9 REM AHI 30 O2 etta 81%. He goes to bed at 10pm and wakes up at 6am with one bathroom break, he uses his oral appliance from the [facility] as he could not tolerate the CPAP mask, it used to fall off, or he would subconsciously pulled it off in his sleep and tried 4 different mask, then he gave up. He says he gets really good sleep and sleeps much better now. He has a genetic disorder, but does not know what it is. He has NAFLD and HTN. Patient education provided today about monitoring and compliance of AHI, not possible with mouth gaurd and his Mallampti score is 4 with multiple co-morbities, he may need to look into Inspire therapy and may be a good candidate as an oral appliance is not sufficient for assessment of AHI and Oxygen desaturation. He has lost 20 lbs does peleton 3x week for 30min and walks daily on a strict regiment with med. weight management. He never takes an afternoon nap anymore. RLS He is doing well on ropinirole XR 2mg qhs and tried gabapentin which did not help. Denies symptoms at night. BMI is elevated 39.6, weight is 325lbs.He continues to improve his diet with strict meal planning, and drinks plenty of water. His mood is stable. He drinks alcohol socially 1-2 drinks a month, no smoking tobacco, no edibles, vaping. [facility] Medical History Anxiety DJD (degenerative joint disease) Hyperuricemia Morbid obesity Annual physical exam ELINA on CPAP Nocturnal leg cramps Hypersomnia Snoring Mid back pain on right side Lower back pain Erectile dysfunction Overweight Alopecia HTN (hypertension) Vitamin D deficiency Depression Surgical History History of wisdom tooth extraction Family History Father Diverticulitis Arthritis Mother Bipolar disorder HTN (hypertension) Maternal Grandmother No problems noted. Maternal Grandfather Stroke Unknown family medical history Paternal Grandmother Stroke Paternal Grandfather Unknown family medical history Brother No problems noted. 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/hazards: No Cognitive needs: No Hearing needs: No Vision needs: Yes Physical Exam Vital Signs: Last Vital Signs Pulse 78 03/23/25 08:02 BP 128/76 03/23/25 08:02 Pulse Ox 98 03/23/25 08:02 Oxygen Delivery Method Room Air 03/23/25 08:02 BMI result Body Mass Index 39.6 Const General: cooperative and healthy appearing Nutritional Appearance: obese morbidly obese Orientation/consciousness: oriented to person and patient oriented x3 Limitations: no limitations HEENT Head: Yes normocephalic and Yes atraumatic Eyes Pupils: Equal, round and reactive pupils present Neuro Other: Mallampti score is 4. Feet - out-toeing -femoral retroversion?- Degenerative Joint Disease. Gait is waddling. General: oriented to person, patient oriented x3, gait normal, moves all extremities and no focal motor deficits Cranial nerves: Yes Facial sensation intact/muscles of mastication intact, Yes Equal, round and reactive pupils present, Yes Normal accommodation reflex present, Yes Bilaterally intact EOM present, Yes Nystagmus not present, Yes Normal facial strength present, Yes Midline tongue present, Yes Ability to bilaterally rotate head present and Yes Ability to bilaterally elevate shoulders present Gait exam (Neuro): Other gait observations present (waddling due to out - toeing) Motor exam (neuro): 5/5 motor strength present throughout and Normal motor muscle tone present throughout Deep tendon reflexes (DTR's): Right triceps reflex intensity grade: 2+, Left triceps reflex intensity grade: 2+, Rt Biceps (C5, C6): 2+, Left biceps reflex intensity grade: 2+, Right brachioradialis reflex intensity grade: 2+, Left brachioradialis reflex intensity grade: 2+, Right patellar reflex intensity grade: 2+, Left patellar reflex intensity grade: 2+, Right ankle reflex intensity grade: 2+ and Left ankle reflex intensity grade: 2+ Coordination: [id number] test normal Results Reviewed Results Reviewed: PSG April 2024 c/w sleep apnea AHI was 9 and oxygen Etta to 81%, REM AHI was 30/hr. CPAP at 5-20cm H20 therapy recommended. Assessment & Plan Assessment & Plan (1) ELINA on CPAP: Code(s): G47.33 - Obstructive sleep apnea (adult) (pediatric) Category: Medical (2) Restless legs syndrome (RLS): Code(s): G25.81 - Restless legs syndrome Category: Medical (3) DJD (degenerative joint disease): Code(s): M19.90 - Unspecified osteoarthritis, unspecified site Category: Medical Qualifiers: Laterality: bilateral Osteoarthritis location: ankle Osteoarthritis type: primary Qualified Code(s): M19.071 - Primary osteoarthritis, right ankle and foot; M19.072 - Primary osteoarthritis, left ankle and foot (4) Nocturnal leg cramps: Code(s): G47.62 - Sleep related leg cramps Category: Medical (5) Obesity (BMI 30-39.9): Code(s): E66.9 - Obesity, unspecified Category: Medical Plan RLS Continue ropinirole XR 2mg qhs Discontinued Gabapentin made him groggy ELINA Continue Oral Device as needed, however will refer to ENT for Inspire evaluation, as he is a good candidate for therapy. Orders: Referrals Ear/Nose/Throat Referral E66.3 - Overweight, G47.33 - Obstructive sleep apnea (adult) (pediatric), J06.9 - Acute upper respiratory infection, unspecified Patient Instructions: Sleep Hygiene provided: set a scheduled bedtime and wake time to help regulate the circadian rhythm and balance the release of pituitary hormones. Sleep in a dark room, temperatures below 68 degrees, and no devices n bed. Limit caffeinated products 6 hours prior to bed, and limit fluids 2-4 hours prior to bed. Gentle night yoga, diffusing essential oils, and playing soft music can be relaxing. Patient Education provieded re: sleep apnea, and patient would like to trial Inspire therapy, he needs to be monitored for AHI. Fatigue, continue to reduce transfats, NAFLD, no alcohol! DJD- f/u with PCP. RLS - continue Ropinorole as this has been effective. Coding Level of Care Code Est Pt Level 4 (57025) Diagnoses ELINA on CPAP G47.33 Restless legs syndrome (RLS) G25.81 Primary osteoarthritis of both ankles M19.071; M19.072 Laterality: bilateral Osteoarthritis location: ankle Osteoarthritis type: primary Nocturnal leg cramps G47.62 Obesity (BMI 30-39.9) E66.9
== END 2025-03-23 08:41 | disposition home or self-care (01) ==
LOC: HO.HSMS 07:57
PROVIDERS: PCP Nurse Practitioner Family; Visit Provider Physician Assistant Medical
DX: G47.33 Obstructive sleep apnea (adult) (pediatric) (principal); G25.81 Restless legs syndrome; M19.071 Primary osteoarthritis, right ankle and foot; M19.072 Primary osteoarthritis, left ankle and foot; G47.62 Sleep related leg cramps; E66.9 Obesity, unspecified
CPT/HCPCS: 99214

== ENCOUNTER 2025-04-07 09:22 | Outpatient (AMB) | payer BC, SELFPAY ==
--- NOTE | 2025-04-07 09:25 | MHC.OFFVIS ---
Vital Signs 04/07/25 09:26 Height 6 ft 4 in Weight 316 lb 2.286 oz BMI 38.5 BP 140/77 H Blood Pressure Location Lt brachial Position Sitting Pulse 86 Pulse Source Pulse Oximeter Pulse Oximetry (%) 96 Oxygen Delivery Method Room Air Intake Visit Reasons: 8 mo f/u r/s 01/31/25 Intake Note: Patient follow up for SALINAS, lab and US results. Patient cc: None today Allergies acetaminophen [ACETAMINOPHEN] Allergy (Severe, Verified 04/07/25 09:27) HIVES, SWOLLEN LIPS Sulfa (Sulfonamide Antibiotics) [SULFA (SULFONAMIDE ANTIBIOTICS)] Allergy (Intermediate, Verified 04/07/25 09:27) RASH chlorthalidone Adverse Reaction (Unknown, Verified 04/07/25 09:27) impotence HPI HPI 8 mo f/u r/s 01/31/25: Details: Assessment & Plan (1) SALINAS (nonalcoholic steatohepatitis): Comment: BASELINE LABS: 05/2018 liver functions normal, 06/2018 autoimmune workup and hepatitis screening negative, initial alpha fetoprotein 1.1, 2. Elevated bilirubin - R17, Gilbert's syndrome, direct bili is normal CURRENT LABS 12/23/22 Plt Count 183 Total Bilirubin 0.9 AST 40 H ALT 91 H Alkaline Phosphatase 118 H 12/23/22 Fasting Glucose 103 H US OF THE ABD 10/16/22 IMPRESSION: 1. Hepatic steatosis with focal area of fatty sparing near the gallbladder. ? 2. Liver elastography: Median liver stiffness measures 1.82 m/s? which corresponds to cACLD (suggestive). Code(s): K75.81 - Nonalcoholic steatohepatitis (SALINAS) Category: Medical Plan He continues to do well. Took up Pilates as a form of exercise and is enjoying it. His weight is down a little bit which is good for his overall health in his liver health. He has no new health concerns to report. He is aware that he is due for more screening and will go for the lab work soon and the ultrasound will be scheduled. We review his last labs and ultrasound from January and he was trending down probably reflecting the weight loss and there were no suspicious findings on his ultrasound. Return office visit in 6 months Orders: Orders Comprehensive Met. Panel Today K75.81 - Nonalcoholic steatohepatitis (SALINAS) TSH reflex Free T4 Today K75.81 - Nonalcoholic steatohepatitis (SALINAS) US abdomen complete Today K75.81 - Nonalcoholic steatohepatitis (SALINAS) LABS: Laboratory Tests 01/11/25 08:20 WBC 6.7 Hgb 17.0 Hct 49.0 Plt Count 201 D Estimated GFR > 60 Total Bilirubin 0.8 AST 39 H ALT 62 H Alkaline Phosphatase 112 TSH 2.47 ULTRASOUND OF THE ABDOMEN 10/07/2024 FINDINGS: PANCREAS: The visualized pancreas appears unremarkable but the pancreatic tail is obscured by bowel gas. ABDOMINAL AORTA: The proximal, mid, and distal segments are normal in caliber. INFERIOR VENA CAVA: Visualized portions are normal. LIVER: Liver is enlarged measuring over 17.5 cm in greatest length and demonstrates increased echogenicity consistent with hepatic steatosis. The liver contour is normal. No focal hepatic lesion. There is no intrahepatic biliary duct dilatation seen. GALLBLADDER: The gallbladder is physiologically distended without evidence of stones, sludge, polyps, wall thickening or pericholecystic fluid. There is some comet-tail shadowing with findings consistent with adenomyomatosis. COMMON BILE DUCT: Normal in caliber measuring 0.3 cm in diameter. RIGHT KIDNEY: Normal. No hydronephrosis. No renal calculi or focal parenchymal lesions. The kidney measures 12.2 cm in maximum dimension. LEFT KIDNEY: Normal. No hydronephrosis. No renal calculi or focal parenchymal lesions. The kidney measures 12.1 cm in maximum dimension. SPLEEN: The spleen is enlarged measuring 15.5 cm in maximum dimension. FREE FLUID: None. US/US abdomen complete IMPRESSION: 1. Enlarged fatty liver with splenomegaly. 2. Adenomyomatosis of the gallbladder. TODAY'S VISIT Patient has been lost to follow-up since 07/2024 He had a weight spike in the Winter but then he went to [facility] and lost the weight again. He has not had time for pilates, but is using his home gym and treadmill. He is not interested in bariatric surgery. This is not for everyone. He is also unsure of using GLP-1. He is doing well on his CPAP for ELINA. ROV 6 mos. [facility] Medical History (Updated 04/07/25 @ 09:30 by GURWINDER Rodriguez) ELINA on CPAP Transaminitis Right otitis media Right acute otitis media Family history of psoriatic arthritis Upper respiratory tract infection Screening PSA (prostate specific antigen) Annual physical exam Anxiety DJD (degenerative joint disease) Hyperuricemia Morbid obesity Nocturnal leg cramps Hypersomnia Snoring Mid back pain on right side Lower back pain Erectile dysfunction Overweight Alopecia HTN (hypertension) Vitamin D deficiency Depression Surgical History History of wisdom tooth extraction Family History Father Diverticulitis Arthritis Mother Bipolar disorder HTN (hypertension) Maternal Grandmother No problems noted. Maternal Grandfather Stroke Unknown family medical history Paternal Grandmother Stroke Paternal Grandfather Unknown family medical history Brother No problems noted. 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/hazards: No Cognitive needs: No Hearing needs: No Vision needs: Yes Review of Systems Const Denies fatigue, Denies fever(s), Denies night sweats, Denies poor appetite, Reports weight gain and Reports weight loss Eyes Details: glasses Reports requires corrective lenses ENT Reports Normal hearing present, Denies dental pain, Denies dysphagia, Denies hearing loss, Denies mouth pain, Denies odynophagia, Denies throat swelling, Denies tongue swelling and Reports other (Dentition adequate) Card Reports no additional complaints Resp Reports no additional complaints GI Details: Denies abdominal pain, Denies melena, Denies bloating, Denies hematochezia, Denies constipation, Denies GI cramping, Denies dysphagia, Denies excessive flatus, Denies early satiety, Denies heartburn, Denies diarrhea, Denies nausea, Denies odynophagia, Denies vomiting and Denies hematemesis Skin/Breast Denies pruritus, Denies lesions, Denies rash and Denies jaundice Neuro Reports Normal hearing present and Denies Abnormal speech present Endo Denies fatigue Aller/Immun Denies throat swelling and Denies tongue swelling Physical Exam Vital Signs: Last Vital Signs Pulse 86 04/07/25 09:26 BP 140/77 H 04/07/25 09:26 Pulse Ox 96 04/07/25 09:26 Oxygen Delivery Method Room Air 04/07/25 09:26 BMI result Body Mass Index 38.5 Const General: cooperative, no acute distress, well developed and well groomed Nutritional Appearance: well nourished and obese Orientation/consciousness: oriented to person, oriented to place and oriented to time Limitations: No language barrier, ambulation with cane, ambulation with walker and wheelchair HEENT Head: Yes normocephalic and Yes atraumatic Eyes General: appearance normal, both eyes and all related structures Pupils: Equal, round and reactive pupils present Neck Neck: Yes normal visual inspection and Yes no lymphadenopathy Thyroid: Thyroid normal Resp Effort & Inspection: normal respiratory effort and able to speak in complete sentences Auscultation: clear to auscultation bilaterally Cardio Rate: regular rate Rhythm: regular rhythm Heart sounds: Normal, physiologic split S2 sound present Peripheral pulses: radial pulses present and posterior tibial pulses present GI Inspection: No distended, Yes Abdominal panniculus present and Yes obesity Palpation (GI): Soft to palpation, nontender, no guarding, not rigid and No hepatosplenomegaly present Percussion: Yes normal to percussion Auscultation: normal bowel sounds Rectal Exam - Male: Yes deferred Skin General skin exam: no rashes or lesions noted, turgor normal, skin not dry, no jaundice, No spider nevi and no striae Rashes: no rashes Nails: normal Neuro General: oriented to person, oriented to place and oriented to time Cranial nerves: Yes Equal, round and reactive pupils present and Yes Normal hearing present Speech: No Abnormal speech present Extrem General: Yes normal to inspection, No clubbing, No cyanosis and No edema Psych Appearance: grossly normal and well kempt Mental Status: mental status grossly normal Speech and movement: Normal speech and movement present Affect: normal affect Attitude: cooperative Thought process: Normal thought process present and not confabulating Thought content: Normal thought content present Insight: Good insight present (Psych) Judgement: Good judgement present (Psych) Assessment & Plan Assessment & Plan (1) SALINAS (nonalcoholic steatohepatitis): Comment: BASELINE LABS: 05/2018 liver functions normal, 06/2018 autoimmune workup and hepatitis screening negative, initial alpha fetoprotein 1.1, 2. Elevated bilirubin - R17, Gilbert's syndrome, direct bili is normal CURRENT LABS 12/23/22 Plt Count 183 Total Bilirubin 0.9 AST 40 H ALT 91 H Alkaline Phosphatase 118 H 12/23/22 Fasting Glucose 103 H US OF THE ABD 10/16/22 IMPRESSION: 1. Hepatic steatosis with focal area of fatty sparing near the gallbladder. ? 2. Liver elastography: Median liver stiffness measures 1.82 m/s? which corresponds to cACLD (suggestive). Code(s): K75.81 - Nonalcoholic steatohepatitis (SALINAS) Category: Medical Plan Patient has been lost to follow-up since 07/2024 He had a weight spike in the Winter but then he went to [facility] and lost the weight again. He has not had time for pilates, but is using his home gym and treadmill. He is not interested in bariatric surgery. This is not for everyone. He is also unsure of using GLP-1. He is doing well on his CPAP for ELINA. ROV 6 mos Coding Level of Care Code Est Pt Level 3 (85383) Diagnoses SALINAS (nonalcoholic steatohepatitis) K75.81
[2025-04-07 09:26] VITALS: BP 140/77; PULSE 86; O2SAT 96; BMI 38.5
== END 2025-04-07 09:56 | disposition home or self-care (01) ==
LOC: HO.HGI 09:23
PROVIDERS: PCP Nurse Practitioner Family; Visit Provider Nurse Practitioner
DX: K75.81 Nonalcoholic steatohepatitis (NASH) (principal)
CPT/HCPCS: 99213

== ENCOUNTER → 2025-04-07 09:22 | Outpatient (BNVA) | payer BC, SELFPAY | PROVIDERS: PCP Nurse Practitioner Family; Visit Provider Nurse Practitioner ==

== ENCOUNTER 2025-06-01 07:43 | Outpatient (AMB) | payer BC, SELFPAY ==
--- NOTE | 2025-06-01 07:59 | A.OFFVIS_ITS ---
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 Accompanied by: Self / Same As Patient Allergies acetaminophen (ACETAMINOPHEN) Allergy (Severe, Verified 06/01/25 08:12) HIVES, SWOLLEN LIPS Sulfa (Sulfonamide Antibiotics) (SULFA (SULFONAMIDE ANTIBIOTICS)) Allergy (Intermediate, Verified 06/01/25 08:12) RASH chlorthalidone Adverse Reaction (Unknown, Verified 06/01/25 08:12) impotence Medication List - Last Reconciled 06/01/25 by José Mcdonough MD albuterol sulfate 90 mcg/actuation inhalation allopurinol 300 mg PO DAILY ibuprofen 600 mg PO Q6H PRN levocetirizine (Xyzal) 5 mg PO DAILY losartan 100 mg PO DAILY ropinirole ER 2 mg PO BEDTIME tadalafil (Cialis) 5 mg PO DAILY HPI Comments Details: 06/01/25- History of Present Illness - The patient is a 35-year-old male presenting with erectile dysfunction. - Erectile dysfunction has been a concern for the patient, and he has been prescribed daily Cialis 5 mg, which has improved the situation compared to higher doses that caused headaches. - Despite the medication, the patient reports difficulty maintaining erections, which may be influenced by situational stress or anxiety. - The patient has attempted using a constriction ring, but found it painful and ineffective. - Obesity is a comorbidity, and the patient has been advised on lifestyle changes and weight loss. - The patient is participating in a weight loss program and is trying to establish a regular exercise routine. - plan we will check testosterone on next years follow-up 04/18/2024--Sumit is being evaluated for erectile dysfunction. He states that he feels the problem started 2-3 years ago after he has a Proscar for hair loss. He was prescribed Cialis 5 mg daily. He was sent for hormone levels and PSA. I have reviewed results with him. Testosterone level is low normal. The patient states he has been using the Cialis 5 mg daily and has noticeable improvement in erections. He is satisfied with the results. At this time we will not prescribe testosterone replacement. Follow-up in 1 year Labs: PSA-04/11/2024-0.44 ng/mL, FSH 2.1 and LH 2.8, prolactin 8.4 within normal limits Total testosterone 280 ng/dL, free testosterone 58pg/mL. 02/26/2024--Erectile dysfunction, states started about 2 or 3 years ago he was having hair loss was prescribed Proscar Tried sildenafil the headaches is taking tadalafil 10 mg with mild improvement. Plan check hormone levels, Cialis 5 mg daily [facility] Medical History ELINA on CPAP Transaminitis Right otitis media Right acute otitis media Family history of psoriatic arthritis Upper respiratory tract infection Screening PSA (prostate specific antigen) Annual physical exam Anxiety DJD (degenerative joint disease) Hyperuricemia Morbid obesity Nocturnal leg cramps Hypersomnia Snoring Mid back pain on right side Lower back pain Erectile dysfunction Overweight Alopecia HTN (hypertension) Vitamin D deficiency Depression Surgical History History of wisdom tooth extraction Family History Father Diverticulitis Arthritis Mother Bipolar disorder HTN (hypertension) Maternal Grandmother No problems noted. Maternal Grandfather Stroke Unknown family medical history Paternal Grandmother Stroke Paternal Grandfather Unknown family medical history Brother No problems noted. 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/hazards: No Cognitive needs: No Hearing needs: No Vision needs: Yes Review of Systems Const All systems reviewed & are unremarkable except as noted in HPI and below Reports no additional complaints Eyes Reports no additional complaints ENT Reports no additional complaints Card Reports no additional complaints Resp Reports no additional complaints GI Reports no additional complaints Reports as per HPI Musc Reports no additional complaints Skin/Breast Reports system reviewed and no additional complaints, except as documented Neuro Reports no additional complaints Psych Reports no additional complaints Endo Reports no additional complaints David/Lymph Reports no additional complaints Aller/Immun Reports no additional complaints Results AMB Urinalysis, Automated UA Leukoctes 0 Ben/uL Last Edit by [place] on 06/01/25 10:52 UA Nitrite Negative Last Edit by [place] on 06/01/25 10:52 UA Urobilinogen 3.5 mg/dL Last Edit by [place] on 06/01/25 10:52 UA Protein 0 mg/dL Last Edit by [place] on 06/01/25 10:52 UA pH 6.0 Last Edit by [place] on 06/01/25 10:52 UA Blood 0 Damien/uL Last Edit by [facility] [place] on 06/01/25 10:52 UA Specific Minto 1.025 Last Edit by [facility] [place] on 06/01/25 10:52 UA Ketone Negative Last Edit by [place] on 06/01/25 10:52 UA Bilirubin 0 mg/dL Last Edit by [place] on 06/01/25 10:52 UA Glucose 0 mg/dL Last Edit by [place] on 06/01/25 10:52 Assessment & Plan Assessment & Plan (1) Overweight: Code(s): E66.3 - Overweight Category: Medical (2) Erectile dysfunction: Code(s): N52.9 - Male erectile dysfunction, unspecified Category: Medical Plan Continue Cialis 5 mg daily. The patient states he is back in the weight loss program and he is trying to get a exercise routine Follow-up in 1 year, we will re-evaluate testosterone levels Orders: Orders AMB Urinalysis Automated Today Z13.9 - Encounter for screening, unspecified Testosterone, Free/Total 10 Months N52.9 - Male erectile dysfunction, unspecified Medications: Refilled tadalafil (Cialis) 5 mg PO DAILY 30 tabs 9RF Patient Instructions: The patient had an opportunity to ask questions regarding treatment plan. The patient expressed understanding and agreement with the above treatment plan. The patient is aware they should contact our office by phone for worsening of their current condition or the appearance of new symptoms. Compliance is encouraged with any medications and followup testing that is ordered. It is a privilege to be allowed the opportunity to participate in the urologic care of your patient. If you have any questions or concerns regarding treatment for the above conditions please do not hesitate to contact me. The office telephone contact is [phone]. This note is constructed in part using voice recognition software. While every effort has been made to ensure accuracy chief construction inspector errors may have been included. Yours sincerely, José Mcdonough MD Scribe Plan - Not visible on output: Patient was informed and verbally consented to the use of an ambient scribe for clinic note documentation during this visit. Coding Level of Care Code Est Pt Level 3 (60606) Complex EM visit Add On G2211 Diagnoses Overweight E66.3 Erectile dysfunction N52.9
== END 2025-06-01 08:35 | disposition home or self-care (01) ==
LOC: HO.HUSH 07:44
PROVIDERS: PCP Nurse Practitioner Family; Visit Provider Urology
DX: E66.3 Overweight (principal); N52.9 Male erectile dysfunction, unspecified; Z13.9 Encounter for screening, unspecified
CPT/HCPCS: 99213

== ENCOUNTER → 2025-06-01 07:43 | Outpatient (BNVA) | payer BC, SELFPAY | PROVIDERS: PCP Nurse Practitioner Family; Visit Provider Urology | DX: E66.3 Overweight (principal) | CPT/HCPCS: 81003 ==

== ENCOUNTER 2025-09-26 07:56 | Outpatient (AMB) | payer BC, SELFPAY ==
[2025-09-26 08:00] VITALS: BP 128/78; PULSE 89; O2SAT 96; BMI 40.7
--- NOTE | 2025-09-26 08:00 | MHC.OFFVIS ---
Vital Signs 09/26/25 08:00 Height 6 ft 4 in Weight 334 lb 6 oz BMI 40.7 BP 128/78 Blood Pressure Location Lt brachial Position Sitting Pulse 89 Pulse Source Pulse Oximeter Pulse Oximetry (%) 96 Oxygen Delivery Method Room Air Intake Visit Reasons: Follow Up 6mo Intake Note: Patient presents follow up ELINA. He tried calling ENT and they never got back to him. Accompanied by: Self / Same As Patient Allergies acetaminophen (ACETAMINOPHEN) Allergy (Severe, Verified 09/26/25 08:04) HIVES, SWOLLEN LIPS Sulfa (Sulfonamide Antibiotics) (SULFA (SULFONAMIDE ANTIBIOTICS)) Allergy (Intermediate, Verified 09/26/25 08:04) RASH chlorthalidone Adverse Reaction (Unknown, Verified 09/26/25 08:04) impotence HPI Comments Details: 35 y/o male with HTN and NAFLD presents for a follow up of ELINA. HST was c/w mild sleep apnea AHI is 9, REM AHI is 30 with O2 etta to 81% and <88% for 2.2 min, 10% of sleep c/w snoring. 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 He uses a rescue inhaler for environmental asthma. He feels better in the morning when using his oral appliance device from the dentist. He has anxiety and would like to be evaluated once again to determine if cpap use is the gold standard for him given his co-morbidities. He wakes up with morning headache which resolve after eating breakfast and hydrating. He does not get enough air into his airway with his oral appliance. He goes to bed at 10pm and wakes up at 6am with 1-2 bathroom breaks. He feels well rested when using his oral appliance however is anxious about infections, viruses, and bacteria. He never takes an afternoon nap anymore. Patient education provided today about monitoring and compliance of AHI, not possible with mouth gaurd and his Mallampti score is 4 with multiple co-morbities, he is not a good candidate for Inspire therapy as his AHI is 9. His weight fluctuates, he exercises on his [place] 3x a week for 30min and walks daily he is being followed by med. weight management. Memory and mood is stable. RLS He is doing well on ropinirole XR 2mg qhs and tried Gabapentin in the past though he had s/e of drowsiness, which prevented him from going to work in the morning and nausea. He has jumpy legs, which wake him up from sleep. He has to constantly move his legs due to numbness, tingling, pins and an uncomfortable sensation. This causes him to have fragmented sleep and multiple night time arousals. [facility] Medical History ELINA on CPAP Transaminitis Right otitis media Right acute otitis media Family history of psoriatic arthritis Upper respiratory tract infection Screening PSA (prostate specific antigen) Annual physical exam Anxiety DJD (degenerative joint disease) Hyperuricemia Morbid obesity Nocturnal leg cramps Hypersomnia Snoring Mid back pain on right side Lower back pain Erectile dysfunction Overweight Alopecia HTN (hypertension) Vitamin D deficiency Depression Surgical History History of wisdom tooth extraction Family History Father Diverticulitis Arthritis Mother Bipolar disorder HTN (hypertension) Maternal Grandmother No problems noted. Maternal Grandfather Stroke Unknown family medical history Paternal Grandmother Stroke Paternal Grandfather Unknown family medical history Brother No problems noted. 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/hazards: No Cognitive needs: No Hearing needs: No Vision needs: Yes Physical Exam Vital Signs: Last Vital Signs Pulse 89 09/26/25 08:00 BP 128/78 09/26/25 08:00 Pulse Ox 96 09/26/25 08:00 Oxygen Delivery Method Room Air 09/26/25 08:00 BMI result Body Mass Index 40.7 Const General: cooperative and healthy appearing Nutritional Appearance: obese morbidly obese Orientation/consciousness: oriented to person and patient oriented x3 Limitations: no limitations HEENT Head: Yes normocephalic and Yes atraumatic Eyes Pupils: Equal, round and reactive pupils present Neuro Other: Mallampti score is 4. Feet - out-toeing -femoral retroversion?- Degenerative Joint Disease. Gait is waddling. General: oriented to person, patient oriented x3, gait normal, moves all extremities and no focal motor deficits Cranial nerves: Yes Facial sensation intact/muscles of mastication intact, Yes Equal, round and reactive pupils present, Yes Normal accommodation reflex present, Yes Bilaterally intact EOM present, Yes Nystagmus not present, Yes Normal facial strength present, Yes Midline tongue present, Yes Ability to bilaterally rotate head present and Yes Ability to bilaterally elevate shoulders present Gait exam (Neuro): Other gait observations present (waddling due to out - toeing) Motor exam (neuro): 5/5 motor strength present throughout and Normal motor muscle tone present throughout Deep tendon reflexes (DTR's): Right triceps reflex intensity grade: 2+, Left triceps reflex intensity grade: 2+, Rt Biceps (C5, C6): 2+, Left biceps reflex intensity grade: 2+, Right brachioradialis reflex intensity grade: 2+, Left brachioradialis reflex intensity grade: 2+, Right patellar reflex intensity grade: 2+, Left patellar reflex intensity grade: 2+, Right ankle reflex intensity grade: 2+ and Left ankle reflex intensity grade: 2+ Coordination: [id number] test normal Psych Appearance: grossly normal Mental Status: mental status grossly normal Thought process: Normal thought process present Thought content: Normal thought content present Results Reviewed Results Reviewed: HST was c/w mild sleep apnea AHI is 9, REM AHI is 30 with O2 etta to 81% and <88% for 2.2 min, 10% of sleep c/w snoring. Labs are from 12/2024, and reviewed with pt today. Assessment & Plan Assessment & Plan (1) ELINA (obstructive sleep apnea): Code(s): G47.33 - Obstructive sleep apnea (adult) (pediatric) Category: Medical (2) Morbid obesity: Code(s): E66.01 - Morbid (severe) obesity due to excess calories Category: Medical (3) Anemia: Code(s): D64.9 - Anemia, unspecified Category: Medical Qualifiers: Anemia type: iron deficiency Iron deficiency anemia type: unspecified iron deficiency Qualified Code(s): D50.9 - Iron deficiency anemia, unspecified (4) Restless legs syndrome (RLS): Code(s): G25.81 - Restless legs syndrome Category: Medical (5) DJD (degenerative joint disease): Code(s): M19.90 - Unspecified osteoarthritis, unspecified site Category: Medical Qualifiers: Osteoarthritis location: ankle Osteoarthritis type: primary Laterality: bilateral Qualified Code(s): M19.071 - Primary osteoarthritis, right ankle and foot; M19.072 - Primary osteoarthritis, left ankle and foot (6) Nocturnal leg cramps: Code(s): G47.62 - Sleep related leg cramps Category: Medical (7) Obesity (BMI 30-39.9): Code(s): E66.9 - Obesity, unspecified Category: Medical (8) Restless leg syndrome, familial: Code(s): G25.81 - Restless legs syndrome Category: Medical Plan ELINA Continue Oral Device as needed, however will refer to ENT for Inspire evaluation, as he is a good candidate for therapy. RLS Continue ropinirole XR 2mg qhs, continue using otc magnalife / rest less leg cream, heavy weighted blankets. Discontinue Gabapentin 300mg po qpm made him drowsy in the mornings and had nausea. He tried gabapentin from 01/2024 to 07/2024 and switched to Ropinirole as his symptoms worsened. He now may be a good candidate for the Nidra Therapy with [employer]. Will submit rx. PSG to evaluate severity of ELINA as pt would like to start his cpap use. Labs to r/o deficiencies and anemia. 3 month f/u Orders: Orders TSH reflex Free T4 Today D64.9 - Anemia, unspecified, E66.01 - Morbid (severe) obesity due to excess calories Ferritin Today D64.9 - Anemia, unspecified, E66.01 - Morbid (severe) obesity due to excess calories Comprehensive Met. Panel Today D64.9 - Anemia, unspecified, E66.01 - Morbid (severe) obesity due to excess calories Complete Blood Count no Diff Today D64.9 - Anemia, unspecified, E66.01 - Morbid (severe) obesity due to excess calories Hemoglobin A1c Today D64.9 - Anemia, unspecified, E66.01 - Morbid (severe) obesity due to excess calories Homocysteine Today D64.9 - Anemia, unspecified, E66.01 - Morbid (severe) obesity due to excess calories, G47.9 - Sleep disorder, unspecified, R53.83 - Other fatigue Methylmalonic Acid Today D64.9 - Anemia, unspecified, E66.01 - Morbid (severe) obesity due to excess calories, G47.9 - Sleep disorder, unspecified, R53.83 - Other fatigue Vitamin D 25-OH Total Today D64.9 - Anemia, unspecified, E66.01 - Morbid (severe) obesity due to excess calories Vitamin B12 and Folate Today D64.9 - Anemia, unspecified, E66.01 - Morbid (severe) obesity due to excess calories RT PSG in-lab sleep study Today G47.33 - Obstructive sleep apnea (adult) (pediatric) Medications: New [nidra by [employer]] As directed Nidra by [employer], large sized device, tonic motor activation device. 1 ea 0RF Rest less Legs Syndrome G25.81 - Restless legs syndrome [nidra by [employer]etch[employer]] As directed Nidra by [employer], large sized device, tonic motor activation device. 1 ea 0RF Rest less Legs Syndrome G25.81 - Restless legs syndrome Patient Instructions: Sleep Hygiene provided: set a scheduled bedtime and wake time to help regulate the circadian rhythm and balance the release of pituitary hormones. Sleep in a dark room, temperatures below 68 degrees, and no devices n bed. Limit caffeinated products 6 hours prior to bed, and limit fluids 2-4 hours prior to bed. Gentle night yoga, diffusing essential oils, and playing soft music can be relaxing. Coding Level of Care Code Est Pt Level 4 (59889) Diagnoses ELINA (obstructive sleep apnea) G47.33 Morbid obesity E66.01 Iron deficiency anemia, unspecified iron deficiency anemia type D50.9 Anemia type: iron deficiency Iron deficiency anemia type: unspecified iron deficiency Restless legs syndrome (RLS) G25.81 Primary osteoarthritis of both ankles M19.071; M19.072 Osteoarthritis location: ankle Osteoarthritis type: primary Laterality: bilateral Nocturnal leg cramps G47.62 Obesity (BMI 30-39.9) E66.9 Restless leg syndrome, familial G25.81
--- OUTSIDE RECORDS SUMMARY | 2025-09-26 08:01 | XMS_ITS | Clinical Summary ---
Author Organization [facility] Address [address] [place] [phone] Phone Care Team Providers Care Child Day Care Teacher Name Role Phone Margaret France CONTROL SUPERVISOR Primary Care Provider Allergies Active Allergy Reactions Criticality Noted Date Comments Sulfa (Sulfonamide Antibiotics) 07/31 Medications amoxicillin (AMOXIL) 875 MG tablet Active cholecalciferol , vitamin D3, (VITAMIN D3 ORAL) Active EPINEPHrine 0.1 mg/0.1 mL AtIn Inject 1 application as directed daily as needed (For symptoms of anaphylaxis: i.e. severe rash/itching, shortness or breath). 2 each 1 8 Active Social History Tobacco Use Types Packs/Day Years Used Date Smoking Tobacco: Never Smokeless Tobacco: Never Alcohol Use Standard Drinks/Week Comments Yes 0 (1 standard drink = 0.6 oz pur e alcohol) Education Answer Date Recorded Are you interested in more education? Not on leigha e 03/27/2023 Are you concerned about learning? Not on file 03/27/2023 No 03/27/2023 No 03/27/2023 Digital Access Answer Date Recorded No 04/28/2023 No 04/28/2023 No 04/28/2023 Reliable internet access at home? Not on file 04/28/2023 Device with a working camera? Not on file Sex and Gender Information Value Date Recorded Sex Assigned at Male 08/09/2018 8:23 AM EDT Legal Sex Male 8:14 AM EDT Gender Identity Male 08/09/2018 8:23 AM EDT Sexual Orientation Not on file Last Filed Vital Signs Vital Sign Reading Time Taken Comments Blood Pressure 150/97 08/09/2018 11:26 AM EDT Pulse 91 08/09/2018 11:26 AM EDT Temperature 36.8 C (98.2 F) 08/09/2018 11:26 AM EDT Respiratory Rate 18 08/09/2018 11:26 AM EDT Oxygen Saturation 99% 08/09/2018 11:26 AM EDT Inhaled Oxygen Concentration - - Weight 128.8 kg (284 lb) 08/09/2018 8:21 AM EDT Height 193 cm (6' 4 ) 08/09/2018 8:21 AM EDT Body Mass Index 34.57 08/09/2018 8:21 AM EDT Plan of Treatment Not on file Medical Devices Not on file Insurance O O O O O O Care Teams Child Day Care Teacher Relationship Specialty Start Date End Date Margaret France NP [address] [place] [address] [phone] [email or web address] PCP - General Family Medicine 08/09/18 Additional Source Comments The information contained in this document represents components of the legal health record. It is not the complete legal health record.[facility]
== END 2025-09-26 08:43 | disposition home or self-care (01) ==
LOC: HO.HSMS 07:58
PROVIDERS: PCP Nurse Practitioner Family; Visit Provider Physician Assistant Medical
DX: G47.33 Obstructive sleep apnea (adult) (pediatric) (principal); E66.01 Morbid (severe) obesity due to excess calories; D50.9 Iron deficiency anemia, unspecified; G25.81 Restless legs syndrome; M19.071 Primary osteoarthritis, right ankle and foot; M19.072 Primary osteoarthritis, left ankle and foot; G47.62 Sleep related leg cramps; E66.9 Obesity, unspecified
CPT/HCPCS: 99214

== ENCOUNTER 2025-10-07 07:43 | Outpatient (REF) | payer BC, SELFPAY ==
--- OUTSIDE RECORDS SUMMARY | 2025-10-07 07:46 | XMS_ITS | Clinical Summary ---
Author Organization [facility] Address [address] [place] [phone] Phone Care Team Providers Care Chemical Analyst Name Role Phone Margaret France [employer] SUPERVISOR Primary Care Provider Allergies Active Allergy [...] O O O O O Care Teams Chemical Analyst Relationship Specialty Start Date End Date Margaret France NP [address] [place] [address] [phone] [email or web address] PCP - General Family Medicine 08/09/18 Additional Source Comments The information contained in this document represents components of the legal health record. It is not the complete legal health record.[facility]
[2025-10-07 08:21] LABS: MANUAL DIFF FLAG NO
[2025-10-07 09:07] LABS: Hematocrit 48.4 % (42.0-52.0); Hemoglobin 16.7 g/dl (14.0-18.0); Imm Gran Abs Auto 0.01 X10*3/uL (0.00-0.03); Imm Gran Pct Auto 0.2 % (0.0-0.4); Lymphocytes Absolute Auto 2.3 X10*3/uL (1.2-4.9); Mean Corpuscular HGB Conc 34.5 g/dl (31.0-36.0); Mean Corpuscular Hemoglobin 29.2 pg (27.0-33.0); Mean Corpuscular Volume 84.6 fL (80.0-98.0); NRBC Abs Auto 0.000 X10*3/uL (0.0-0.012); NRBC Pct Auto 0.0 /100WBC (0.0-0.2); Platelet Count 161 X10*3/uL (160-400); Red Blood Count 5.72 X10*6/uL (4.60-5.80); White Blood Count 6.2 X10*3/uL (4.8-10.8)
[2025-10-07 09:44] LABS: Alanine Aminotransferase 55 U/L (0-40); Albumin Level 4.6 g/dL (3.5-5.0); Alkaline Phosphatase 120 U/L (39-117); Anion Gap 11 (12-20); Aspartate Amino Transferase 30 U/L (5-37); Blood Urea Nitrogen 22 mg/dL (9-16); Calcium 9.6 mg/dL (8.4-10.2); Carbon Dioxide 28 mmol/L (22-29); Chloride 103 mmol/L (96-108); Estimated Glomerular Filt Rate > 60; Potassium 4.4 mmol/L (3.3-5.1); Sodium 138 mmol/L (135-145); Total Protein 6.9 g/dL (6.5-8.0)
== END 2025-10-07 07:44 | disposition home or self-care (01) ==
LOC: HO.LAB 07:43
PROVIDERS: Absent Provider Physician Assistant Medical; PCP Nurse Practitioner Family; Visit Provider Nurse Practitioner
DX: K75.81 Nonalcoholic steatohepatitis (NASH) (principal)
CPT/HCPCS: 36415; 80053; 85025

== ENCOUNTER 2025-10-10 08:47 | Outpatient (AMB) | payer BC, SELFPAY ==
--- NOTE | 2025-10-10 08:53 | MHC.OFFVIS ---
Vital Signs 10/10/25 08:55 Height 6 ft 4 in Weight 321 lb BMI 39.1 BP 130/80 Blood Pressure Location Rt brachial Position Sitting Pulse 82 Pulse Source Pulse Oximeter Pulse Oximetry (%) 97 Oxygen Delivery Method Room Air Intake Visit Reasons: 6m Intake Note: Est pt for mgmt of fatty liver. CC: Pt denies any new GI concerns or sx at this time. Pt does report that he recently started GLP 1 therapy for weight loss. No concerns at this time pertaining to the medication. 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 Elevated bilirubin - R17, Gilbert's syndrome, direct bili is normal CURRENT LABS 12/23/22 Plt Count 183 Total Bilirubin 0.9 AST 40 H ALT 91 H Alkaline Phosphatase 118 H 12/23/22 Fasting Glucose 103 H US OF THE ABD 10/16/22 IMPRESSION: 1. Hepatic steatosis with focal area of fatty sparing near the gallbladder. ? 2. Liver elastography: Median liver stiffness measures 1.82 m/s? which corresponds to cACLD (suggestive). Code(s): K75.81 - Nonalcoholic steatohepatitis (SALINAS) Category: Medical Plan Patient has been lost to follow-up since 07/2024 He had a weight spike in the Winter but then he went to [facility] and lost the weight again. He has not had time for pilates, but is using his home gym and treadmill. He is not interested in bariatric surgery. This is not for everyone. He is also unsure of using GLP-1. He is doing well on his CPAP for ELINA. ROV 6 mos LABS: Laboratory Tests 01/11/25 10/07/25 08:20 08:20 Plt Count 161 Total Bilirubin 0.8 1.2 H AST 39 H 30 ALT 62 H 55 H Alkaline Phosphatase 120 H TODAY'S VISIT [facility]LY [facility] Medical History ELINA on CPAP Transaminitis Right otitis media Right acute otitis media Family history of psoriatic arthritis Upper respiratory tract infection Screening PSA (prostate specific antigen) Annual physical exam Anxiety DJD (degenerative joint disease) Hyperuricemia Morbid obesity Nocturnal leg cramps Hypersomnia Snoring Mid back pain on right side Lower back pain Erectile dysfunction Overweight Alopecia HTN (hypertension) Vitamin D deficiency Depression Surgical History History of wisdom tooth extraction Family History Father Diverticulitis Arthritis Mother Bipolar disorder HTN (hypertension) Maternal Grandmother No problems noted. Maternal Grandfather Stroke Unknown family medical history Paternal Grandmother Stroke Paternal Grandfather Unknown family medical history Brother No problems noted. Maternal Aunt Multiple sclerosis Social History Housing: House Alcohol intake: current Alcohol intake frequency: a few times a week Patient Tobacco Use Status: Never used Tobacco e-Cigarette/Vaping Use: Never Used service: No Current occupational status: employed Current occupation: Current occupational exposures/hazards: No Cognitive needs: No Hearing needs: No Vision needs: Yes Review of Systems Const Denies fatigue, Denies fever(s), Denies night sweats, Denies poor appetite and Denies weight loss ENT Reports Normal hearing present, Denies dental pain, Denies dysphagia, Denies hearing loss, Denies mouth pain, Denies odynophagia, Denies throat swelling, Denies tongue swelling and Reports other (Dentition adequate) Card Reports no additional complaints Resp Reports no additional complaints GI Details: Denies abdominal pain, Denies melena, Denies bloating, Denies hematochezia, Denies constipation, Denies GI cramping, Denies dysphagia, Denies excessive flatus, Denies early satiety, Denies heartburn, Denies diarrhea, Denies nausea, Denies odynophagia, Denies vomiting and Denies hematemesis Skin/Breast Denies pruritus, Denies lesions, Denies rash and Denies jaundice Neuro Reports Normal hearing present and Denies Abnormal speech present Endo Denies fatigue Aller/Immun Denies throat swelling and Denies tongue swelling Physical Exam Vital Signs: Last Vital Signs Pulse 82 10/10/25 08:55 BP 130/80 10/10/25 08:55 Pulse Ox 97 10/10/25 08:55 Oxygen Delivery Method Room Air 10/10/25 08:55 BMI result Body Mass Index 39.1 Const General: cooperative, no acute distress, well developed and well groomed Nutritional Appearance: well nourished and obese Orientation/consciousness: oriented to person, oriented to place and oriented to time Limitations: No language barrier HEENT Head: Yes normocephalic and Yes atraumatic Eyes General: appearance normal, both eyes and all related structures Pupils: Equal, round and reactive pupils present Neck Neck: Yes normal visual inspection and Yes no lymphadenopathy Thyroid: Thyroid normal Resp Effort & Inspection: normal respiratory effort and able to speak in complete sentences Auscultation: clear to auscultation bilaterally Cardio Rate: regular rate Rhythm: regular rhythm Heart sounds: Normal, physiologic split S2 sound present Peripheral pulses: radial pulses present and posterior tibial pulses present GI Inspection: No distended, No Abdominal panniculus present and Yes obesity Palpation (GI): Soft to palpation, nontender, no guarding, not rigid and No hepatosplenomegaly present Percussion: Yes normal to percussion Auscultation: normal bowel sounds Rectal Exam - Male: Yes deferred Skin General skin exam: no rashes or lesions noted, turgor normal, skin not dry, no jaundice, No spider nevi and no striae Rashes: no rashes Nails: normal Neuro General: oriented to person, oriented to place and oriented to time Cranial nerves: Yes Equal, round and reactive pupils present and Yes Normal hearing present Speech: No Abnormal speech present Extrem General: Yes normal to inspection, No clubbing, No cyanosis and No edema Psych Appearance: grossly normal and well kempt Mental Status: mental status grossly normal Speech and movement: Normal speech and movement present Affect: normal affect Attitude: cooperative Thought process: Normal thought process present and not confabulating Thought content: Normal thought content present Insight: Good insight present (Psych) Judgement: Good judgement present (Psych) Results Reviewed Results Reviewed: 01/11/2511/08/25 08:2008:20Plt Count 161Total Bilirubin 0.8 1.2 HAST 39 H 30ALT 62 H 55 HAlkaline Phosphatase 120 H Assessment & Plan Assessment & Plan (1) SALINAS (nonalcoholic steatohepatitis): Comment: BASELINE LABS: 05/2018 liver functions normal, 06/2018 autoimmune workup and hepatitis screening negative, initial alpha fetoprotein 1.1, 2. Elevated bilirubin - R17, Gilbert's syndrome, direct bili is normal CURRENT LABS 01/11/2511/08/25 08:2008:20 Plt Count 161 Total Bilirubin 0.8 1.2 H AST 39 H 30 ALT 62 H 55 H Alkaline Phosphatase 120 H US OF THE ABD 10/16/22 IMPRESSION: 1. Hepatic steatosis with focal area of fatty sparing near the gallbladder. ? 2. Liver elastography: Median liver stiffness measures 1.82 m/s? which corresponds to cACLD (suggestive). Code(s): K75.81 - Nonalcoholic steatohepatitis (SALINAS) Category: Medical Plan Through intentional dieting he has lost 10-12 lb. It really shows in his liver function testing as he has AST has normalized and his ALT is lower than had been in the past. I continue to encourage him to work on these productive lifestyle changes. We have had an ultrasound in awhile so we will get that going. Return office visit in 6 months Orders: Orders US abdomen complete Today K75.81 - Nonalcoholic steatohepatitis (SALINAS) Coding Level of Care Code Est Pt Level 3 (56002) Diagnoses SALINAS (nonalcoholic steatohepatitis) K75.81
[2025-10-10 08:55] VITALS: BP 130/80; PULSE 82; O2SAT 97; BMI 39.1
== END 2025-10-10 09:18 | disposition home or self-care (01) ==
LOC: HO.HGI 08:48
PROVIDERS: PCP Nurse Practitioner Family; Visit Provider Nurse Practitioner
DX: K75.81 Nonalcoholic steatohepatitis (NASH) (principal)
CPT/HCPCS: 99213